=== PATIENT | female | born 1975 | race Caucasian/White ===

== ENCOUNTER 2025-02-13 20:11 | Emergency (ER) | payer OTHER, SELFPAY ==
--- OUTSIDE RECORDS SUMMARY | 2024-10-04 05:33 | XMS_ITS | Continuity of Care Document ---
Author Organization [facility] Address [address] [address] [place] [address] Phone Care Team Providers Care Film Inspector Name Role Phone Azam Gutierres MD Unavailable Unavailabl e Allergies, Adverse Reactions, Alerts Substance Reaction Status Criticality adhesive tape Rash Active No Information latex Angioedema Active No Information acetaminophen ItchingItching Active No Informati on Cephalosporins HivesHives Active No Informatio n doxycycline Nausea/Vomiting Active No Informati on levofloxacin Severe joint pain Active No Informa tion Sulfa (Sulfonamide Antibiotics) Angioedema Active No Information Medications Medication Instructions Dosage Effective Dates (start - stop) Status Comments omeprazole 40 mg capsule,delayed release take 1 capsule by oral route every day before a meal 40 MG - Active Benadryl Allergy 25 mg tablet take 1 tablet by oral route every 4 - 6 hours as needed 25 MG - Active ibuprofen 200 mg tablet take 1 tablet by oral route every 6 hours as needed with food 200 MG - Active metformin 500 mg tablet take 2 tablet by oral route every day - Active Vitamin D2 1,250 mcg (50,000 unit) capsule take 2 tablet by oral route every week 2 tablet - Active Procedures Procedure Date New Level 4 Advance Directives Directive Yes / No Effective Date File Name No Information Encounters Encounter Description Practice Location Reason(s) For Visit Diagnoses Date Provider Providers Copied on Encounter [facility], [address] [address], [place], [place], [id number], [place] tel:[phone] [facility] No Information Chidi Nascimento. [address] [facility] [address], [place], [place], [id number], [place]. tel:[phone] [facility] Level 4 [facility] [address] [address], [place], [place], [id number], [place] tel:[phone] [facility] GI Symptoms or Concerns (chief complaint) Chronic GERDRight upper quadrant painChange in bowel habits Shante Buck. [address], [place], [place], [id number], [place]. tel:[phone] Referring Provider: [place] , [address] [place], [address]. tel:[phone] Family History Family Member Type Diagnosis Age At Onset No Information Payers Payer name Insurance type Covered republican ID Authoriza tirebeka(s) [facility] [id number] Social History Type Description Quantity Date Captured Comments Sex Female Smoking Status No Information Chief Complaint And Reason For Visit No Information Reason For Referral Reason For Referral No Information Plan Of Treatment Date Type Action Status Referral Ordered: CT Abdomen And Pelvis WITH Contrast Appointment date/timeframe: 09/06/2024 ordered Referral Ordered: EGD Appointment date/timeframe: 10/19/2024 ordered Referral Ordered: Colonoscopy Appointment date/timeframe: 10/19/2024 ordered History Of Present Illness Encounter Date Complaint History Of Prese nt Illness GI Symptoms or Concerns This is a very pleasant 49-year-old female who presents as a new patient for evaluation of multiple symptoms. We do not have all records available for us to review. However patient reports having medical issues since 2023. Patient reports starting having abdominal pain with nausea vomiting lasts. Patient was then diagnosed with large ovarian lesion on the left ovary which was wrapping around the small bowel, colon, mesentery. She did have surgery performed to remove the ovarian lesion and states that the lesion was not a malignancy. Patient continued to have abdominal pain and repeat imaging showed ovarian lesion on the right ovary. We do not have any records recent office visits or pathology reports available for us to review at this point. Patient subsequently developed C diff colitis in July 2024. She finished treatment with vancomycin for 2 week course. She has been off vancomycin for approximately 2 weeks and feels much improved. Her diarrhea is much improved as well Functional Status Date Functional Assessmen t No Information Instructions Date Instruction Additional Infor el -increase omeprazole 40 mg once daily-proceed with egd/colonosopy -proceed with CT scan abdomen/pelvis-request lab records done by PCP-f/u in 1-2 months Related to Chronic GERD Assessments Type Assessment Date No Information Patient Care Teams Name Effective Dates (start - stop) Status Members No Information
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
--- OUTSIDE RECORDS SUMMARY | 2025-01-02 09:30 | XMS_ITS | Encounter Summary ---
Author Organization [facility] Address [address] [place] [address] Care Team Providers Care Car Wash Supervisor Name Role Phone Annalee Lerma APRN, CNP Primary Care Provider Reason for Visit * Reason Comments MEDICATION THERAPY MANAGEMENT * Consult/Transfer Care (Routine) - New Request Specialty Diagnoses / Procedures Referred By Chivo welsh Referred To Contact Diagnoses Hidradenitis suppurativa Kiah Denise MD [address] [place] [address] Phone: tel: fax: Referral ID Status Reason Start Date Expiration Date V isits Requested Visits Authorized [id number] New Request 12/18/2024 03/19/2026 1 1 Encounter Details Date Type Department Care Team (Late st Contact Info) Description 01/02/2025 9:30 AM CDT [facility] [address] [phone] Kee Ortega, PharmD [address] [place] [address] Hidradenitis suppurativa (Primary Dx) Social History Tobacco Use Types Packs/Day Years [...] Sex Assigned at Female 06/18/2022 1:13 PM LITIGATION PARALEGAL Legal Sex Female 7:25 AM CDT Gender Identity Not on file Sexual Orientation Not on file 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 Here are the things we discussed: Follow up with [facility] regarding approval or denial of Ilaris I will call you next week to check-in on the status of Ilaris I offer these suggestions to you and your medical providers with the understanding that I may not fully understand your past medical history and the complexity of your health conditions. By helping you be more active in your healthcare and medication management, we hope to improve yourquality of life! Any questions or concerns please call the clinic, or contact me via [employer]. Kee Ortega PharmD Medication Therapy Management Pharmacist - Dermatology [facility] & Naomi Gonzalez documented in this encounter Progress Notes * Kee Ortega PharmD - 01/02/2025 9:30 AM CDT Subjective Susy Soraida De Los Santos is a 49 y.o. female who was referred by Naomi Gonzalez dermatology seen over the phone for medication review/education and medication access. Patient???s main concern today is to initiate biologic therapy. Allergies: Allergies Allergen Reactions Cefdinir Itching, Other, see comments and Gastrointestinal Diaphoresis (sweating) Possibly will react poorly to other beta-lactam antibiotics Methylprednisolone Hives and Other, see comments Consistent pattern of worsened symptoms after completing a course -- similar to a rebound effect Sulfa Antibiotics Hives and Blisters Hydromorphone Other, see comments Intolerance ONLY NEEDS LESS DOSE Clindamycin Gastrointestinal ORAL clindamycin - GI upset TOPICAL clindamycin - hives Doxycycline Gastrointestinal Within 20 minutes, had nonstop vomiting Levofloxacin Edema,generalized and Swelling Prochlorperazine Other, see comments akathesia, wigging out Reglan [Metoclopramide] Other, see comments Akathesia, per patient. Insurance: [employer] Diagnosis: Hidradenitis suppurativa Patient also has history of mast cell activation (significantly triggered in 2019 by pesticide exposure and possibly medication overdosing due to unknown variant liver metabolism, and consequent ongoing chemical intolerance). Per occupational and environmental medicine (Dr. Apple on 11/16/24): We again discussed biologic treatment, which appears to be supported by her [facility] evaluations. We discussed either Xolair (IgE) or Humira (TNF-alpha); the former has had success in [facility] patients, whereas the latter can be used in hidradenitis suppurativa patients, and notably she has had TNF-alpha elevations with labs. - We will reach out to Dr. Chambers of Dermatology regarding biologic medication administration and these medication options. Per rheumatology (Dr. Harper at [facility] on 11/24/24): Her array of symptoms do raise concern tim autoinflammatory syndrome, of which IL-1 blockade could offer some benefit. She is in discussionwith her local phosphoric acid supervisor regarding an agent such as anakinra or canakinumab. As these conversations continue, recommend a trial of Plaquenil 400 mg daily to see if she has improvement in her bone/joint pain. Per dermatology (Dr. Chambers on 12/01/24): If biopsy confirms HS would recommend starting with topical therapy. Would stage her at [facility] stage 1. Could also consider oral agent such as Humira or other biologic but would hold on this pending further work up and treatment of her inflammatory condition. Patient to meet with her phosphoric acid supervisor and corporate risk analyst next week to discuss initiating Plaquenilvs. Anakinra. Will continue to follow and help with management pending biopsy results. Per chart review, unable to view notes from 12/07/24 (Dr. Carrillo with [facility]), but perpatient the anakinra was denied. Canakinumab was also denied, but she's in the process of applying for free drug coverage and has a contact at [employer] ([facility]). Current signs and symptoms: Affected areas include: stomach, feet, mouth, scalp, armpit, groin Per 12/18/[address] Denise: -Patient experiencing extreme pain in the groin and axilla region. It was very painful that last week she went to urgent care and was given antibiotics that were helpful. Overall her quality of life has been significantly impacted by this condition in her axilla and groin. She can no longer sit without pain and can not ride her motorcycle. She feels that she has no quality of life remaining. Last specialist visit and follow up plan: Per 12/18/[address] Denise: - Continue with Hibiclens wash daily with showers - due to the severity, the patient qualifies for systemic treatment - Given she did not tolerate doxycycline in the past and did well with Keflex will renew the medication for a three-month course 500 mg twice daily as below - Given concurrent PCOS we will start spironolactone 100 mg daily. Potassium level recently checkedand within normal limits. Discussed that it is a blood pressure medication and diuretic. Discussed could lead to breast tenderness and spotting - These to above systemic medications she would be a good place to start and we expect her to have substantial improvement. We can think about further escalation to biologic therapy in the future andtherefore we will order biologic screening labs here today. We will also place the referral to [facility] pharmacy to see if they have thoughts on potential biologic therapy especially when considering her mast cell activation syndrome. Does patient have history of: Inflammatory bowel disease no but issues with stomach (no official diagnosis of IBS, but has had severe stomach pain, very loose stools, and also constipation) Cancer no Demyelinating diseases no CHF no Exacerbating factors NSAIDS Beta blockers Corticosteroids Antimalarials Smoking - Social History Tobacco Use Smoking Status Former Current packs/day: 0.00 Types: Cigarettes Quit date: 1985 Years since quittin.5 Smokeless Tobacco Never Obesity - Estimated body mass index is 47.03 kg/m?? as calculated from the following: Height as of 10/02/24: 5' 4 (1.626 m). Weight as of 10/02/24: 274 lb (124.3 kg). Past medication trials: (all of the following were not effective long-term unless specifically stated) Per 12/18/[address] Denise: She had a terrible reaction to topical agents such as clindamycin and benzoyl peroxide. She has also not done well with antibiotics doxycycline. When she took doxycycline last she had to be hospitalized from how much she was throwing up. Spironolactone: tried for a few days, but experienced sweating, swollen ankles, and chills at night Plaquenil: experienced itchiness and tingling. Patient does not want to try methotrexate because she is concerned about methotrexate's side effects, particularly alopecia, and prefers to avoid it unless necessary. Current Medication List: Current Outpatient Medications (Anti-Infective Agents) Medication Sig cephalexin (KEFLEX) 500 MG capsule Take 1 Capsule (500 mg) by mouth two times a day. Current Outpatient Medications (Endocrine & Metabolic Agents) Medication Sig metFORMIN (GLUCOPHAGE) 500 MG tablet Take 1 Tablet (500 mg) by mouth two times a day with meals. Start with 250 mg (1/2 tablet) once daily for 4-7 days, then if tolerated increase to 500 mg (1 tablet) once daily for 4-7 days, then if tolerated increase to 750 mg (1 tablet morning, 1/2 tablet evening), then if tolerated increase to 1000 mg twice daily. Current Outpatient Medications (Cardiovascular Agents) Medication Sig spironolactone (ALDACTONE) 100 MG tablet Take 1 Tablet (100 mg) by mouth daily. Current Outpatient Medications (Antihistamines/Nasal Agents/Cough & Cold/Respiratory/Misc) Medication Sig ALBUTEROL SULFATE HFA IN Inhale 1-2 Puffs as needed. cyproheptadine (PERIACTIN) 4 MG tablet Take 0.5-1 Tablets (2-4 mg) by mouth three times a day as needed. diphenhydrAMINE (BENADRYL) 25 MG tablet Take 1 Tablet (25 mg) by mouth every 6 hours as needed for Itching. Current Outpatient Medications (Gastrointestinal Agents) Medication Sig famotidine (PEPCID) 20 MG tablet Take 1 Tablet by mouth two times a day. omeprazole (PRILOSEC) 20 MG capsule Take 1 Capsule (20 mg) by mouth two times a day. Take 1 hour before a meal. ondansetron (ZOFRAN-ODT) 4 MG disintegrating tablet Take 1 Tablet (4 mg) by mouth every 6 hours as needed for Nausea. Indications: Nausea and Vomiting Current Outpatient Medications (Central Nervous System Agents) Medication Sig LORazepam (ATIVAN) 0.5 MG tablet Take 0.5 Tablets (0.25 mg) by mouth two times daily as needed for Anxiety. Current Outpatient Medications (Neuromuscular Agents) Medication Sig tiZANidine (ZANAFLEX) 2 MG tablet Take 0.5-2 Tablets (1-4 mg) by mouth three times a day as needed. Current Outpatient Medications (Nutritional Products) Medication Sig Vitamin D, Ergocalciferol, 1.25 MG (93146 UT) CAPS Take 1 Capsule (50,000 Units) by mouth two timesa week. Current Outpatient Medications (Dermatological/Anorectal/Mouth-Throat/Dental/Ophthalmic/Otic) Medication Sig diphenhydrAMINE 2 % gel Apply topically three times a day as needed. mupirocin (BACTROBAN) 2 % ointment Apply topically two times a day. With dressing changes Adherence: Med cost concerns: yes, in the process of applying for free drug through [facility] Objective Lab Results Component Value Date/Time WBC 8.8 12/18/2024 03:48 PM HGB 12.8 12/18/2024 03:48 PM MCV 93.1 12/18/2024 03:48 PM PLTS 264 12/18/2024 03:48 PM PMN 5.9 12/18/2024 03:48 PM LYMA 2.2 12/18/2024 03:48 PM MONOA 0.5 12/18/2024 03:48 PM EOSA 0.2 12/18/2024 03:48 PM BASA 0.1 12/18/2024 03:48 PM AST 31 12/18/2024 03:48 PM ALT 26 12/18/2024 03:48 PM ALKPHOS 71 12/18/2024 03:48 PM BILIRUBINTOT 0.3 12/18/2024 03:48 PM ESR 31 (H) 01/13/2021 06:06 PM CRP 2.8 (H) 05/31/2024 08:00 AM Lab Results Component Value Date/Time BUN 13 12/18/2024 03:48 PM SODIUM 140 12/18/2024 03:48 PM K 3.9 12/18/2024 03:48 PM CHLORIDE 106 12/18/2024 03:48 PM BICARB 22 12/18/2024 03:48 PM GLUCOSE 107 (H) 12/18/2024 03:48 PM CREATININE 0.90 12/18/2024 03:48 PM GFR >60 12/18/2024 03:48 PM CA 9.2 12/18/2024 03:48 PM ANIONGAP 12 12/18/2024 03:48 PM HGBA1C 5.1 11/07/2024 06:55 AM Cholesterol Date Value Ref Range Status 02/07/2024 164 0 - 199 mg/dL Final HDL Cholesterol Date Value Ref Range Status 02/07/2024 31 (L) >=40 mg/dL Final LDL, Calculated Date Value Ref Range Status 02/07/2024 96 <130 mg/dL Final Lab Results Component Value Date/Time HBSAG Negative (Non Reactive) 12/18/2024 03:48 PM HBABR <2.0 12/18/2024 03:48 PM HBVCOREAB Negative (Non Reactive) 12/18/2024 03:48 PM ANTIHCV Negative (Non Reactive) 12/18/2024 03:48 PM HIV Negative (Non Reactive) 12/18/2024 03:48 PM TBQF Negative, M. tuberculosis Infection NOT likely 12/18/2024 03:48 PM NIL1 0.032 12/18/2024 03:48 PM BP Readings from Last 3 Encounters: 12/26/24 125/73 10/12/24 134/83 10/02/24 107/81 Pulse Readings from Last 3 Encounters: 10/12/24 84 10/05/24 96 10/02/24 64 Heart Health: As recommended by the [place] [employer], we use information about your health to estimate your risk for a heart attack or stroke. Your risk in the next 10 years is 1.8%. The information we used to estimate your risk is: Your age 49, sex, blood pressure of 107/81 mm Hg, use of blood pressure lowering medication, total cholesterol of 164 mg/dl, HDL (good cholesterol) of 31 mg/dl, no diagnosis of diabetes, no tobacco or nicotine use. You can improve your heart health by doing the following in order of priority: For information on self-directed lifestyle change for weight management, go to www.myhealthwizard.org PriorityWizard 02/21/2024 9:00 AM PHQ-9 PHQ9 Score - Smartform (Adult) 0 Index Date: No date on file. Vaccinations: --Immunization status: not up to date, did not discuss with patient due to time limitations Immunization History Administered Date(s) Administered Td 07/15/1997 Assessment Medications reviewed for adherence, indication, convenience, safety & affordability. BP goal: <130/80. Pt is at goal. LDL goal: no statin indicated. Pt is at goal. HgbA1C goal: <5.7%. Pt is at goal. 1. Hidradenitis suppurativa / autoinflammatory syndrome and biologic therapy DTP: Indication - Needs additional medication therapy - Synergistic therapy DTP Status: Pending Patient is indicated for biologic therapy due to failed trials of first- and second-line therapies for hidradenitis suppurativa. She has multiple conditions closely managed by different specialists and is in the process of obtaining canakinumab (Ilaris) per rheumatology. However, if she is unable to obtain the medication, then she is open to trying Humira. Consider avoiding Cosentyx due to past history of some irritable bowel symptoms. There is currently no evidence that the biologics we discussed today has an increased risk of mast cell activation. However, patient should be especially cautious and closely monitor for any new or worsening symptoms when initiating any new therapies. Plan Await approval or denial for Ilaris Pharmacist will follow-up next week Follow up with your providers as scheduled and recommended. AVS prepared with new medication info Updated [facility] med list and reviewed medications including indications with patient. Kee Ortega PharmD Clinical Pharmacist Medication Therapy Management Program Billing Requirements: Recipient of visit: Patient Medicare CI: no clinician location: home patient location: home Billing based on: Flat Fee Total time spent with patient: 31 - 45 min minutes # of DTPs: 1 # of DTPs resolved: 0 documented in this encounter Plan of Treatment Upcoming Encounters Date Type Department Care Team (Late st Contact Info) Description 02/26/2025 8:00 AM CDT Telemedicine [facility] [address] [place] [address] Nanda Ritter, PhD, LP [address] [place] [address] 03/08/2025 4:00 PM CDT Phone Visit [facility] [address] [place] [address] Bertrand Apple MD [address] [place] [address] 03/19/2025 8:00 AM CDT Telemedicine [facility] [address] [place] [address] Nanda Ritter, PhD, LP [address] [place] [address] 04/02/2025 8:00 AM CDT Telemedicine [facility] [address] [place] [address] Nadna Ritter, PhD, LP [address] [place] [address] 04/16/2025 8:00 AM LITIGATION PARALEGAL Telemedicine [facility] Management [address] [facility] [address] Nanda Ritter, PhD, LP [address] [place] [address] 04/30/2025 8:00 AM LITIGATION PARALEGAL Telemedicine [facility] [address] [facility] [address] Nanda Ritter, PhD, LP [address] [place] [address] 05/14/2025 8:00 AM LITIGATION PARALEGAL [facility] [address] [place] [address] Nanda Ritter, PhD, LP [address] [place] [address] 05/28/2025 8:00 AM LITIGATION PARALEGAL Telemedicine [facility] [address] [place] [address] Nanda Ritter, PhD, LP [address] [place] [address] Scheduled Referrals Name Type Priority Associated Diagnoses Orde r Schedule SPECIALTY PHARMACY-MEDICATION THERAPY MGMT-ADULT/PEDS Referral Routine Hidradenitis suppurativa Ordered: 12/18/2024 documented as of this encounter Visit Diagnoses Diagnosis Hidradenitis suppurativa- Primary Hidradenitis documented in this encounter Additional Health Concerns Infection Onset Date Last Indicated Resolved Time MRSA Comment:10/01/2017 from urgency room in [facility] absess 10/11/2018 10/11/2018 documented as of this encounter Care Teams Car Wash Supervisor Relationship Specialty Start Date End Date Annalee Lerma APRN, WILLIAM [address] [place] [phone] PCP - General Nurse Practitioner 04/12/24 documented as of this encounter
--- OUTSIDE RECORDS SUMMARY | 2025-01-08 07:00 | XMS_ITS | Encounter Summary ---
Author Organization [facility] Address [address] [place] [address] Care Team Providers Care Mixed Animal Veterinarian Name Role Phone DemiAnnalee terry Kaykay MIMS, WILLIAM Primary Care Provider Reason for Visit * Reason Onset Date Comments CHRONIC PAIN 01/07/2025 Encounter Details Date Type Department Care Team (Latest Contact Info) Description 01/08/2025 7:00 AM CDT Telemedicine [facility] Pain Management [address] 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 Patient location: home, Clinician location: home.office. At 8am today, I called Susy from my home office via [employer] and conducted this 53min video session. Susy was alone in her home. Patient presents today for an individual session, to address her chronic physical pain and associated complex health issues. Start time: 7:00am, End time: 7:53am. Total face to face Video time 53 minutes. Extended time ([id number]) was required for today???s session due to the patient having a highly complicated overall health presentation (medical and mental health). Based on today's clinical assessment of the patient, patient appears to have the capacity to participate and benefit from psychotherapeutic intervention. 02/21/2024 9:00 AM Last 3 PHQ-9 Scores PHQ-9 Score - SmartForm (Adult) 0 01/02/2025 9:30 AM LAST GAD7 SCORE DATE USHA-7 TOTAL SCORE 3 Focus of this session: Susy discussed relevant recent events since our last session. She underwent T8 injection by Dr. Mason also on 01/02/2025. She had productive meeting with [facility] last wk as well as [place] pharmacist. Tomorrow will be a very stressful day - will be going to court to give a statement. Her brother's murder is being released. Susy is giving a statement. I offered an additional video session tomorrow at 6pm to debrief. She accepted. Mood on today's call stable yet stressed. Much support and encouragement were offered during [...] be seen in approximately 2 weeks on 01/15/2025. Follow up on continued pacing, self-care. Future f/u 2024 Video sessions with this Psychologist: 01/09 at 6pm 8/4 at 8am 818 at 8am 9/2 [...] Info) Description 02/26/2025 8:00 AM CDT Telemedicine [facility] Pain Management [address] [place] [address] Nanda Ritter, PhD, LP [address] [place] [address] 03/08/2025 4:00 PM CDT Phone Visit [facility] [address] [place] [address] Bertrand Apple MD [address] [place] [address] 03/19/2025 8:00 AM CDT [facility] [address] [facility] [place] [address] Nanda Ritter, PhD, LP [address] [place] [address] 04/02/2025 8:00 AM CDT [facility] [address] [facility] [place] [address] Nanda Ritter, PhD, LP [address] [place] [address] 04/16/2025 8:00 AM HOSE TESTER [facility] Management [address] [place] [address] Nanda Ritter, PhD, LP [address] [place] [address] 04/30/2025 8:00 AM HOSE TESTER [facility] [address] [place] [address] Nanda Ritter, PhD, LP [address] [place] [address] 05/14/2025 8:00 AM HOSE TESTER [facility] [address] [place] [address] Nanda Ritter, PhD, LP [address] [place] [address] 05/28/2025 8:00 AM HOSE TESTER [facility] Management [address] [place] [address] Nanda Ritter, PhD, LP [address] [place] [address] documented as of this encounter Visit Diagnoses Diagnosis Pain disorder associated with psychological factors and medical condition ([facility])- Primary Chronic pain disorder Chronic pain syndrome documented in this encounter Additional Health Concerns Infection Onset Date Last Indicated Resolved Time MRSA Comment:10/01/2017 from urgency room in [facility] absess 10/11/2018 10/11/2018 documented as of this encounter Care Teams Mixed Animal Veterinarian Relationship Specialty Start Date End Date Annalee Lerma, PROCESS CONTROL PROGRAMMER, FLATWARE MAKER [address] [place] [phone] PCP - General Nurse Practitioner 04/12/24 documented as of this encounter
--- OUTSIDE RECORDS SUMMARY | 2025-01-09 17:00 | XMS_ITS | Encounter Summary ---
Author Organization Replaced by [facility] Address [address] [place] [address] Care Team Providers Care Telephone Technician Name Role Phone MargaritoYannick leungmarielena Cintron APRN, WILLIAM Primary Care Provider Encounter Details Date Type Department Care Team (Latest Contact Info) Description 01/09/2025 5:00 PM CDT Telemedicine [facility] Pain Management [address] [facility] 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 Patient location: home, Clinician location: home. Correction: location for this clinician was [facility] clinic office. At 6pm today, I called Susy from my home office via Dubizzle platform and conducted this 53min video session. Susy was alone in her home. Patient presents today for an individual session, to address her chronic physical pain and associated complex health issues. Start time: 5:00pm, End time: 5:53pm. Total face to face Video time 53 minutes. Extended time (31046) was required for today???s session due to [...] relevant recent events since our last session. Today was a very stressful day as she attended the parole hearing for her brother's murderer. Susy provided a victim statement for the parole board. She sounded very positive about this overall experience and admitted that it was a very emotional experience. It had a positive outcome - parole and clemency were denied which she was very grateful for. Mood on today's call relieved. Much support and encouragement were offered during [...] f/u 2024 Video sessions with this Psychologist: 01/15 at 8am 01/29 at 8am 9/2 Tues at 8am 915 Mon at 8am 10/6 Mon at 8am 10/20 Mon at 8am 11/3 Mon at 8am 11/17 Mon at 8am 12/1 Mon at 8am 12/15 Mon at 8am Collaborations: Occupational Medicine: Bertrand Apple MD and Godfrey Alejandra PA-C; [facility] Pain Management Clinic: Davis Mason MD. Ongoing therapy to address symptoms discussed in today's appointment. Nanda Ritter, PhD, ABPP, LP Board Certified in Clinical Psychology documented in this encounter Plan of Treatment Upcoming Encounters Date Type Department Care Team (Late st Contact Info) Description 02/26/2025 8:00 AM CDT Telemedicine [facility] Pain Management [address] [facility] [place] [address] Nanda Ritter, PhD, LP [address] [place] [address] 03/08/2025 4:00 PM CDT Phone Visit [facility] [address] [place] [address] Bertrand Apple MD [address] [place] [address] 03/19/2025 8:00 AM CDT Telemedicine [facility] Pain Management [address] [facility] [place] [address] Nanda Ritter, PhD, LP [address] [place] [address] 04/02/2025 8:00 AM CDT Telemedicine [facility] Pain Management [address] [facility] [place] [address] Nanda Ritter, PhD, LP [address] [place] [address] 04/16/2025 8:00 AM GAS PLUMBER Telemedicine [facility] Pain Management [address] [facility] [place] [address] Nanda Ritter, PhD, LP [address] [place] [address] 04/30/2025 8:00 AM GAS PLUMBER Telemedicine [facility] Pain Management [address] [place] [address] Nanda Ritter, PhD, LP [address] [place] [address] 05/14/2025 8:00 AM GAS PLUMBER Telemedicine [facility] Pain Management [address] [facility] [place] [address] Nanda Ritter, PhD, LP [address] [place] [address] 05/28/2025 8:00 AM GAS PLUMBER Telemedicine [facility] Pain Management [address] [place] [address] Nanda Ritter, PhD, LP [address] [place] [id number] documented as of this encounter Visit Diagnoses Diagnosis Pain disorder associated with psychological factors and medical condition (HRC)- Primary Chronic pain disorder Chronic pain syndrome documented in this encounter Additional Health Concerns Infection Onset Date Last Indicated Resolved Time MRSA Comment:10/01/2017 from urgency room in [facility] absess 10/11/2018 10/11/2018 documented as of this encounter Care Teams Telephone Technician Relationship Specialty Start Date End Date Annalee Lerma APRN, FLEET OPERATIONS MANAGER [address] [place] [phone] PCP - General Nurse Practitioner 04/12/24 documented as of this encounter
--- OUTSIDE RECORDS SUMMARY | 2025-01-15 08:00 | XMS_ITS | Encounter Summary ---
Author Organization [facility] Address [address] [place] [address] Care Team Providers Care Field Traffic Investigator Name Role Phone MargaritoYannick leungmarielena Cintron APRN, WILLIAM Primary Care Provider Encounter Details Date Type Department Care Team (Latest Contact Info) Description 01/15/2025 8:00 AM CDT Telemedicine [facility] Pain Management [address] [facility] 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 Patient location: home, Clinician location: home. At 6pm today, I called Susy from my home office via Addictive platform and conducted this 53min video session. Susy was alone in her home. Patient presents today for an individual session, to address her chronic physical pain and associated complex health issues. Start time: 8:00am, End time: 8:53am. Total face to face Video time 53 minutes. Extended time (37660) was required for today???s session due to [...] relevant recent events since our last session. Processed family updates. No new pain issues noted. Mood on today's call euthymic and stable. Much support and encouragement were offered during [...] f/u 2024 Video sessions with this Psychologist: 01/29 at 8am 9/2 Tues at 8am 9/15 Mon at 8am 10/6 Mon at 8am 10/20 Mon at 8am 11/3 Mon at 8am 11/17 Mon at 8am 12/1 Mon at 8am 12/15 Mon at 8am Collaborations: Occupational Medicine: Bertrand Apple MD and Godfrey Alejandra PA-C; [facility] Pain Management Clinic: Davis Mason MD. Ongoing therapy to address symptoms discussed in today's appointment. Nanda Ritter, PhD, ABPP, LP Board Certified in Clinical Psychology documented in this encounter Plan of Treatment Upcoming Encounters Date Type Department Care Team (Late st Contact Info) Description 02/26/2025 8:00 AM CDT Telemedicine [facility] Pain Management [address] [place] [address] Nanda Ritter, PhD, LP [address] [place] [address] 03/08/2025 4:00 PM CDT Phone Visit [facility] [address] [place] [address] Bertrand Apple MD [address] [place] [address] 03/19/2025 8:00 AM CDT Telemedicine [facility] Pain Management [address] [place] [address] Nanda Ritter, PhD, LP [facility] [place] [address] 04/02/2025 8:00 AM CDT Telemedicine [facility] Pain Management [address] [place] [address] Nanda Ritter, PhD, LP [address] [place] [address] 04/16/2025 8:[address] WORKER Telemedicine [facility] Pain Management [address] [place] [address] Nanda Ritter, PhD, LP [facility] [place] [address] 04/30/2025 8:[address] WORKER Telemedicine [facility] Pain Management [address] [place] [address] Nanda Ritter, PhD, LP [facility] [place] [address] 05/14/2025 8:[address] WORKER Telemedicine [facility] Pain Management [address] [facility] [place] [address] Nanda Ritter, PhD, LP [address] [place] [address] 05/28/2025 8:00 AM [facility] Pain Management [address] 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
--- OUTSIDE RECORDS SUMMARY | 2025-01-29 08:00 | XMS_ITS | Encounter Summary ---
Author Organization [facility] Address [address] [place] [address] Care Team Providers Care Health Science Specialist Name Role Phone MargaritoYannick leungmarielena Cintron APRN, WILLIAM Primary Care Provider Encounter Details Date Type Department Care Team (Latest Contact Info) Description 01/29/2025 8:00 AM CDT Telemedicine [facility] Pain Management [address] [facility] 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 Patient location: home, Clinician location: home. At 8am today, I called Susy from my home office via Noonswoon platform and conducted this 53min video session. Susy was alone in her home. Patient presents today for an individual session, to address her chronic physical pain and associated complex health issues. Start time: 8:00am, End time: 8:53am. Total face to face Video time 53 minutes. Extended time (76120) was required for today???s session due to [...] relevant recent events since our last session. Started on new Rx, Anakinra. Had reactions to the injections (took it for 3 nights) that included breaking out in sores and itching. Finally took last night off. Is considering reducing the dosing to every other or every 3rd night. Processed work and family updates. Concerned that her job might be ending at the end of the yr - layoffs have started. Mood on today's call euthymic and stable. [...] the patient be seen in approximately 2 weeks. Follow up on continued pacing, self-care. Future f/u 2024 Video sessions with this Psychologist: 02/13 at 8am 9/15 Mon at 8am 10/6 Mon at 8am 10/20 Mon at 8am 11/3 Mon at 8am 11/17 Mon at 8am 12/1 Mon at 8am 12/15 Mon at 8am Collaborations: Occupational Medicine: Bertrand Apple MD and Godfrey Alejandra PA-C; [facility] Pain Management Clinic: Davis Mason MD. Ongoing therapy to address symptoms discussed in today's appointment. Nanda Ritter, PhD, ABPP, LP Board Certified in Clinical Psychology documented in this encounter Plan of Treatment Upcoming Encounters Date Type Department Care Team (Late st Contact Info) Description 02/26/2025 8:00 AM CDT Telemedicine [facility] Pain Management [address] [place] [address] Nanda Ritter, PhD, LP [address] [place] [address] 03/08/2025 4:00 PM CDT Phone Visit [facility] [address] [place] [address] Bertrand Apple MD [address] [place] [address] 03/19/2025 8:00 AM CDT Telemedicine [facility] Pain Management [address] [facility] [place] [address] Nanda Ritter, PhD, LP [address] [place] [address] 04/02/2025 8:00 AM CDT Telemedicine [facility] Pain Management [address] [place] [address] Nanda Ritter, PhD, LP [address] [place] [address] 04/16/2025 8:00 AM CABLE TELEVISION PROGRAM DIRECTOR Telemedicine [facility] Pain Management [address] [place] [address] Nanda Ritter, PhD, LP [address] [place] [address] 04/30/2025 8:00 AM CABLE TELEVISION PROGRAM DIRECTOR Telemedicine [facility] Pain Management [address] [place] [address] Nanda Ritter, PhD, LP [address] [place] [address] 05/14/2025 8:00 AM [facility] Pain Management [address] [facility] [place] [address] Nanda Ritter, PhD, LP [address] [place] [address] 05/28/2025 8:00 AM [facility] Pain Management [address] [facility] 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
--- OUTSIDE RECORDS SUMMARY | 2025-01-29 09:00 | XMS_ITS | Encounter Summary ---
Author Organization [facility] Address [address] [place] [address] Care Team Providers Care Pool Servicer Name Role Phone Elsewhere, Pcp Primary Care Provider Unavailabl e Reason for Visit * Outpatient (Routine) - Closed Specialty Diagnoses / Procedures Referred By Chivo welsh Referred To Contact Clinical Genomics Diagnoses Hives Angioedema Acquired Personal History Unspecified Adverse Effect Of Drug Or Medicament Initial Mass Ovary Lump In The Right Breast Unspecified Quadrant Nodule Skin Rash Periodic Fever Syndromes (HCC) Boni Renteria M.D. [address] [place] [phone] Phone: tel: fax: [facility] Referral ID Status Reason Start Date Expiration Date Visits Re quested Visits Authorized [id number] Closed 12/28/2024 06/29/2026 1 1 Encounter Details Date Type Department Care Team (Late st Contact Info) Description 01/29/2025 9:00 AM CDT Clinical Support Department of Medical Genetics in [place], [place] [address] [place] [phone] Boni Renteria M.D. [address] [place] [phone] Poonam Lund, Unlicensiraida [place] Social History Tobacco Use Types Packs/Day Years Used Date Smoking Tobacco: Former Cigarettes 0.3 2 0 06/22/1992 - 06/22/1994 Passive Smoke Exposure: Past Smokeless Tobacco: Never Comments:Former smoker years ago Alcohol Use Standard Drinks/Week Comments Not Currently 0 (1 standard drink = 0.6 oz pure alcohol) Just casual drinks in my 20 s and 30 s . [facility] Utilities Answer Date Recorded In the past 12 months has th e [employer], gas, oil, or water company threatened to shut off services in your home? No 08/31/2024 Hunger Vital Sign Answer Date Recorded Within the past 12 months, y ou worried that your food would run out before you got the money to buy more. Never true 09/01/19 25 Within the past 12 months, t he food you bought just didn't last and you didn't have money to get more. Never true 08/31/2024 PRAPARE - Transportation Answer Date Re corded In the past 12 months, has l ack of transportation kept you from medical appointments or from getting medications? No 08/13 In the past 12 months, has l ack of transportation kept you from meetings, work, or from getting things needed for daily living? No 08/31/2024 Depression Answer Date Recor ded PHQ-9 Total Score (max 27) 5 09/13 Housing Stability Answer Date Recorded What is your living situation today? [facility] 08/31/2024 Comments No Sex and Gender Information Value Date Recorded Sex Assigned at Female 08/31/2024 9:56 PM CDT Legal Sex Female 5:48 AM BRICKMASON CONTRACTOR Gender Identity Female 08/31/2024 9:56 PM CDT Sexual Orientation Straight 08/31/2024 9: 56 PM CDT documented as of this encounter Progress Notes * Poonam Lund, Unlicensed MA - 01/29/2025 9:00 AM CDT Images from the original note were not included. REFERRAL Boni Renteria M.D. CHIEF COMPLAINT/PURPOSE OF VISIT Obtain and construct family history for clinical assessment. HISTORY OF PRESENT ILLNESS Please see Dr. Markos Gracia's Clinical Genomics consultation for further details. FAMILY HISTORY Per the referral of Boni Renteria M.D., the patient's family was contacted to update the family history on file from 11/03/24. The patient reported that there were a few changes to the health of any of the previously reviewed family members. The pedigree is available to review in the Media tab and in [employer]'s pedigree tool. The patient will be seen in Clinical Genomics by Dr. Markos Gracia. Please see the consult note regarding pertinent findings of the family history in relation to the differential diagnosis and clinical assessment. Pedigree Image 01/29 Total time: 30 minutes documented in this encounter Plan of Treatment Not on file documented as of this encounter Visit Diagnoses Not on filedocumented in this encounter Additional Health Concerns Assessment Noted Time PHQ-9 Depression Total Score: 5 09/14/19 25 12:35 PM CDT documented as of this encounter Care Teams Pool Servicer Relationship Specialty Start Date End Date Elsewhere, Pcp PCP - General Internal Medicine 09/15/24 documented as of this encounter
--- OUTSIDE RECORDS SUMMARY | 2025-02-09 08:00 | XMS_ITS | Encounter Summary ---
Author Organization [facility] Address [address] [place] [id number] Care Team Providers Care Nurses' Association Counselor Name Role Phone Elsewhere, Pcp Primary Care [...] Fever Syndromes (HCC) Boni Renteria M.D. [address] [place] [phone] Phone: tel: fax: [facility] Referral ID Status Reason Start Date Expiration Date Visits Re quested Visits Authorized [id number] Closed 12/28/2024 06/29/2026 1 1 Encounter Details Date Type Department Care Team (Latest Contact Info) Description 02/09/2025 8:00 AM CDT Comprehensive Visit Department of Medical Genetics in [place], [place] [address] [place] [phone] Markos Gracia M.D. [address] [place] [phone] Ana Luisa Jarvis M.S., [facility] [address] [place] [phone] Hives (Primary Dx); Liver Disease; Periodic Fever Syndromes (HCC); Lymphadenopathy Social History Tobacco Use Types Packs/Day Years Used Date Smoking Tobacco: Former Cigarettes 0.3 2 0 06/22/1992 - 06/22/1994 Passive Smoke Exposure: Past Smokeless Tobacco: Never Comments:Former smoker years ago Alcohol Use Standard Drinks/Week Comments Not Currently 0 (1 standard drink = 0.6 oz pure alcohol) Just casual drinks in my 20 s and 30 s . [facility] Utilities Answer Date Recorded In the past 12 months has th e [place], gas, oil, or water [employer] threatened to shut off services in your [...] your living situation today? I have a 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[employer] Gender Identity Female 08/31/2024 9:56 PM CDT Sexual Orientation Straight 08/31/2024 9: 56 PM CDT documented as of this encounter Last Filed Vital Signs Vital Sign Reading Time Taken Comments Blood Pressure 139/80 02/09/2025 8:24 AM CDT Pulse 72 02/09/2025 8:24 AM CDT Temperature - - Respiratory Rate - - Oxygen Saturation - - Inhaled Oxygen Concentration - - Weight 125 kg (275 lb 0.4 oz) 02/09/2025 8:24 AM CDT Height 161.7 cm (5' 3.66) 02/09/2025 8:24 AM CD T Body Mass Index 47.71 02/09/2025 8:24 AM CDT documented in this encounter Consult Notes * Ana Luisa Jarvis M.S., [facility] - 02/09/2025 8:00 AM CDT Images from the original note were not included. REFERRING PROVIDER Boni Renteria M.D. 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 female referred by Boni Renteria M.D. due to a lifelong history of episodic symptoms including fevers, hives, flushing, itching, facial swelling, bone pain. Please refer to Dr. Markos Gracia???s consultation for additional details. Susy previously underwent genetic testing for periodic fevers, please see below for additional information. Susy attended today's consultation alone. FAMILY HISTORY A detailed family history was obtained from the patient and a pedigree was constructed. The family history was documented using [employer]'s Pedigree tool and will also be for viewing under the Media tab of [employer]. Our risk assessment is based upon medical and family history information as provided by the patient or family member, and may change in the future should new information be obtained. RELEVANT FAMILY HISTORY: Son (age 28) with history of similar symptoms to Susy. He has foot sores, and frequent rashes including elevated histamines. His history is also significant for autism spectrum disorder and sensory processing disorder. Sister (age 49) with history of skin sores. Brother (age 48) with history of hidradenitis suppurativa, and skin sores. Mother (age 70) with history of chronic hives, hidradenitis suppurativa, and skin sores. She had polio as a child. Maternal aunt (age unknown) with history of severe eczema, and alopecia. Maternal aunt (age unknown) with history of chronic hives and Eran's disease. Maternal female first cousin (age unknown) with history of chronic hives, Eran's disease, eczema. She also has a history of thyroid cancer. Maternal male first cousin (age unknown) with history of Graves' disease. He has a young son (12mo)with skin sores. Maternal grandfather passed at age 76 due to complications from Parkinson's disease. He had a history of eczema, heat induced skin rashes, and multiple strokes. The patient???s maternal ancestry is Korean and Greek; the patient???s paternal ancestry is Greek, Christianity, [place], and [place]. There is no reported consanguinity. IMPRESSION/REPORT/PLAN Please see Dr. Markos Gracia???s clinic note for further details pertaining to the Impression/Report/Plan. PATIENT EDUCATION Background information on genetics and heredity was reviewed. Chromosomes are structures that carryour genetic information. Humans have a total of 46 chromosomes. The chromosomes come in 23 pairs. We inherit one member of each of the 23 pairs of chromosomes from one parent and the other member of each of the 23 pairs of chromosomes from the other parent. The first 22 pairs of chromosomes are thesame in both sexes. The last pair of chromosomes are sex chromosomes. Typical females have two X chromosomes and typical males have an X and a Y chromosome. The terms male/man and female/woman refer to sex assigned at . The genetic information on our chromosomes is organized into genes. Genes give our body information on how to function and are made up of nucleotides (A, T, C, G). In genes, these nucleotides are read in blocks of three. Every human has the same set of genes. Changes to theinstructional code of genes that cause health problems are called pathogenic variants or mutations. Fabricio-Danlos syndromes Fabricio-Danlos syndrome (EDS) is a group of clinically and genetically heterogeneous heritable connective tissue disorders characterized by joint hypermobility, skin hyperextensibility, and tissue fragility. The clinical spectrum includes easy bruising, abnormal wound healing, atrophic scarring, and, in some subtypes, vascular and internal organ fragility. There are currently 13- 14 recognized subtypes, each with distinct clinical and genetic features, but with significant phenotypic overlap among them. The genetic etiology of EDS is diverse. Most subtypes are caused by pathogenic variants in genes encoding fibrillar collagens (types I, III, and V) or enzymes involved in collagen biosynthesis and modification, as well as genes affecting extracellular matrix components and proteoglycan biosynthesis. For example, classical EDS is primarily due to mutations in COL5A1 or COL5A2 (type V collagen), while vascular EDS is caused by variants in COL3A1 (type III collagen). However, the most common subtype, hypermobile EDS (hEDS), remains genetically undefined, and diagnosis is based on clinical criteria alone. Previous Genetic Testing Results Susy underwent the Periodic Fever Panel through [employer] (reported: August 2024, sample: blood). Testing included sequencing and deletion/duplication analysis of ELANE, LPIN2, MEFV, MVK, NLRP12, NLRP3, NOD2, PSTPIP1, TNFAIP3, [id number]. 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 The variant identified in Susy has previously been seen in ClinVar (Variation ID: [id number]). This allele is present in 2.3% of those individuals with [place] ancestry in [employer] including 6 homozygotes. This variant is reported in the medical literature in individuals with familial cold-induced autoinflammatory syndrome (FCAS) and Muckle-Wells syndrome (MWS), both also known as cryopyrin-associated periodic syndromes (CAPS), as well as in patients with other autoinflammatory syndromes, acquired disorders including Schnitzler syndrome, and also in asymptomatic carriers (Darcie 2002, Minoo 2001, Kilinc 2023, Long 2017, Tahir 2013, Spence 2018, Chicas 2022, Mark 2014,Kim 2023). The presence of this variant in population databases, with a high population frequency (including homozygotes) suggests that this variant may be benign. It is possible that this variant may be contributing to inflammatory processes in combination with other factors. Pathogenic variants in NLRP3 are associated with several disorders inherited in an autosomal dominant manner that represent a disease spectrum referred to as cryopyrin-associated periodic syndrome (CAPS): CINCA syndrome, familial cold- induced inflammatory syndrome and Muckle-Wells syndrome. Based on the information we have at this time, the variant in NLRP3 is classified as a variant of uncertain significance. A VUS is a change in the spelling of a gene for which the clinical implications are unknown. A VUS is a common finding on genetic testing. It could be a non-harmful change in the DNA (a benign variant) that has no clinical significance, or it could be a harmful change (a pathogenic mutation). A VUS is not commonly used to make medical decisions or change medical managementbecause its significance is unknown. Pathogenic (disease-causing) variants associated with NLRP3-related conditions can exhibit incomplete/low penetrance and variable expressivity. Incomplete penetrance refers to the phenomenon where not all individuals carrying a pathogenic NLRP3 variant manifest clinical symptoms. Variable expressivity describes the wide range of severity and organ involvement among affected individuals, even within the same family or with the same variant. The genetic causes of autoinflammatory conditions are quite complicated. There are many different pathways involved, and the same gene can sometimes cause a range of symptoms (even within the same family). Some autoinflammatory conditions are polygenic meaning many genetic changes in different genes each have a cumulative effect often triggered by environmental factors. We are leaning more about this everyday, but are no where near a complete understanding. Approximate cost, insurance coverage, and laws governing genetic discrimination were discussed. Risks, benefits, and limitations of genetic testing were discussed. Implications of possible test results, including positive, negative, and variant of uncertain significance, were discussed. Psychosocial support and counseling were provided to the patient. PLAN Susy elected to proceed with the [place] Primary Immunodeficiency - Custom Analysis through [employer] with an insurance benefits investigation. [employer] will reach out to Susy if her [id number] cost for testing exceeds $100. Susy will complete a blood draw today for cryopre servation. Results are expected in 4-6 weeks from when the sample arrives at the laboratory. Recommendations for management will be made at the time of results disclosure. If the results are negative, I will send Susy a portal message. If the results are positive or complex, Susy will be offered a video or in- person return appointment. It was a pleasure to meet Susy. She is welcome to contact us with any questions. PATIENT EDUCATION Patient expressed understanding of this information. The impression and plan were discussed in detail. There were no apparent barriers to learning or understanding. Questions were answered. I remain available to answer any questions in the future. Total time: 30 minutes * Markos Gracia M.D. - 02/09/2025 8:00 AM CDT SUBJECTIVE CHIEF COMPLAINT / REASON FOR CONSULT Susy De Los Santos is a delightful 50 y.o. female who was referred by Boni Renteria M.D. forevaluation of multiple concerns. Genetic counselor present: Ana Luisa Jarvis [facility]. HISTORY OF PRESENT ILLNESS History provided by: patient. This is a now 50-year-old here for her first visit with Medical Genetics at [place]. She has a long and complex history, with symptoms going back to childhood. She reports a lifelong challenge with episodic fevers, pain, rash, and more. Her symptoms have all gotten a lot worse since 2019, and she notes increasing sensitivities to a wide range of environmental exposures. She has had some pharmacogenomic testing which demonstrated poor metabolism for certain pathways. She has extensive laboratory evidence of inflammatory processes. She has been diagnosed with hidradenitis suppurativa. She had genetic testing for a small panel of periodic fevers genes that was unrevealing. 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 This variant is quite common in the general population and has been seen in healthy homozygous individuals. Additional reports reviewed: historical medical records and lab reports The following portions of the patient's history were reviewed and updated as appropriate: allergies, current medications, family history, medical history, social history, surgical history, developmental history, history, and problem list Family history Pedigree reviewed and available on the computerized medical record. She has one son who is 28 and has high functioning autism spectrum disorder, also developed some skin lesions. He has four childrenwho are generally healthy and doing well so far. Her father at age 46 of lung cancer. Mother also has hidradenitis suppurativa. Family History Relation Problem Comments Mother - Aliyah (Alive, age 70 - 71y) Chronic Hives Diabetes (Age: 60) Hidradenitis suppurativa Obesity (Age: 20) Polio (Age: 2) She had polio related surgeries until she was 17 Skin sores all over Stroke (Age: 55) Father - Matt ( at age 46) Lung cancer (Age: 48) from cancer Smoker Throat cancer (Age: 32) Sister (Alive, age 49y) MTHFR double gene Ovarian growth hysterectomy Skin sores chordial nevus Brother (Alive, age 48y) Hidradenitis suppurativa Lead poisoning child mcmahon Skin Sores feet would just rip and bleed and could not walk, groin Stroke Mother's Sister - Eliz (Alive, age 73y) Parkinson disease (Age: 65) Mother's Sister - Lori (Alive, age 72y) Breast cancer (Age: 64) Heart attack (Age: 65) Mother's Sister - Peggy (Alive, age 75y) Diabetes Parkinson disease (Age: 72) Mother's Sister (Alive) Mother's Sister (Alive) Chronic Hives Eran's disease Mother's Sister (Alive) Alopecia Skin scaley, sever eczema Mother's Sister (Alive) Chronic Hives Eczema Mother's Brother - Ziggy ( at age 69) Parkinson disease (Age: 55) from parkinsons Mother's Brother (Alive) Rheumatic fever Mother's Brother (Alive) Heart attack Mother's Brother - Feliberto (Alive, age 55y) Eczema Heart attack Lashell Parkinson White syndrome Father's Sister (Alive) Father's Brother ( at age 55-65) Lung cancer Smoker Father's Brother ( at age 55-65) Lung cancer Father's Brother ( at age 50s) Diabetes Seizures result of stroke Stroke Maternal Grandmother - Linda (Alive, age 90 - 100y) Diabetes (Age: 75) Heart failure Maternal Grandfather - Kiet ( at age 76) Eczema Heart attack Parkinson disease (Age: 65) from parkinsons Rashes / Skin problems heat induced, Stroke (Age: 49) He had several strokes before he got Parkinson???s disease Lashell Parkinson White syndrome Paternal Grandmother - Beatriz ( at age 70s) Diabetes (Age: 40) Stroke (Age: 56) from a stroke Paternal Grandfather - Matt Shah ( at age 91) CA - testicular, malignant (Age: 76) removed Granddaughter (Alive, age 5y) Developmental delay Granddaughter (Alive, age 7y) sensory processing disorder Grandson (Alive, age 6y) Autism spectrum disorder Speech disorder non verbal sensory processing disorder Grandson (Alive, age 4y) Half-Brother ( at age 32) Frequent fevers mostly in childhood Maternal Cousin (Alive) PCOS - Polycystic ovarian syndrome Lashell Parkinson White syndrome Maternal Cousin (Alive) Skin disorder severe eczema, been hospitalized.Sores have burst, Maternal Cousin (Alive) Skin disorder severe eczema, been hospitalized.Sores have burst, Maternal Cousin (Alive) Graves' disease Maternal Cousin (Alive) Autism Maternal Cousin (Alive) POTS Lashell Parkinson White syndrome Maternal Cousin (Alive) Autism spectrum disorder Maternal Cousin (Alive) Alopecia Autism spectrum disorder Maternal Cousin (Alive) Chronic Hives Eczema Eran's disease Thyroid cancer Maternal Cousin (Alive) sensory processing disorders Maternal Cousin (Alive) Stomach cancer (Age: 20 - 29) Maternal Cousin (Alive) Lymphoma Maternal Cousin (Alive) Autism spectrum disorder Maternal Cousin (Fetus - Spontaneous ) Maternal Cousin (Alive, age 12m) Skin sores gets skins sores so bad that they burst,and have to be very careful dressing them Maternal Cousin (Alive) Skin disorder severe eczema, been hospitalized.Sores have burst, Nephew (Alive) ADD Niece (Alive, age 26y) Niece (Alive) Niece/Nephew (Fetus - Spontaneous ) Other (Alive) Chronic Hives Other (Alive) Other (Alive) Other (Alive) ADD / ADHD Asperger's syndrome uncertain Other (Alive, age 6y) Autism spectrum disorder non verbal Other (Fetus - Spontaneous ) Other (Alive) Paternal Cousin ( at age 21) Osteosarcoma (Age: 10 - 19) Paternal Cousin ( at age 8) Lymphoma Son (Alive, age 28y) Autism spectrum disorder high functioning Foot sores seems to be similar to probands Hydrocele Rashes / Skin problems elevated blood histamine, frequent rashes similar to proband Sensory processing disorder REVIEW OF SYSTEMS REVIEW OF SYSTEMS OBJECTIVE PHYSICAL EXAM No unusual syndromic or dysmorphic facial features. ASSESSMENT / PLAN #1 Hives #2 Liver Disease #3 Periodic Fever Syndromes (HCC) #4 Lymphadenopathy We reviewed her phenotype in detail. We explained that genetic causes can be found in some, but notmost patients with immune dysregulation disorders. Her previous panel was unrevealing, but only tested a small fraction of known genes associated with autoinflammatory processes. We recommended expanded testing with a larger panel genes associated with autoinflammatory syndromes. Discussed the possibilities of positive results, negative results, and variations of uncertain significance. We will be in touch with her once results are available documented in this encounter Plan of Treatment Scheduled Orders Name Type Priority Associated Diagnoses Orde r Schedule [id number] Genomic [place] Custom Analysis - Miscellaneous Test Lab Add-On Hives Liver Disease Periodic Fever Syndromes (HCC) Lymphadenopathy Expected: 02/13/2025, Expires: 05/15/2026 documented as of this encounter Results * Cryopreservation for Molecular Genetic Studies (02/09/2025 8:53 AM CDT) Comment A DNA specimen has been stored for future genomic studies. This specimen has been stored at the request of the ordering physician for anticipated future testing. In some instances, a portion of the specimen may remain available (by consent) for use by the individual and/or family. This is not a DNA banking service. If terminal system operator, guaranteed specimen storage is required, DNA banking should be considered. The Genomic Extraction Core extracted DNA. DNA Volume (microliters): 500+ Please review the following table to determine the possible number of tests that can be added for send out testing. DNA (ul) Possible Send Outs (~100 ul) <100 Recommend Redraw 100 1 250 2 500 5 02/09/2025 8:56 PM CDT DTL Specimen WB Whole Blood 02/09/2025 8:56 PM CDT DTL Released By RONDA SHARMA 02/09/2025 8:56 PM CDT DTL Blood (Blood, Venous) 02/09/2025 8:53 AM CDT 02/09/2025 9:24 AM CDT Markos Gracia M.D. LAB GENETIC TESTING Final Result [facility] [address] [place] [address], [facility] DTL [address] [place] [address] documented in this encounter Visit Diagnoses Diagnosis Hives- Primary Liver Disease Periodic Fever Syndromes (HCC) Lymphadenopathy documented in this encounter Additional Health Concerns Assessment Noted Time PHQ-9 Depression Total Score: 5 09/14/19 25 12:35 PM CDT documented as of this encounter Care Teams Nurses' Association Counselor Relationship Specialty Start Date End Date Elsewhere, Pcp PCP - General Internal Medicine 09/15/24 documented as of this encounter
--- OUTSIDE RECORDS SUMMARY | 2025-02-09 08:41 | XMS_ITS | Encounter Summary ---
Author Organization [facility] Address [address] [place] [id number] Care Team Providers Care Moisture Machine Tender Name Role Phone Elsewhere, Pcp Primary Care Provider Unavailabl e Encounter Details Date Type Department Care Team (Latest Contact Info) Description 02/09/2025 8:41 AM CDT - 02/09/2025 11:59 PM CDT Hospital Encounter Department of Laboratory Medicine and Pathology, [facility], in [place], [place] [address] [place] [address] Markos Gracia M.D. [address] [place] [address] Hives; Liver Disease; Periodic Fever Syndromes (HCC); Lymphadenopathy Discharge Disposition: Home or Self Care Social History Tobacco Use Types Packs/Day Years Used Date Smoking Tobacco: Former Cigarettes 0.3 2 0 06/22/1992 - 06/22/1994 Passive Smoke Exposure: Past Smokeless Tobacco: Never Comments:Former smoker years ago Alcohol Use Standard Drinks/Week Comments Not Currently 0 (1 standard drink = 0.6 oz pure alcohol) Just casual drinks in my 20 s and 30 s . [facility] Utilities Answer Date Recorded In the past 12 months has [facility] electric, gas, oil, or water company threatened to [...] your living situation today? I have a [facility] place to live 08/31/2024 Comments No Sex and Gender Information Value Date Recorded Sex Assigned at Female 08/31/2024 9:56 PM CDT Legal Sex Female 5:48 AM [employer] Gender Identity Female 08/31/2024 9:56 PM CDT Sexual Orientation Straight 08/31/2024 9: 56 PM CDT documented as of this encounter Medications at Time of Discharge albuterol 90 mcg/actuation inhaler Inhale 1-2 puffs as needed. cholecalciferol (Vitamin D3) 50 mcg (2,000 Unit) capsule Take 1 capsule by mouth daily. 11/04/2024 diphenhydrAMINE (BenadryL) 12.5 mg/5 mL elixir Take 12.5 mg by mouth 2 (two) times a day. Can take up to 4 times daily if needed ergocalciferol (DrisdoL) 50,000 Unit capsule Take 50,000 Units by mouth 2 (two) times a week. Wednesday and 07/17/2024 hydroxychloroquine (PlaqueniL) 200 mg tabletIndications:Pa in Joint Take 2 tablets (400 mg total) by mouth daily. 60 tablet 5 11/24/2024 ibuprofen 200 mg tablet Take 2 tablets by mouth every 4 (four) hours as needed. LORazepam (Ativan) 1 mg tablet Take 0.5-1 mg by mouth as needed for anxiety. 08/18/2022 metFORMIN (Glucophage) 500 mg tablet Take 500 mg by mouth 2 (two) times a day with meals. 07/03/2024 omeprazole (PriLOSEC) [address] capsule Take 40 mg by mouth 2 (two) times a day before morning and evening meals. 08/21/2024 ondansetron ODT (Zofran-ODT) 4 mg disintegrating tablet Dissolve 4 mg in the mouth every 8 (eight) hours as needed. 07/20/2024 tiZANidine (Zanaflex) 2 mg tablet Take 1-4 mg by mouth 3 (three) times a day as needed. 05/30/2024 documented as of this encounter Plan of Treatment Not on file documented as of this encounter Procedures Procedure Name Priority Date/Time Associated Diagnosis Comments CRYOPRESERVATION FOR MOLEC STUDIES Routine 02/09/2025 8:53 AM CDT Hives Liver Disease Periodic Fever Syndromes (HCC) Lymphadenopathy documented in this encounter Results * Cryopreservation for Molecular [...] is not a DNA banking service. If long-term, guaranteed specimen storage is required, DNA banking [...] 8:53 AM CDT 02/09/2025 9:24 AM CDT us Markos Gracia M.D. LAB GENETIC TESTING Final Result [facility] [address] [place] [address], [facility] [address] [place] [address] documented in this encounter Visit Diagnoses Diagnosis Hives Liver Disease Periodic Fever Syndromes (HCC) Lymphadenopathy documented in this encounter Additional Health Concerns Assessment Noted Time PHQ-9 Depression Total Score: 5 09/14/19 25 12:35 PM CDT documented as of this encounter Care Teams Moisture Machine Tender Relationship Specialty Start Date End Date Elsewhere, Pcp PCP - General Internal Medicine 09/15/24 documented as of this encounter
[2025-02-13] VITALS (9 sets, daily range): BP systolic 150–152; BP diastolic 64–105; PULSE 63–78; RESP 16–18; TEMP 36.7; O2SAT 92–97; BMI 45.4
--- OUTSIDE RECORDS SUMMARY | 2025-02-13 08:00 | XMS_ITS | Encounter Summary ---
Author Organization [facility] Address [address] [place] [address] Care Team Providers Care Rn Camp Name Role Phone Annalee Lerma APRN, WILLIAM Primary Care Provider Reason for Referral * Consult/Transfer Care (Routine) - New Request Specialty Diagnoses / Procedures Referred By Contruben t Referred To Contact Diagnoses Chronic pain disorder Pain disorder associated with psychological factors and medical condition (HRC) Nanda Ritter, PhD, [address] [place] [address] Phone: tel: fax: Referral ID Status Reason Start Date Expiration Date V isits Requested Visits Authorized [id number] New Request 02/13/2025 05/15/2026 1 1 Scheduling Instructions Your clinician has recommended an appointment with [facility]. You can quickly schedule your appointment by signing in to your online account at [email or web address] or through the text message you may have received. You can also make an appointment by calling [phone]. We also suggest you call your health insurance provider about your benefits and coverage for this appointment. Question Answer Appointment Urgency? Within 1 Week (Urgent) Reason for Visit All other derm conditions - Hidradenitis Suppurativa Comments Pt dx'd by Dr. Annetta Chambers (who left ) w/ HS. Started on Akinara by Rheum at [facility], had severe adverse side effects. Seeing MTM MichaelGerardo Shannon. Needs to establish care with new Derm to start Cosentyx. Please call pt to schedule. Pt in significant distress. Has undergone workup at [facility]. Encounter Details Date Type Department Care Team (Latest Contact Info) Description 02/13/2025 8:00 AM CDT Telemedicine [facility] [address] [facility] 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 Susy was alone in her home. Patient presents today for an individual session, to address her chronic physical pain and associated complex health issues. Start time: 8:00am, End time: 8:53am. Total face to face Video time 53 minutes. Extended time (04347) was required for today???s session due to [...] relevant recent events since our last session. Has stopped the Anakinra b/c of the severe outbreak of sores it was causing on her skin along w/ not feeling well (vomiting, coughing, dizziness, lumps on her skin). This Rx was prescribed by her rheum at [facility]. Susy doesn't have a compliance intern at b/c her former derm left/is on leave untilthe end of Feb (Dr. Chambers) and when she returns will be changing clinic location ([employer]). Susy is in significant distress - says she feels like she is going to . I offered to place an urgent order for her to see Derm which she appreciated. Mood on today's call stressed. Much support and encouragement were offered [...] f/u 2024 Video sessions with this Psychologist: 02/26 at 8am 10/6 Mon at 8am 10/20 Mon at 8am 11/3 Mon at 8am 11/17 Mon at 8am 12/1 Mon at 8am 12/15 Mon at 8am Collaborations: Occupational Medicine: Bertrand Apple MD and Godfrey Alejandra PA-C; [facility] Pain Management Clinic: Davis Mason MD. Ongoing therapy to address symptoms discussed in today's appointment. Nanda Ritter, PhD, ABPP, LP Board Certified in Clinical Psychology documented in this encounter Plan of Treatment Upcoming Encounters Date Type Department Care Team (Late st Contact Info) Description 02/26/2025 8:00 AM CDT Telemedicine [facility] [address] [facility] [place] [address] Nanda Ritter, PhD, LP [address] [place] [address] 03/08/2025 4:00 PM CDT Phone Visit [address] [place] [address] Bertrand Apple MD [address] [place] [address] 03/19/2025 8:00 AM CDT Telemedicine [facility] [address] [facility] [place] [address] Nanda Ritter, PhD, LP [address] [place] [address] 04/02/2025 8:00 AM CDT Telemedicine [facility] [address] [facility] 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 [address] Nanda Ritter, PhD, LP [address] [place], [place] [id number] Scheduled Referrals Name Type Priority Associated Diagnoses Orde r Schedule Dermatology Consult-Adult/Peds Referral Routine Chronic pain disorder Pain disorder associated with psychological factors and medical condition (HRC) Ordered: 02/13/2025 documented as of this encounter Visit Diagnoses Diagnosis Pain disorder associated with psychological factors and medical condition (HRC)- Primary Chronic pain disorder Chronic pain syndrome documented in this encounter Additional Health Concerns Infection Onset Date Last Indicated Resolved Time MRSA Comment:10/01/2017 from urgency room in RLQ absess 10/11/2018 10/11/2018 documented as of this encounter Care Teams Rn Camp Relationship Specialty Start Date End Date Annalee Lerma APRN, WILLIAM [address] [place] [id number] PCP - General Nurse Practitioner 04/12/24 documented as of this encounter
--- OUTSIDE RECORDS SUMMARY | 2025-02-13 17:40 | XMS_ITS | Encounter Summary ---
Author Organization [email or web address] Address [address] [place] [address] Care Team Providers Care Vice President Residential [employer] Sales Name Role Phone Annalee Lerma Saida [employer], [employer] Primary Care Provider Reason for Visit * Reason Comments Other Encounter Details Date Type Department Care Team (Late st Contact Info) Description 02/13/2025 5:40 PM CDT Office Visit [facility] [address] [place] [address] Alec Varela MD [address] [place] [address] Acute intractable headache, unspecified headache type; Nausea and vomiting, unspecified vomiting type; Mast cell disorder; Vertigo Social History Tobacco Use Types Packs/Day Years [...] Sex Assigned at Female 06/18/2022 1:13 PM [employer] Legal Sex Female 7:25 AM CDT Gender Identity Not on file Sexual Orientation Not on file 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 year old female presents to the Urgent Care today for evaluation of severe headache pointing to the back of her head on the right side associated with pain going to the right ear armpit and chest wall. Also has been having dizzy spells as though the room spinning, nausea and dry heaving in addition to headache. She claims that she has been diagnosed with a Mast Cell Disorder and recently was placed on new medication for her mass cell disorder and within a day or so she started having above symptoms especially with a having rash and she contact her provider and it was discontinued. Despite discontinuing this new medication, she continues to have above symptoms and therefore she was told to come to the urgent care. She also stated that her provider has a standing order for some labs whenever she comes in therefore requesting them to be done here. Reviewed Nursing Notes: Sandra Del Rosario RN 02/13/25 2233 Signed Susy De Los Santos is a 50 y.o.female presents to the Urgent Care for Other . Patient presents with severe pressure in the back of her head on the R side, also into R ear, armpit and several other places. Hx of mast cell problems and was put on a new medication (akinnira?) in the past week. Sxs have since worsened, and she has spots of breakout all over her body. Was told to be seen in . Also notes dizziness, feeling really terrible, nausea and burning of her skin. REVIEW OF SYSTEMS 10 review of systems were reviewed and normal except what were noted under HPI. PRIOR HISTORY Medications: Medications - Previous to this Encounter[1] Reviewed via Easy [employer] Chart Review/CareEverywhere: Allergies Past Medical HistoryProblem List[2] Past Surgical History Social HistorySocial History[3] PHYSICAL EXAM Vitals Reviewed: BP (!) 167/108 (BP Location: Right Forearm, BP Cuff Size: Regular - Long) Pulse 72 Temp 36.8 ??C (98.2 ??F) (Oral) Resp 20 LMP 12/13/2017 SpO2 97% GENERAL: Healthy-appearing patient. Alert oriented x3. In no acute respiratory distress. In moderate acute distress secondary to the nausea and vomiting as well as headache. HEAD: Normocephalic atraumatic. EYE: Nonicteric sclera. Conjunctiva without injection. ENT: Neck supple. Both ear canals and tympanic membranes appear to be intact and normal. Oropharynxis clear. Nasal mucosa is pink and dry. No sinus tenderness. CV: Regular rate and rhythm without murmur. Distal pulses are equally palpable and appear to be normal. PULM: Normal auscultation of both lungs. No wheezing, crackles and rales appreciated. MSK: Both upper and lower extremities appear to be normal. Does have reproducible tenderness over the base of the right side of the skull but not over the trapezius muscle. There is also tenderness upon palpation of the right parietal bone as well but again there is no areas of ecchymosis, scalp erythema or skin abrasion. NEURO: Alert and oriented x3. Able to communicate in full sentences. LABS - IMAGING - MEDICATIONS LABS/EKG: No results found for any visits on 02/13/25. IMAGING: No results found. INTERVENTIONS: Administrations This Visit diphenhydrAMINE (BENADRYL) injection 50 mg Admin Date 02/13/2025 19:18 Action Given Dose 50 mg Route Intravenous Documented By Sandra Del Rosario RN ketorolac (TORADOL) injection 15 mg Admin Date 02/13/2025 18:53 Action Given Dose 15 mg Route Intravenous Documented By Yanet Garsia RN ondansetron (ZOFRAN-ODT) disintegrating tablet 8 mg Admin Date 02/13/2025 18:07 Action Given Dose 8 mg Route Oral Documented By Liam Gomez sodium chloride 0.9% bolus 1,000 mL Admin Date 02/13/2025 18:45 Action Started Dose 1,000 mL Route Intravenous Documented By Sandra Del Rosario RN MEDICAL DECISION MAKING Patient seen and assessed. Presented to Urgent Care for moderate amount of symptoms as described above. At this point explained to her that the best route for her care is to have her go to the ER forfurther evaluation and treatment however she started crying stating that she does not want to wait for another 3- 4 hours at the ER. She would like to see what can be done he would before she decided to go. Again I explained to her that the best care that she would get we will be at the ER because of the potential prolonged stay that she required but again she would like to have the preliminary care here. Because of the this we will proceed with the Zofran sublingually it 8 mg, ketorolac 15 mg IV and then Benadryl 50 mg IV. Unfortunately we do not have famotidine in the IV form. Despite receiving the IV fluids and all the treatment as stated above, she stated that she felt a bit better but her headache and nausea and vomiting still comes and goes in waves. Because of the this my recommendation is to have her go to the ER for further evaluation and treatment. Moreover we will be closing in 20 minutes therefore another good reason for her to go since she started having above symptoms. The patient voiced understanding. The patient stated that she will be going to [facility] ER for further evaluation. Total time: Over 3 hours and half a which were direct treatment and [id number] visit. ASSESSMENT & PLAN DIAGNOSIS: ICD-10-CM 1. Acute intractable headache, unspecified headache type R51.9 ketorolac (TORADOL) injection 15 mg diphenhydrAMINE (BENADRYL) injection 50 mg DISCONTINUED: ketorolac (TORADOL) injection 15 mg 2. Nausea and vomiting, unspecified vomiting type R11.2 sodium chloride 0.9% bolus 1,000 mL ondansetron (ZOFRAN-ODT) disintegrating tablet 8 mg diphenhydrAMINE (BENADRYL) injection 50 mg 3. Mast cell disorder D47.09 4. Vertigo R42 Orders Placed This Encounter Medications DISCONTD: ketorolac (TORADOL) injection 15 mg sodium chloride 0.9% bolus 1,000 mL ondansetron (ZOFRAN-ODT) disintegrating tablet 8 mg ketorolac (TORADOL) injection 15 mg diphenhydrAMINE (BENADRYL) injection 50 mg DISPOSITION: Discharge Home Alec Varela M.D. [id number] [1] Outpatient Medications Prior to Visit Medication Sig Note Dispense Refill ALBUTEROL SULFATE HFA IN Inhale 1-2 Puffs as needed. cephalexin (KEFLEX) 500 MG capsule Take 1 Capsule (500 mg) by mouth two times a day. 180 Capsule 0 cyproheptadine (PERIACTIN) 4 MG tablet Take 0.5-1 Tablets (2-4 mg) by mouth three times a day as needed. 90 Tablet 0 diphenhydrAMINE (BENADRYL) 25 MG tablet Take 1 Tablet (25 mg) by mouth every 6 hours as needed for Itching. diphenhydrAMINE 2 % gel Apply topically three times a day as needed. 103 mL 1 famotidine (PEPCID) 20 MG tablet Take 1 Tablet by mouth two times a day. 60 Tablet 11 LORazepam (ATIVAN) 0.5 MG tablet Take 0.5 Tablets (0.25 mg) by mouth two times daily as needed for Anxiety. 30 Tablet 0 metFORMIN (GLUCOPHAGE) 500 MG tablet Take 1 [...] tolerated increase to 1000 mg twice daily. 01/02/2025: Only able to tolerate 500 mg per day 180 Tablet 3 mupirocin (BACTROBAN) 2 % ointment Apply topically two times a day. With dressing changes 15 g 0 omeprazole (PRILOSEC) 20 MG capsule Take 1 Capsule (20 mg) by mouth two times a day. Take 1 hour before a meal. 60 Capsule 3 ondansetron (ZOFRAN-ODT) 4 MG disintegrating tablet Take 1 Tablet (4 mg) by mouth every 6 hours as needed for Nausea. Indications: Nausea and Vomiting 60 Tablet 2 tiZANidine (ZANAFLEX) 2 MG tablet Take 0.5-2 Tablets (1-4 mg) by mouth three times a day as needed.60 Tablet 0 Vitamin D, Ergocalciferol, 1.25 MG (76245 UT) CAPS Take 1 Capsule (50,000 Units) by mouth two timesa week. No facility-administered medications prior to visit. [2] Patient Active Problem List Diagnosis Herpes labialis Stress incontinence Extended spectrum beta lactamase (ESBL) resistance Morbid obesity (HRC) Intermittent asthma (HRC) High plasma histamine Mast cell activation syndrome (HRC) PCOS (polycystic ovarian syndrome) (HRC) Gastrojejunal ulcer Gastroesophageal reflux disease Bilateral elbow joint pain Chest pain Urinary urgency Nausea with vomiting, unspecified Itching Liver disorder (HRC) Right ovarian cyst Post-traumatic stress disorder, chronic (HRC) Mass of ovary Costochondritis Intercostal neuralgia [3] Social History Tobacco Use Smoking status: Former Current packs/day: 0.00 Types: Cigarettes Quit date: 1985 Years since quittin.6 Smokeless tobacco: Never Vaping Use Vaping status: Never Used Substance Use Topics Alcohol use: Never Alcohol/week: 0.0 standard drinks of alcohol Drug use: No documented in this encounter Nursing Notes * Sandra Del Rosario RN - 02/13/2025 5:40 PM CDT Susy De Los Santos is a 50 y.o.female presents to the Urgent Care for Other . Patient presents with severe pressure in the back of her head on the R side, also into R ear, armpit and several other places. Hx of mast cell problems and was put on a new medication (akinnira?) in the past week. Sxs have since worsened, and she has spots of breakout all over her body. Was told to be seen in . Also notes dizziness, feeling really terrible, nausea and burning of her skin. documented in this encounter Plan of Treatment Upcoming Encounters Date Type Department Care Team (Late st Contact Info) Description 02/26/2025 8:00 AM CDT Telemedicine [facility] [address] [facility] [place] [address] Nanda Ritter, PhD, LP formerly [facility] [place] [address] 03/08/2025 4:00 PM CDT Phone Visit [facility] [address] [place] [address] Bertrand Apple MD [address] [place] [address] 03/19/2025 8:00 AM CDT Telemedicine [facility] [address] [facility] [address] Nanda Ritter, PhD, LP [address] [place] [address] 04/02/2025 8:00 AM CDT [facility] [address] [facility] [address] Nanda Ritter, PhD, LP [address] [place] [address] 04/16/2025 8:00 AM [employer] Telemedicine [facility] [address] [facility] [place] [address] Nanda Ritter, PhD, LP [address] [place] [address] 04/30/2025 8:00 AM [employer] Telemedicine [facility] [address] [facility] [place] [address] Nanda Ritter, PhD, LP [address] [place] [address] 05/14/2025 8:00 AM [facility] [address] [facility] [place] [address] Nanda Ritter, PhD, LP [address] [place] [address] 05/28/2025 8:00 AM [employer] IN[employer] [facility] [address] [facility] 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 documented in this encounter Administered Medications Inactive Administered Medications - up to 3 most recent administrations Medication Order MAR Action Action Date Dose Rate Site diphenhydrAMINE (BENADRYL) injection 50 mg 50 mg, Intravenous, ONCE, On Wed02/13/25 at 1930, For 1 doseIndications:Acute intractable headache, unspecified headache type,Nausea and vomiting, unspecified vomiting type Given 02/13/2025 7:18 PM CDT 50 mg ketorolac (TORADOL) injection 15 mg 15 mg, Intravenous, ONCE, On Wed02/13/25 at 1915, For 1 doseIndications:Acute intractable headache, unspecified headache type Given 02/13/2025 6:53 PM CDT 15 mg ondansetron (ZOFRAN-ODT) disintegrating tablet 8 mg 8 mg, Oral, ONCE, On Wed02/13/25 at 1830, For 1 dose, Do not swallow tablet whole. Allow to dissolve on the tongue without chewing.Indications:Nausea and vomiting, unspecified vomiting type Given 02/13/2025 6:07 PM CDT 8 mg sodium chloride 0.9% bolus 1,000 mL 1,000 mL, Intravenous, Administer over 1 Hours, ONCE, On Wed02/13/25 at 1830, For 1 doseIndications:Nausea and vomiting, unspecified vomiting type Started 02/13/2025 6:45 PM CDT 1,000 mL documented in this encounter Additional Health Concerns Infection Onset Date Last Indicated Resolved Time MRSA Comment:10/01/2017 from urgency [facility] 10/11/2018 10/11/2018 documented as of this encounter Care Teams Vice President [employer]idential [employer] Relationship Specialty Start Date End Date Annalee Lerma APRN, WILLIAM [address] [place] [address] PCP - General Nurse Practitioner 04/12/24 documented as of this encounter
--- OUTSIDE RECORDS SUMMARY | 2025-02-13 19:00 | XMS_ITS | Encounter Summary ---
Author Organization [facility] Address [address] [place] [address] Care Team Providers Care Machine I Engraver Name Role Phone MargaritomadhuAnnalee APRN, DIRECTOR OF RETAIL Primary Care Provider Encounter Details Date Type Department Care Team (Late st Contact Info) Description 02/13/2025 7:00 PM CDT Lab Visit [facility] [address] [place] [address] Mast cell activation syndrome (HRC); Pesticide poisoning, accidental or unintentional, subsequent encounter; Fatigue due to exposure, subsequent encounter; CY poor metabolizer (HRC); CYP2C9 intermediate metabolizer (HRC); CYP2D6 intermediate metabolizer (HRC); Drug reaction, subsequent encounter; Nausea and vomiting, unspecified vomiting type; Hives; Dysarthria; Exposure to chemical irritant; Irritant dermatitis; Environmental exposure; Hidradenitis suppurativa Social History Tobacco Use Types Packs/Day Years [...] Sex Assigned at Female 06/18/2022 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 Legal Sex Female 7:25 AM CDT Gender Identity Not on file Sexual Orientation Not on file 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 [place] [address] Bertrand Apple MD [address] [place] [address] 03/19/2025 8:00 AM CDT [facility] [address] [place] [address] Nanda Ritter, PhD, LP [address] [place] [address] 04/02/2025 8:00 AM CDT [facility] [address] [place] [address] Nanda Ritter, PhD, LP [address] [place] [address] 04/16/2025 8:00 AM [facility] [address] [facility] [place] [address] Nanda Ritter, PhD, LP [address] [place] [address] 04/30/2025 8:00 AM [facility] [address] [facility] [place] [address] Nanda Ritter, PhD, LP [address] [place] [address] 05/14/2025 8:00 AM [facility] [address] [facility] [place] [address] Nanda Ritter, PhD, LP [address] [place] [address] 05/28/2025 8:00 AM [facility] [address] [facility] [place] [address] Nanda Ritter, PhD, LP [address] [place] [id number] Pending Results Name Type Priority Associated Diagnoses Date /Time Carbon Monoxide,Blood Level Lab Routine Mast cell activation syndrome (HRC) Pesticide poisoning, accidental or unintentional, subsequent encounter Fatigue due to exposure, subsequent encounter CY poor metabolizer (HRC) CYP2C9 intermediate metabolizer (HRC) CYP2D6 intermediate metabolizer (HRC) Drug reaction, subsequent encounter Nausea and vomiting, unspecified vomiting type Hives Dysarthria Exposure to chemical irritant Irritant dermatitis Environmental exposure 02/13/2025 7:20 PM CDT IgE Receptor Antibody Lab Routine Mast cell activation syndrome (HRC) Pesticide poisoning, accidental or unintentional, subsequent encounter Fatigue due to exposure, subsequent encounter CY poor metabolizer (HRC) CYP2C9 intermediate metabolizer (HRC) CYP2D6 intermediate metabolizer (HRC) Drug reaction, subsequent encounter Nausea and vomiting, unspecified vomiting type Hives Dysarthria Exposure to chemical irritant Irritant dermatitis Environmental exposure 02/13/2025 7:20 PM CDT IgE Total Lab Routine Mast cell activation syndrome (HRC) Pesticide poisoning, accidental or unintentional, subsequent encounter Fatigue due to exposure, subsequent encounter CY poor metabolizer (HRC) CYP2C9 intermediate metabolizer (HRC) CYP2D6 intermediate metabolizer (HRC) Drug reaction, subsequent encounter Nausea and vomiting, unspecified vomiting type Hives Dysarthria Exposure to chemical irritant Irritant dermatitis Environmental exposure 02/13/2025 7:20 PM CDT Tryptase Total Lab Routine Mast cell activation syndrome (HRC) Pesticide poisoning, accidental or unintentional, subsequent encounter Fatigue due to exposure, subsequent encounter CY poor metabolizer (HRC) CYP2C9 intermediate metabolizer (HRC) CYP2D6 intermediate metabolizer (HRC) Drug reaction, subsequent encounter Nausea and vomiting, unspecified vomiting type Hives Dysarthria Exposure to chemical irritant Irritant dermatitis Environmental exposure 02/13/2025 7:20 PM CDT Prostaglandin D2 (PG D2), Blood Lab Routine Mast cell activation syndrome (HRC) Pesticide poisoning, accidental or unintentional, subsequent encounter Fatigue due to exposure, subsequent encounter CY poor metabolizer (HRC) CYP2C9 intermediate metabolizer (HRC) CYP2D6 intermediate metabolizer (HRC) Drug reaction, subsequent encounter Nausea and vomiting, unspecified vomiting type Hives Dysarthria Exposure to chemical irritant Irritant dermatitis Environmental exposure 02/13/2025 7:20 PM CDT Complete Blood Count -W/DIFF Lab Routine Mast cell activation syndrome (HRC) Pesticide poisoning, accidental or unintentional, subsequent encounter Fatigue due to exposure, subsequent encounter CY poor metabolizer (HRC) CYP2C9 intermediate metabolizer (HRC) CYP2D6 intermediate metabolizer (HRC) Drug reaction, subsequent encounter Nausea and vomiting, unspecified vomiting type Hives Dysarthria Exposure to chemical irritant Irritant dermatitis Environmental exposure 02/13/2025 7:20 PM CDT Chromogranin A Lab Routine Mast cell activation syndrome (HRC) Pesticide poisoning, accidental or unintentional, subsequent encounter Fatigue due to exposure, subsequent encounter CY poor metabolizer (HRC) CYP2C9 intermediate metabolizer (HRC) CYP2D6 intermediate metabolizer (HRC) Drug reaction, subsequent encounter Nausea and vomiting, unspecified vomiting type Hives Dysarthria Exposure to chemical irritant Irritant dermatitis Environmental exposure 02/13/2025 7:20 PM CDT Comp Metabolic Panel Lab Routine Mast cell activation syndrome (HRC) Pesticide poisoning, accidental or unintentional, subsequent encounter Fatigue due to exposure, subsequent encounter CY poor metabolizer (HRC) CYP2C9 intermediate metabolizer (HRC) CYP2D6 intermediate metabolizer (HRC) Drug reaction, subsequent encounter Nausea and vomiting, unspecified vomiting type Hives Dysarthria Exposure to chemical irritant Irritant dermatitis Environmental exposure 02/13/2025 7:20 PM CDT Cytokine Panel Lab Routine Mast cell activation syndrome (HRC) Pesticide poisoning, accidental or unintentional, subsequent encounter Fatigue due to exposure, subsequent encounter CY poor metabolizer (HRC) CYP2C9 intermediate metabolizer (HRC) CYP2D6 intermediate metabolizer (HRC) Drug reaction, subsequent encounter Nausea and vomiting, unspecified vomiting type Hives Dysarthria Exposure to chemical irritant Irritant dermatitis Environmental exposure 02/13/2025 7:20 PM CDT GT (Gamma GT) Lab Routine Mast cell activation syndrome (HRC) Pesticide poisoning, accidental or unintentional, subsequent encounter Fatigue due to exposure, subsequent encounter CY poor metabolizer (HRC) CYP2C9 intermediate metabolizer (HRC) CYP2D6 intermediate metabolizer (HRC) Drug reaction, subsequent encounter Nausea and vomiting, unspecified vomiting type Hives Dysarthria Exposure to chemical irritant Irritant dermatitis Environmental exposure 02/13/2025 7:20 PM CDT Anti-Xa (heparin or LMWH or fondaparinux assay): Unfractionated Heparin (e.g. heparin infusion) Lab Routine Mast cell activation syndrome (HRC) Pesticide poisoning, accidental or unintentional, subsequent encounter Fatigue due to exposure, subsequent encounter CY poor metabolizer (HRC) CYP2C9 intermediate metabolizer (HRC) CYP2D6 intermediate metabolizer (HRC) Drug reaction, subsequent encounter Nausea and vomiting, unspecified vomiting type Hives Dysarthria Exposure to chemical irritant Irritant dermatitis Environmental exposure 02/13/2025 7:20 PM CDT C-Reactive Protein (Cardiac) Lab Routine Hidradenitis suppurativa Mast cell activation syndrome (HRC) Pesticide poisoning, accidental or unintentional, subsequent encounter Fatigue due to exposure, subsequent encounter CY poor metabolizer (HRC) CYP2C9 intermediate metabolizer (HRC) CYP2D6 intermediate metabolizer (HRC) Drug reaction, subsequent encounter Nausea and vomiting, unspecified vomiting type Hives Dysarthria Exposure to chemical irritant Irritant dermatitis Environmental exposure 02/13/2025 7:20 PM CDT XA Unfractionated Heparin Lab Routine Mast cell activation syndrome (HRC) Pesticide poisoning, accidental or unintentional, subsequent encounter Fatigue due to exposure, subsequent encounter CY poor metabolizer (HRC) CYP2C9 intermediate metabolizer (HRC) CYP2D6 intermediate metabolizer (HRC) Drug reaction, subsequent encounter Nausea and vomiting, unspecified vomiting type Hives Dysarthria Exposure to chemical irritant Irritant dermatitis Environmental exposure 02/13/2025 7:20 PM CDT documented as of this encounter Visit Diagnoses Diagnosis Mast cell activation syndrome (HRC) Pesticide poisoning, accidental or unintentional, subsequent encounter Fatigue due to exposure, subsequent encounter CY poor metabolizer (HRC) CYP2C9 intermediate metabolizer (HRC) CYP2D6 intermediate metabolizer (HRC) Drug reaction, subsequent encounter Nausea and vomiting, unspecified vomiting type Hives Urticaria, unspecified Dysarthria Exposure to chemical irritant Irritant dermatitis Contact dermatitis and other eczema, due to unspecified cause Environmental exposure Hidradenitis suppurativa Hidradenitis documented in this encounter Additional Health Concerns Infection Onset Date Last Indicated Resolved Time MRSA Comment:10/01/2017 from urgency room in RL absess 10/11/2018 10/11/2018 documented as of this encounter Care Teams Machine I Engraver Relationship Specialty Start Date End Date Annalee Lerma APRN, DIRECTOR OF RETAIL [address] [place] [id number] PCP - General Nurse Practitioner 04/12/24 documented as of this encounter
--- NOTE | 2025-02-13 21:53 | ED.GENADULT ---
HPI - General Adult General Date Seen: 02/13/25 Chief complaint: Headache/Migraine Stated complaint: pressure in head Time Seen by Provider: 02/13/25 21:31 History of Present Illness HPI narrative: 50-year-old female presenting to the ER today, accompanied by her , for evaluation of right-sided headache, vertigo, nausea and vomiting. She reports a very complex past medical history. She has apparently been struggling with mast cell activation syndrome with symptoms of intermittent hives for the past several months or couple of years. She has been working with a specialist through [facility], a specialist through [facility], and a specialist at [facility]. She was recently started on a medication that has caused an outbreak of skin sores. She has been giving herself daily injections of that medication for the past 2 weeks. Beginning a couple of days ago on Wednesday when she was riding in the car per she beginning having spinning vertigo and nausea. Along with that she has also developed some bad pain in the right side of her head that sometimes is behind her ear and sometimes on the right frontal area behind her eye. It sounds like she has had headaches off and on over the past several months, apparently related to other chronic medical conditions. However she has not had a headache similar to the 1 she is having this time. This 1 is worse. In addition to headache she has had ongoing trouble with intermittent vertigo and spinning. Sometimes she feels unsteady and was staggering when she is walking. She has blurry vision. She has been nauseous and vomiting (nonbloody). No fever. No fall or head injury. She was seen at an Urgent Care in [place] today and told to come to the ER. Per medical records printed for me by nursing staff she was seen at [facility] today for headache. Blood pressure was 148/110. Pulse 72. Temp 98.2?. Oxygen 98%. Per urgent care notes she had presented for headache going to the back of her head on the right side with pain going to her right ear, armpit, and also her chest wall. Dizzy spells with the room spinning. Nausea and dry heaving. Had been previously diagnosed with mast cell disorder and placed on a new medication (I wonder if this was anakinra? ). She was given Benadryl, Toradol, Zofran. She was instructed to come to the ER. Per medical record she has a past medical history of mast cell activation syndrome, liver disorder with slow metabolizer, right ovarian cyst, PTSD, tobacco use, PCOS, gastrojejunal ulcer, oral herpes, intermittent asthma, elevated BMI, GERD, history of ESBL infections, hidradenitis suppurativa, fatigue, elevated sed rate, impaired fasting glucose. Current med list from printed records includes Anakinra Canakinumab Diclofenac gel Benadryl Vitamin D2 Pepcid Imodium lorazepam 0.25 mg b.i.d. p.r.n. Zofran Tramadol She also mentions that over the past couple of years she has had abdominal surgery for some sort of ovarian mass. She has also developed some sort of a mass in her left axilla that was apparently not malignant. She has also had multiple skin sores and mouth sores. It also sounds like she has had intermittent headaches for the past several months but her current headache is worse. No recent fall or head trauma. No tinnitus. No fever. No focal numbness or weakness in her arms or legs. Related Data Allergies Allergy/AdvReac Type Severity Reaction Status Date / Time clindamycin Allergy vomiting Verified 02/13/25 23:18 doxycycline Allergy Vomiting Verified 02/13/25 23:18 metoclopramide (From Reglan) Allergy achothesia Verified 02/13/25 23:18 prochlorperazine Allergy achothesia Verified 02/13/25 23:18 Sulfa (Sulfonamide Allergy Blister Verified 02/13/25 23:18 Antibiotics) methoprednisone Allergy Uncoded 02/13/25 23:18 Exam Narrative: Exam Narrative: Constitutional: Appears well-developed and well-nourished. Alert. Conversant and polite . Difficult to get a clear history from her. She has so many different symptoms and illnesses. She has been is a lot of time describing her previous surgery for her pelvic mass and her multiple evaluations for previous problems. It is a little bit difficult to get a clear history of what happened with her current illness (specifically the vertigo that started Wednesday and right-sided headache).. HENT: Head: Atraumatic. No depressed skull fracture, Raccoon Eyes, Castro's sign, or hemotympanum. Face normal. TMs normal Nose: Nose normal. Mouth/Throat: Oral mucosa is clear and moist. no trismus. Pharynx normal. Tonsils symmetric. No tonsillar enlargement, erythema, or exudate. Eyes: Conjunctivae normal. EOM normal. Pupils equal, round, and reactive to light. No scleral icterus. Neck: Normal range of motion. Neck supple. No tracheal deviation present. Cardiovascular: Normal rate, regular rhythm. No gallop. No friction rub. No murmur heard. Symmetric radial artery pulses Pulmonary/Chest: Effort normal. No stridor. No respiratory distress. No wheezes. No rales. No rhonchi . No tenderness. Abdominal: Soft. Bowel sounds normal. No distension. No mass. No tenderness. No rebound. No guarding. Musculoskeletal: RUE: Normal range of motion. No tenderness. No deformity LUE: Normal range of motion. No tenderness. No deformity RLE: Normal range of motion. No edema. No tenderness. No deformity LLE: Normal range of motion. No edema. No tenderness. No deformity Lymph: No cervical adenopathy. Neurological: Mental status normal. Attention normal. Alert and oriented x3. GCS 15. Memory normal. Speech fluent. Cognition normal, but she says multiple times that she just can not concentrate because she has a bad headache.. Cranial Nerves intact II-XII except I did not formally test gag or visual acuity. EOMI. Palate elevates symmetrically and tongue protrudes in the midline. Strength: 5/5 trapezius on the right and left 5/5 deltoid on the right and left 5/5 biceps on the right and left 5/5 triceps on the right and left 5/5 clerical secretary on the right and left 5/5 thumb opposition on the right and left 5/5 finger abduction on the right and left 5/5 hip flexors (L3) on the right and left 5/5 quadriceps (L4) on the right and left 5/5 tibialis anterior on the right and left 5/5 EHL (L5) on the right and left 5/5 gastrocnemius (S1) on the right and left 5/5 hamstring on the right and left Sensation intact to light touch in both upper extremities (C4-T1) Sensation intact to light touch in Both lower extremities (L4-S1). Finger to nose and coordination normal. Gait normal. Skin: Skin is warm and dry. No rash noted. No pallor. Normal capillary refill. Psychiatric: Uncomfortable and somewhat anxious affect. Const: Vital Signs, click to edit/add: Vital Signs - 24 hr 02/13/25 20:31 02/13/25 20:48 02/13/25 21:00 Temperature 98.0 F Pulse Rate 71 63 Pulse Rate [Pulse Oximeter] 63 Respiratory Rate 18 Blood Pressure Blood Pressure [Ri ght Upper Arm] 152/105 H Pulse Oximetry 97 95 97 Oxygen Delivery Me thod Room Air 02/13/25 21:15 02/13/25 21:30 02/13/25 23:11 Temperature Pulse Rate 65 66 64 Pulse Rate [Pulse Oximeter] Respiratory Rate Blood Pressure Blood Pressure [Ri ght Upper Arm] Pulse Oximetry 92 92 95 Oxygen Delivery Me thod 02/13/25 23:13 02/13/25 23:15 02/13/25 23:30 Temperature Pulse Rate 77 77 78 Pulse Rate [Pulse Oximeter] Respiratory Rate 16 Blood Pressure 150/64 H Blood Pressure [Ri ght Upper Arm] Pulse Oximetry 93 96 95 Oxygen Delivery Me thod Room Air Course Course ED Course: Patient was triaged and ER room 5. A history and physical exam performed. Patient notes that she has a condition where she has a slow metabolizer from her liver and cannot be given medications which metabolize hepatic She has allergies to Compazine and Reglan. She had already received Toradol, Zofran, Benadryl, at the urgent care and they were not effective in treating her headache or vertigo. Discussed options with the patient's to try to treat her headache. We discussed that we could try Zyprexa or possibly droperidol. Both of these are at least partially undergo hepatic metabolism. She agreed to try the Zyprexa. I ordered a low dose, 5 mg to try to avoid any side effects or illness sedation. Also will obtain CT imaging to ensure there is no acute finding her brain such as acute hemorrhage, cerebral edema. Also will get CTA to look for possible vertebral artery dissection, vertebral insufficiency, aneurysm, or vasculitis as a cause for her headache and neck pain. Reevaluation(s) Reevaluation #1: Recheck- out of bed side. He wanted to remind the nurses that she has a slow liver metabolizer and should not be given meds that undergo hepatic metabolism. Discussed with the patient and that there is some hepatic metabolism for Zyprexa. However almost all of the typical medications we would use treat pain and headache undergo some degree of hepatic metabolism. They agree to try the Zyprexa. Reevaluation #2: Recheck-patient says her headache is still there. We discussed further medications but she is declining. She says she would rather just go home and try to sleep tonight. She is also requesting that we removed the IV from her left hand (that had been started at urgent care). We had to start a 2nd IV in her right AC for her CT scans. Although she had been reporting vertigo at home, nurses note that she is ambulating steadily in the hallway without ataxia or staggering. I discussed with the patient and her . They agree to stay at least is long enough to get her CT imaging results back. Subsequently CT imaging came back normal per radiology. Vital Signs Vital signs: Initial Vital Signs Temperature 98.0 F 02/13/25 20:31 Temperature Source Temporal Artery Scan 02/13/25 20:31 Pulse Rate 63 02/13/25 20:31 Respiratory Rate 18 02/13/25 20:31 Blood Pressure 152/105 H 02/13/25 20:31 Blood Pressure Mean 120 H 02/13/25 20:31 Pulse Oximetry 97 02/13/25 20:31 Oxygen Delivery Method Room Air 02/13/25 20:31 Vital Signs Temperature 98.0 F 02/13/25 20:31 Pulse Rate 63 02/13/25 20:31 Respiratory Rate 18 02/13/25 20:31 Blood Pressure 152/105 H 02/13/25 20:31 Pulse Oximetry 97 02/13/25 20:31 Oxygen Delivery Method Room Air 02/13/25 20:31 Temperature 98.0 F 02/13/25 20:31 Pulse Rate 78 02/13/25 23:30 Respiratory Rate 16 02/13/25 23:13 Blood Pressure 150/64 H 02/13/25 23:13 Pulse Oximetry 95 02/13/25 23:30 Oxygen Delivery Method Room Air 02/13/25 23:13 Medications Administered Medications: Discontinued Medications Generic Name Dose Route Start Last Admin Trade Name Freq PRN Reason Stop Dose Admin Sodium Chloride 1,000 mls @ 1,000 mls/hr 02/13/25 22:30 02/14/25 00:20 0.9 % Sodium Chloride 1000 Ml IV 02/13/25 23:29 Infused .Q1H JANE Infusion Olanzapine 5 mg 02/13/25 22:20 02/13/25 23:11 Olanzapine 5 Mg/Ml Inj IVP 02/13/25 22:21 5 mg ONCE ONE Administration Medical Decision Making MDM Narrative Medical decision making narrative: 50-year-old female with a very complex past medical history including some sort of autoimmune disease or mast cell activation. She presents to the ER today with symptoms of bad right-sided headache associated with vertigo and nausea and vomiting. Concern here is for potential progression of her underlying illness or complication of her recent medication (anakinra). She is not febrile, tachycardic, or hypotensive to suggest infection. She is not really having neck pain and has no neck stiffness to suggest meningitis. Given the patient's vertigo and reported ataxia at home we were concerned about possible vascular abnormalities. CT angiogram was obtained and is normal. Noncontrast head CT is also negative for any sign of intracranial hemorrhage, cerebral edema, hydrocephalus, or obvious mass. Discussed with the patient and her that MR imaging would be more sensitive to look for subtle infarct, demyelination, and other potential causes for her vertigo. Also discussed that MR imaging is not available here in our ER tonight. In terms of treating her headache, we were only marginally successful. She is requesting discharge at this point despite offer of additional medications. Complicating her treatment is that she does have medication allergies and is a slow hepatic metabolizer so would be intolerant of many typical medications that we might use. She did receive a 5 mg dose of Zyprexa and seems to be tolerating it well so far. No signs of allergic reaction or unexpected sedation or side effects. At this point she is requesting discharge. We discussed the differential in question and further workup. Patient and her agree that she would like to go. At this point she is not holdable here in the ER. Would recommend close outpatient follow-up with her primary care provider or her specialist at [facility] tomorrow. Precautions for return to the ER reviewed. Imaging Data CT scan - head: Attestation: I have reviewed the pertinent imaging results. Radiologist's impression: IMPRESSION: No evidence of an acute intracranial abnormality. CTA Head and Neck: Attestation: I have reviewed the pertinent imaging results. Radiologist's impression: Preliminary Report: Preliminary Impression: CTA Neck: No evidence of dissection or significant stenosis. CTA Brain: No large vessel occlusion, flow limiting stenosis, or large aneurysm. Discharge Plan Discharge Clinical Impression: Headache, Vertigo Patient Disposition: Home, Self-Care Condition: Stable Instructions: Vertigo (DC), Acute Headache (DC) Additional Instructions: As we discussed, we are concerned about your headache. Please follow-up with your doctors at [facility] tomorrow for a recheck. Good news, so for the CT scan of your brain is normal and the CT scan of the blood vessels going through your neck and feeding the base of your brain also looked normal. We do not see any sign of blocked blood vessels, torn blood vessels, inflamed blood vessels. No sign of bleeding in your brain. No swelling in your brain. However CT scan cannot show all problems. Please recheck with her doctor tomorrow. You may need a brain MRI for further evaluation. If you get worse or have any other concerns, please return to the ER right away to be rechecked. Follow Up/Referrals: Provider,Not a Local [Primary Care Provider, Family Practice] Stand Alone Forms: [facility] Info Instructions
--- NOTE | 2025-02-13 22:20 | CT_ITS ---
Patient: GRACIELA HANLEY Facility:?[facility] Patient ID:?[id number] Site Patient ID:?[id number]. Site :?[id number] Study:?CT-Head Angio 95CC ISOVUE 370 NONACUTE-02/13/2025 11:17:04 PM Ordering Physician:?Mason Schumacher Final Report: INDICATION: Right-sided headache, vertigo. TECHNIQUE: CTA head using intravenous contrast with bolus tracking, 3D angiographic rendering using maximum intensity projection (MIP) and images permanently archived. CTA neck using intravenous contrast with bolus tracking, 3D angiographic rendering using maximum intensity projection (MIP) and images permanently archived. FINDINGS: CTA head: There is normal opacification of the intracranial vasculature. There is no large vessel occlusion or significant intracranial stenosis. No aneurysm is identified. CTA neck: There is no significant carotid artery stenosis or dissection. There is no significant vertebral artery stenosis or dissection. IMPRESSION: Unremarkable head CTA. Unremarkable neck CTA. Please note that all CT scans at this facility use dose modulation, iterative reconstruction, and/or weight-based dosing when appropriate to reduce radiation dose to as low as reasonably achievable. Dictated by Reynaldo Fontenot MD @ 02/14/2025 8:30:03 AM Signed by:?Reynaldo Fontenot MD @02/14/2025 8:30:03 AM (Electronic Signature)
--- NOTE | 2025-02-13 22:21 | CRLHL7_ITS ---
For Patients: As a result of the Century Cures Act, medical imaging exams and procedure reports are released immediately into your electronic medical record. You may view this report before your referring provider. If you have questions, please contact your health care provider. INDICATION: Headache, right-sided, vertigo. TECHNIQUE: CT head without contrast. COMPARISON: None. FINDINGS: Brain parenchyma, CSF spaces, and extra-axial spaces: The parish-white differentiation is normal. No sign of mass, hemorrhage, or midline shift. No hydrocephalus. No extra-axial fluid collection. Skull base and calvarium: The visualized paranasal sinuses demonstrate no acute or significant findings. The mastoid air cells are clear. The visualized orbits are grossly unremarkable. No skull fracture. IMPRESSION: No evidence of an acute intracranial abnormality. Please note that all CT scans at this facility use dose modulation, iterative reconstruction, and/or weight-based dosing when appropriate to reduce radiation dose to as low as reasonably achievable. Dictated by Endy Burroughs MD @ 02/13/2025 11:53:35 PM (Electronically Signed)
--- OUTSIDE RECORDS SUMMARY | 2025-02-13 22:30 | XMS_ITS | Encounter Summary ---
Author Organization [facility] [employer] Address [address] [place] [address] Care Team Providers Care Taproom Attendant Name Role Phone Annalee Lerma Saida MIMS, PROFESSOR OF FINANCE Primary Care Provider Encounter Details Date Type Department Care Team (Late st Contact Info) Description 03/29/2012 [facility] [address] [place] [id number] Jack Jenkins MD [address] [place] [address] [id number] FMLA Social History Tobacco Use Types Packs/Day Years Used Date Smoking Tobacco: Former Cigarettes 1.5 10 0 06/14/1987 - 06/14/1997 Smokeless Tobacco: Never Alcohol Use Standard Drinks/Week Comments Yes 0 (1 standard drink = 0.6 oz pur e alcohol) twice a year Comments No Sex and Gender Information Value Date Recorded Sex Assigned at Female 06/18/2022 1:13 PM MANAGER CALL Legal Sex Female 7:25 AM CDT Gender Identity Not on file Sexual Orientation Not on file 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 [address] Nanda Ritter, PhD, LP [address] [place] [address] 03/08/2025 4:00 PM CDT Phone Visit [facility] [address] [place] [address] Bertrand Apple MD [address] [place] [address] 03/19/2025 8:00 AM CDT [facility] [address] [facility] [place] [address] Nanda Ritter, PhD, LP [facility] [place] [address] 04/02/2025 8:00 AM CDT Telemedicine [facility] [address] [place] [address] Nanda Ritter, PhD, LP [facility] [place] [address] 04/16/2025 8:00 AM MANAGER CALL Telemedicine [facility] [address] [place] [address] Nanda Ritter, PhD, LP [address] [place] [address] 04/30/2025 8:00 AM MANAGER CALL Telemedicine [facility] [address] [facility] [place] [address] Nanda Ritter, PhD, LP [address] [place] [address] 05/14/2025 8:00 AM MANAGER CALL Telemedicine [facility] [address] [facility] [place] [address] Nanda Ritter, PhD, LP [address] [place] [address] 05/28/2025 8:00 AM MANAGER CALL Telemedicine [facility] [address] [facility] [place] [address] Nanda Ritter, PhD, LP [address] [place] [id number] documented as of this encounter Visit Diagnoses Not on filedocumented in this encounter Additional Health Concerns Infection Onset Date Last Indicated Resolved Time ESBL - Contact (retired) Comment:Urine 02/20/14 03/06/2014 03/06/2014 01/13/2018 3:22 PM CDT MRSA Comment:10/01/2017 from urgency room in [facility] absess 10/11/2018 10/11/2018 C-Diff 08/01/2024 08/01/2024 08/11/2024 3:18 AM MANAGER CALL documented as of this encounter Care Teams Taproom Attendant Relationship Specialty Start Date End Date Annalee Lerma, [employer]OLITAN EDITOR, PROFESSOR OF FINANCE [id number] [place] [facility] [id number] PCP - General Nurse Practitioner 04/12/24 documented as of this encounter
--- OUTSIDE RECORDS SUMMARY | 2025-02-13 22:30 | XMS_ITS | Encounter Summary ---
Author Organization [employer] Address [address] [place] [address] Care Team Providers Care Chlorination Operator Name Role Phone Annalee Lerma Saida MIMS, LINUX SYSTEM ENGINEER Primary Care Provider Encounter Details Date Type Department Care Team (Late st Contact Info) Description 12/28/2012 Emergency Room External to [facility] IN THROAT Social History Tobacco Use Types Packs/Day Years Used Date Smoking Tobacco: Former Cigarettes 1.5 10 0 06/14/1987 - 06/14/1997 Smokeless Tobacco: Never Alcohol Use Standard Drinks/Week Comments Yes 0 (1 standard drink = 0.6 oz pur e alcohol) twice a year Comments No Sex and Gender Information Value Date Recorded Sex Assigned at Female 06/18/2022 1:13 PM FOOD PRODUCTION WORKER Legal Sex Female 7:25 AM CDT Gender Identity Not on file Sexual Orientation Not on file 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 [address] Nanda Ritter, PhD, LP [address] [place] [address] 03/08/2025 4:00 PM CDT Phone Visit [facility] [address] [place] [address] Bertrand Apple MD [address] [place] [address] 03/19/2025 8:00 AM CDT Telemedicine [facility] Pain Management [address] [facility] [place] [address] Nanda Ritter, PhD, LP 295 [place] [address] 04/02/2025 8:00 AM CDT Telemedicine [facility] Pain Management [address] [facility] [place] [address] Nanda Ritter, PhD, LP [address] [place] [address] 04/16/2025 8:00 AM FOOD PRODUCTION WORKER Telemedicine [facility] Pain Management [address] [place] [address] Nanda Ritter, PhD, LP [address] [place] [address] 04/30/2025 8:00 AM FOOD PRODUCTION WORKER Telemedicine [facility] Pain Management [address] [place] [address] Nanda Ritter, PhD, LP [address] [place] [address] 05/14/2025 8:00 AM FOOD PRODUCTION WORKER Telemedicine [facility] Pain Management [address] [facility] [place] [phone] Nanda Ritter, PhD, LP [address] [facility] [place] [address] 05/28/2025 8:00 AM FOOD PRODUCTION WORKER Telemedicine [facility] Pain Management 295 [facility] [place] [phone] Nanda Ritter, PhD, LP [address] [facility] [place], [place] [phone] documented as of this encounter Visit Diagnoses Not on filedocumented in this encounter Additional Health Concerns Infection Onset Date Last Indicated Resolved Time ESBL - Contact (retired) Comment:Urine 02/20/14 03/06/2014 03/06/2014 01/13/2018 3:22 PM CDT MRSA Comment:10/01/2017 from urgency room in RLQ absess 10/11/2018 10/11/2018 C-Diff 08/01/2024 08/01/2024 08/11/2024 3:18 AM FOOD PRODUCTION WORKER documented as of this encounter Care Teams Chlorination Operator Relationship Specialty Start Date End Date Annalee Lerma APRN, LINUX SYSTEM ENGINEER [address] [place] [phone] PCP - General Nurse Practitioner 04/12/24 documented as of this encounter
--- OUTSIDE RECORDS SUMMARY | 2025-02-13 22:30 | XMS_ITS | Encounter Summary ---
Author Organization [facility] Address [address] [place] [address] Care Team Providers Care Golf Club Facer Name Role Phone Annalee Lerma Saida MIMS, SCAFFOLD SETTER Primary Care Provider Encounter Details Date Type Department Care Team (Late st Contact Info) Description 04/20/2012 [facility] [address] [facility] [address] [place] [address] Jack Jenkins MD [address] [place] [id number] RESTRICTIONS FORM Social History Tobacco Use Types Packs/Day Years Used Date Smoking Tobacco: Former Cigarettes 1.5 10 0 06/14/1987 - 06/14/1997 Smokeless Tobacco: Never Alcohol Use Standard Drinks/Week Comments Yes 0 (1 standard drink = 0.6 oz pur e alcohol) twice a year Comments No Sex and Gender Information Value Date Recorded Sex Assigned at Female 06/18/2022 1:13 PM PLATE WORKER HELPER Legal Sex Female 7:25 AM CDT Gender Identity Not on file Sexual Orientation Not on file 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 [address] Nanda Ritter, PhD, LP [facility] [place] [address] 03/08/2025 4:00 PM CDT Phone Visit [facility] [address] [place] [address] Bertrand Apple MD [address] [place] [address] 03/19/2025 8:00 AM CDT Telemedicine [facility] Pain Management [address] [facility] [place] [address] Nanda Ritter, PhD, LP [address] [place] [address] 04/02/2025 8:00 AM CDT Telemedicine [facility] Pain Management [address] [facility] [place] [address] Nanda Ritter, PhD, LP [address] [place] [address] 04/16/2025 8:00 AM PLATE WORKER HELPER Telemedicine [facility] Pain Management [address] [facility] [place] [address] Nanda Ritter, PhD, LP [address] [place] [address] 04/30/2025 8:00 AM PLATE WORKER HELPER Telemedicine [facility] Pain Management [address] [facility] [place] [address] Nanda Ritter, PhD, LP [address] [place] [address] 05/14/2025 8:00 AM PLATE WORKER HELPER Telemedicine [facility] Pain Management [address] [facility] [place] [address] Nanda Ritter, PhD, LP [address] [place] [address] 05/28/2025 8:00 AM PLATE WORKER HELPER Telemedicine [facility] Pain Management 295 [facility] [place] [address] Nanda Ritter, PhD, LP [address] [place] [address] documented as of this encounter Visit Diagnoses Not on filedocumented in this encounter Additional Health Concerns Infection Onset Date Last Indicated Resolved Time ESBL - Contact (retired) Comment:Urine 02/20/14 03/06/2014 03/06/2014 01/13/2018 3:22 PM CDT MRSA Comment:10/01/2017 from urgency room in [facility] absess 10/11/2018 10/11/2018 C-Diff 08/01/2024 08/01/2024 08/11/2024 3:18 AM PLATE WORKER HELPER documented as of this encounter Care Teams Golf Club Facer Relationship Specialty Start Date End Date Annalee Lerma, STOCK BLENDER, SCAFFOLD SETTER [address] [place] [phone] PCP - General Nurse Practitioner 04/12/24 documented as of this encounter
--- OUTSIDE RECORDS SUMMARY | 2025-02-13 22:30 | XMS_ITS | Encounter Summary ---
Author Organization [employer] Address [address] [place] [address] Care Team Providers Care Supervisor Coffee Name Role Phone DemiYannick terrymarielena Cintron APRN, WILLIAM Primary Care Provider Encounter Details Date Type Department Care Team (Late st Contact Info) Description 10/12/2018 Consent for Procedure/Treatme [facility] [address] [place], [place] [id number] Provider, Not On File [address] [place] [address] CONSENT FOR SURGERY/INVASIVE PROCEDURE Social History Tobacco Use Types Packs/Day Years Used Date Smoking Tobacco: Former Cigarettes Q uit: 1986 Smokeless Tobacco: Never Alcohol Use Standard Drinks/Week Comments Never 0 (1 standard drink = 0.6 oz pur e alcohol) AUDIT-C Answer Date Recorded Frequency of Alcohol Consumption Never 10/10/2018 Average Number of Drinks Not on file 019 Frequency of Binge Drinking Not on file 09/13 Comments No Sex and Gender Information Value Date Recorded Sex Assigned at Female 06/18/2022 1:13 PM AIRWAYS CONTROL SPECIALIST Legal Sex Female 7:25 AM CDT Gender Identity Not on file Sexual Orientation Not on file 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 [address] Nanda Ritter, PhD, LP 295 [place] [address] 03/08/2025 4:00 PM CDT Phone Visit [facility] [address] [place] [address] Bertrand Apple MD [address] [place] [address] 03/19/2025 8:00 AM CDT [facility] Pain Management [address] [place] [address] Nanda Ritter, PhD, LP 295 [place] [address] 04/02/2025 8:00 AM CDT [facility] Pain Management [address] [facility] [place] [address] Nanda Ritter, PhD, LP [address] [place] [address] 04/16/2025 8:00 AM AIRWAYS CONTROL SPECIALIST Telemedicine [facility] Pain Management [address] [place] [address] Nanda Ritter, PhD, LP [address] [place] [address] 04/30/2025 8:00 AM AIRWAYS CONTROL SPECIALIST [facility] Pain Management [address] [facility] [place] [address] Nanda Ritter, PhD, LP [address] [facility] [place] [address] 05/14/2025 8:00 AM AIRWAYS CONTROL SPECIALIST Telemedicine [facility] Pain Management [address] [facility] [place] [address] Nanda Ritter, PhD, LP [address] [facility] [place] [address] 05/28/2025 8:00 AM AIRWAYS CONTROL SPECIALIST Telemedicine [facility] Pain Management 295 [facility]. [place] [address] Nanda Ritter, PhD, LP 295 [facility] [place] [address] documented as of this encounter Visit Diagnoses Not on filedocumented in this encounter Additional Health Concerns Infection Onset Date Last Indicated Resolved Time MRSA Comment:10/01/2017 from urgency room in RL absess 10/11/2018 10/11/2018 C-Diff 08/01/2024 08/01/2024 08/11/2024 3:18 AM AIRWAYS CONTROL SPECIALIST documented as of this encounter Care Teams Supervisor Coffee Relationship Specialty Start Date End Date Annalee Lerma APRN, OPERATIONS ENGINEER [address] [place] [place] [phone] PCP - General Nurse Practitioner 04/12/24 documented as of this encounter
--- OUTSIDE RECORDS SUMMARY | 2025-02-13 22:30 | XMS_ITS | Encounter Summary ---
Author Organization [employer] Address [address] [place] [address] Care Team Providers Care Wool Grader Name Role Phone DemiYannick terrymarielena Cintron APRN, SIZE TESTER Primary Care Provider Encounter Details Date Type Department Care Team (Late st Contact Info) Description 10/12/2018 Consent for Procedure/Treatme [facility] Day [facility] [address] [place] [address] Provider, Not On File [address] [place] [address] CONSENT FOR ANESTHESIA Social History Tobacco Use Types Packs/Day Years [...] Sex Assigned at Female 06/18/2022 1:13 PM SPEEDER WORKER Legal Sex Female 7:25 AM CDT Gender Identity Not on file Sexual Orientation Not on file 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 [address] Nanda Ritter, PhD, LP 295 [place] [address] 03/08/2025 4:00 PM CDT Phone Visit [facility] [address] [place] [address] Bertrand Apple MD [address] [place] [address] 03/19/2025 8:00 AM CDT Telemedicine [facility] Pain Management [address] [facility] [place] [address] Nanda Ritter, PhD, LP [address] [place] [address] 04/02/2025 8:00 AM CDT [facility] [address] [facility] [place] [address] Nanda Ritter, PhD, LP [address] [place] [address] 04/16/2025 8:00 AM SPEEDER WORKER Telemedicine [facility] Pain Management [address] [facility] [place] [address] Nanda Ritter, PhD, LP [address] [place] [address] 04/30/2025 8:00 AM SPEEDER WORKER Telemedicine [facility] Pain Management [address] [facility] [place] [address] Nanda Ritter, PhD, LP [address] [facility] [place] [address] 05/14/2025 8:00 AM SPEEDER WORKER Telemedicine [facility] Pain Management [address] [facility] [place] [address] Nanda Ritter, PhD, LP [address] [facility] [place] [address] 05/28/2025 8:00 AM SPEEDER WORKER Telemedicine [facility] Pain Management [address] [facility] [place] [address] Nanda Ritter, PhD, LP [address] [facility] [place] [address] documented as of this encounter Visit Diagnoses Not on filedocumented in this encounter Additional Health Concerns Infection Onset Date Last Indicated Resolved Time MRSA Comment:10/01/2017 from urgency room in RLQ absess 10/11/2018 10/11/2018 C-Diff 08/01/2024 08/01/2024 08/11/2024 3:18 AM SPEEDER WORKER documented as of this encounter Care Teams Wool Grader Relationship Specialty Start Date End Date Annalee Lerma APRN, SIZE TESTER [address] [place] [phone] PCP - General Nurse Practitioner 04/12/24 documented as of this encounter
--- OUTSIDE RECORDS SUMMARY | 2025-02-13 22:30 | XMS_ITS | Encounter Summary ---
Author Organization [employer] Address [address] [place] [address] Care Team Providers Care Cardiopulmonary Physical Therapist Name Role Phone System, Provider Not In Primary Care Provider Un available Dione Leyva MD Unavailable [phone] Encounter Details Date Type Department Care Team (Late st Contact Info) Description 03/06/2020 Telephone [facility] [address] [place] [address] Isaura Ge, RN Social History Tobacco Use Types Packs/Day Years Used Date Smoking Tobacco: Former Cigarettes Q uit: 07/20/1996 Alcohol Use Standard Drinks/Week Comments No 0 (1 standard drink = 0.6 oz pur e alcohol) Comments No Sex and Gender Information Value Date Recorded Sex Assigned at Not on file Legal Sex Female 2:20 PM CDT Gender Identity Not on file Sexual Orientation Not on file documented as of this encounter Plan of Treatment Not on file documented as of this encounter Visit Diagnoses Not on filedocumented in this encounter Care Teams Cardiopulmonary Physical Therapist Relationship Specialty Start Date End Date System, Provider Not In PCP - General Clinic 08/12/22 Dione Leyva MD [facility] [address] [place] [address] drop hammer setter up 08/13/23 documented as of this encounter
--- OUTSIDE RECORDS SUMMARY | 2025-02-13 22:30 | XMS_ITS | Encounter Summary ---
Author Organization [employer] Address [address] [place] [address] Care Team Providers Care Fur Liner Name Role Phone Annalee Lerma Saida MIMS, CHIP FRIER Primary Care Provider Encounter Details Date Type Department Care Team (Late st Contact Info) Description 06/01/2012 Consent for Procedure/Treatme nt [facility] Department INFORMED CONSENT RECORD Social History Tobacco Use Types Packs/Day Years Used Date Smoking Tobacco: Former Cigarettes 1.5 10 0 06/14/1987 - 06/14/1997 Smokeless Tobacco: Never Alcohol Use Standard Drinks/Week Comments Yes 0 (1 standard drink = 0.6 oz pur e alcohol) twice a year Comments No Sex and Gender Information Value Date Recorded Sex Assigned at Female 06/18/2022 1:13 PM INTERNET MERCHANT Legal Sex Female 7:25 AM CDT Gender Identity Not on file Sexual Orientation Not on file 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 [address] Nanda Ritter, PhD, LP 295 [place] [address] 03/08/2025 4:00 PM CDT Phone Visit [facility] [address] [place] [address] Bertrand Apple MD [address] [place] [address] 03/19/2025 8:00 AM CDT Telemedicine [facility] Pain Management [address] [facility] [place] [address] Nanda Ritter, PhD, LP 295 [place] [address] 04/02/2025 8:00 AM CDT Telemedicine [facility] Pain Management [address] [facility] [place] [address] Nanda Ritter, PhD, LP [address] [place] [address] 04/16/2025 8:00 AM INTERNET MERCHANT Telemedicine [facility] Pain Management [address] [facility] [place] [address] Nanda Ritter, PhD, LP [address] [place] [address] 04/30/2025 8:00 AM INTERNET MERCHANT Telemedicine [facility] Pain Management [address] [facility] [place] [address] Nanda Ritter, PhD, LP [address] [place] [address] 05/14/2025 8:00 AM INTERNET MERCHANT Telemedicine [facility] Pain Management [address] [facility] [place] [phone] Nanda Ritter, PhD, LP [address] [facility] [place] [address] 05/28/2025 8:00 AM INTERNET MERCHANT Telemedicine [facility] Pain Management [address] [facility] [place] [phone] Nadna Ritter, PhD, LP [address] [place], [place] [phone] documented as of this encounter Visit Diagnoses Not on filedocumented in this encounter Additional Health Concerns Infection Onset Date Last Indicated Resolved Time ESBL - Contact (retired) Comment:Urine 02/20/14 03/06/2014 03/06/2014 01/13/2018 3:22 PM CDT MRSA Comment:10/01/2017 from urgency room in RLQ absess 10/11/2018 10/11/2018 C-Diff 08/01/2024 08/01/2024 08/11/2024 3:18 AM INTERNET MERCHANT documented as of this encounter Care Teams Fur Liner Relationship Specialty Start Date End Date Annalee Lerma APRN, CHIP FRIER [address] [place] [phone] PCP - General Nurse Practitioner 04/12/24 documented as of this encounter
--- OUTSIDE RECORDS SUMMARY | 2025-02-13 22:31 | XMS_ITS | Encounter Summary ---
Author Organization [facility] Address [address] [place] [address] Care Team Providers Care Armed Security Officer Name Role Phone Annalee Lerma Saida MIMS, SEISMIC PLOTTER Primary Care Provider Encounter Details Date Type Department Care Team (Late st Contact Info) Description 09/19/2014 Consent for Procedure/Treatme nt [facility] Department INFORMED CONSENT RECORD Social History Tobacco Use Types Packs/Day Years Used Date Smoking Tobacco: Former Cigarettes Q uit: 06/14/1987 Smokeless Tobacco: Never Alcohol Use Standard Drinks/Week Comments No 0 (1 standard drink = 0.6 oz pur e alcohol) Comments No Sex and Gender Information Value Date Recorded Sex Assigned at Female 06/18/2022 1:13 PM LEGAL CASHIER Legal Sex Female 7:25 AM CDT Gender Identity Not on file Sexual Orientation Not on file 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 [place], [place] [phone] Nanda Ritter, PhD, LP 295 [place] [address] 03/08/2025 4:00 PM CDT Phone Visit [facility] [address] [place] [address] Bertrand Apple MD [address] [place] [address] 03/19/2025 8:00 AM CDT Telemedicine [facility] Pain Management [address] [facility] [place] [address] Nanda Ritter, PhD, LP 295 [place] [address] 04/02/2025 8:00 AM CDT Telemedicine [facility] Pain Management [address] [facility] [place] [address] Nanda Ritter, PhD, LP [address] [place] [address] 04/16/2025 8:00 AM LEGAL CASHIER Telemedicine [facility] Pain Management [address] [facility] [place] [address] Nanda Ritter, PhD, LP [address] [place] [address] 04/30/2025 8:00 AM LEGAL CASHIER Telemedicine [facility] Pain Management [address] [facility] [place] [address] Nanda Ritter, PhD, LP [address] [place] [address] 05/14/2025 8:00 AM LEGAL CASHIER Telemedicine [facility] Pain Management [address] [facility] [place] [address] Nanda Ritter, PhD, LP [address] [facility] [place] [address] 05/28/2025 8:00 AM LEGAL CASHIER Telemedicine [facility] Pain Management [address] [facility]. [place] [address] Nanda Ritter, PhD, LP [address] [place], [place] [phone] documented as of this encounter Visit Diagnoses Not on filedocumented in this encounter Additional Health Concerns Infection Onset Date Last Indicated Resolved Time ESBL - Contact (retired) Comment:Urine 02/20/14 03/06/2014 03/06/2014 01/13/2018 3:22 PM CDT MRSA Comment:10/01/2017 from urgency room in [facility] absess 10/11/2018 10/11/2018 C-Diff 08/01/2024 08/01/2024 08/11/2024 3:18 AM LEGAL CASHIER documented as of this encounter Care Teams Armed Security Officer Relationship Specialty Start Date End Date Annalee Lerma, LIBRARIAN, SEISMIC PLOTTER [address] [place] [phone] PCP - General Nurse Practitioner 04/12/24 documented as of this encounter
--- OUTSIDE RECORDS SUMMARY | 2025-02-13 22:31 | XMS_ITS | Encounter Summary ---
Author Organization [facility] [employer] Address [address] [place] [address] Care Team Providers Care Varnish Inspector Name Role Phone Annalee Lerma Saida MIMS, SUPERVISOR CUTTING DEPARTMENT Primary Care Provider Encounter Details Date Type Department Care Team ([facility] Contact Info) Description 01/12/2018 Scanned History [facility] [address] [place] [address] Provider, Not On File [address] [place] [address] HH CONTRAST INJECTION ASSESSMENT Social History Tobacco Use Types Packs/Day Years Used Date Smoking Tobacco: Former Cigarettes Q uit: 06/14/1987 Smokeless Tobacco: Never Comments:Smoke every blue mo on Alcohol Use Standard Drinks/Week Comments Yes 0 (1 standard drink = 0.6 oz pur e alcohol) socially Comments No Sex and Gender Information Value Date Recorded Sex Assigned at Female 06/18/2022 1:13 PM CONSTRUCTION PROJECT COORDINATOR Legal Sex Female 7:25 AM CDT Gender Identity Not on file Sexual Orientation Not on file 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 [address] Nanda Ritter, PhD, LP [address] [place] [address] 03/08/2025 4:00 PM CDT Phone Visit [facility] [address] [place] [address] Bertrand Apple MD [address] [place] [address] 03/19/2025 8:00 AM CDT Telemedicine [facility] [address] [facility] [place] [address] Nanda Ritter, PhD, LP [address] [place] [address] 04/02/2025 8:00 AM CDT Telemedicine [facility] [address] [facility] [place] [address] Nanda Ritter, PhD, LP [address] [place] [address] 04/16/2025 8:00 AM CONSTRUCTION PROJECT COORDINATOR Telemedicine [facility] [address] [facility] [place] [address] Nanda Ritter, PhD, LP [address] [place] [address] 04/30/2025 8:00 AM CONSTRUCTION PROJECT COORDINATOR Telemedicine [facility] [address] [facility] [place] [address] Nanda Ritter, PhD, LP [address] [place] [address] 05/14/2025 8:00 AM CONSTRUCTION PROJECT COORDINATOR Telemedicine [facility] [address] [place] [address] Nanda Ritter, PhD, LP [address] [facility] [place] [address] 05/28/2025 8:00 AM CONSTRUCTION PROJECT COORDINATOR Telemedicine [facility] [address] [facility] [place] [address] Nanda Ritter, PhD, LP [address] [place] [address] documented as of this encounter Visit Diagnoses Not on filedocumented in this encounter Additional Health Concerns Infection Onset Date Last Indicated Resolved Time ESBL - Contact (retired) Comment:Urine 02/20/14 03/06/2014 03/06/2014 01/13/2018 3:22 PM CDT MRSA Comment:10/01/2017 from urgency room in RLQ absess 10/11/2018 10/11/2018 C-Diff 08/01/2024 08/01/2024 08/11/2024 3:18 AM CONSTRUCTION PROJECT COORDINATOR documented as of this encounter Care Teams Varnish Inspector Relationship Specialty Start Date End Date Annalee Lerma APRN, SUPERVISOR CUTTING DEPARTMENT [address] [place] [phone] PCP - General Nurse Practitioner 04/12/24 documented as of this encounter
--- OUTSIDE RECORDS SUMMARY | 2025-02-13 22:31 | XMS_ITS | Encounter Summary ---
Author Organization [facility] Address [address] [place] [address] Care Team Providers Care Journeyman Electrician Name Role Phone Annalee Lerma Kaykay MIMS, CONTROL TOWER RADIO OPERATOR Primary Care Provider Encounter Details Date Type Department Care Team (Latest Contact Info) Description [facility] [place] [address] [place] [address] Social History Tobacco Use Types Packs/Day Years Used Date Smoking Tobacco: Former Cigarettes Q uit: 1985 Smokeless Tobacco: Never Alcohol Use Standard Drinks/Week Comments Never 0 (1 standard drink = 0.6 oz pur e alcohol) Comments No Sex and Gender Information Value Date Recorded Sex Assigned at Female 06/18/2022 1:13 PM TAPE FASTENER MACHINE OPERATOR Legal Sex Female 7:25 AM CDT Gender Identity Not on file Sexual Orientation Not on file 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 Intrauterine at 18 weeks by dilatation and evacuation ultrasound. 2. Right lower quadrant pain. 3. Possible chorioamnionitis. DISCHARGE DIAGNOSES 1. Intrauterine at approximately 19 weeks' gestational age. 2. Depression, not otherwise specified. 3. CluCluster B psychiatric traits. PROCEDURES 1. Intravenous fluid hydration. 2. Intravenous antibiotic treatment with ampicillin and gentamicin. 3. Amniocentesis for cytogenetics and rule out chorioamnionitis. 4. Psychiatric consult to assess depression and history of suicidal ideation. 5. Social work consult secondary to patient's questions concerning paternity. COMPLICATIONS: None. HISTORY AND PHYSICAL: The patient is a 29-year-old, G2, para 1-0-0-1, who reportedly is 18 weeks' , admitted for evaluation and treatment of abdominal pain during . Patient initiated procedure for elective termination of her last week, signed all appropriate papers and, on 03/26/2004, had laminaria inserted into her cervix. She states that she is understood how the procedure was to be done. She then did internet research on where she saw pictures of fetuses that made her sick to her stomach and she couldn't proceed. Her MD sent her to the clinic where the laminaria were removed on 03/27/2004. She had onset of cramping and bleeding since removal of the laminaria. These symptoms became worse on the evening of 03/29/2004 and, by the a.m. of 03/30/2004, she had severe right lower quadrant pain, chills and nausea, and went to the ER at [facility] where she evaluated. She has also had watery discharge since 03/27/2004. Exam in the ER did not demonstrate rupture of membranes. Ultrasound showed normal fluid, and she had a low-grade temp and borderline white blood cell count. She was told she probably had an infection and should have the termination, but she refused. She was given Rocephin and a prescription for Zithromax which she has not yet filled. She continues with the right lower quadrant pain, chills, nausea and brown watery discharge and states that she wants an , but wants the baby delivered intact. PAST MEDICAL HISTORY: None. SURGICAL HISTORY: Breast reduction in 1997. PAST OB HISTORY: [id number] son delivered by . MEDICATIONS: None. ALLERGIES: SULFA GIVE HER BLISTERS IN HER MOUTH. ALSO, COMPAZINE. SOCIAL HISTORY: The patient lives with her 8-year-old son. Is from her for several years. PHYSICAL EXAM: Vital signs: Temp 99.4, pulse 107 and blood pressure of 1088/51. Abdomen: Is soft, nondistended. The upper abdomen is nontender to palpation. Gravid uterus at the umbilicus, -1. Uterus is moderately tender, right greater than left. LABS: Labs were pending at the time of this H&P. ASSESSMENT: A 29 year old who signed papers for elective termination of at 18 weeks by D&E, then after reviewing graphic pictures and having laminaria inserted decided not to proceed, now with evidence of chorioamnionitis. PLAN: Discussed with patient that staff would like to get laboratory evidence to confirm suspicion of chorioamnionitis; however, given the pain and low-grade temperature, the softest option for the patient may be emptying the uterus. However, the most efficient method for accomplishing this would be via dilation and evacuation. The patient refuses this procedure. Will reassess the patient's understanding of this procedure to determine the most reasonable approach. Also, in the interim, will start IV fluid hydration and IV ampicillin and gentamicin. HOSPITAL COURSE: The patient remained afebrile and her white blood cell count went from 9.2 to 6.6 during his hospitalization. She remained afebrile and her abdominal pain lessened. Ultrasound on 04/01/2004 showed heart tones of 145, anterior placenta and breech presentation with an ALBERTO of 13 cm. A psych consult was requested to assist the patient for depression and her history of suicidal ideation. The patient stated that she would consider suicide if she did not have her 8-year-old son. The patient was seen by the psychiatry service who diagnosed her with depression, NOS, and cluster B symptoms. Also, social work was consulted regarding questionable paternity of this fetus. Her pain was adequately controlled with Percocet. On hospital day #3, a maternal- medicine consult was conducted in the maternal- medicine clinic with Dr. Granda who performed an ultrasound and amniocentesis. This fluid was sent for cytogenetics and for testing to rule out chorioamnionitis. The quantitative glucose came back at 31, and there were no other signs of chorioamnionitis. The patient had remained afebrile, and her pain was adequately controlled with p.o. pain medications. Therefore, on hospital day #4, she was discharged to home in stable condition. She is asked to follow up at the [facility] in 1 week to institute care. She is discharged on a regular diet with activity as tolerated. She is asked to call for a temp greater than 101, vaginal bleeding greater than 1 pad per hour, severe abdominal pain or intractable nausea and vomiting. She is discharged on the following medications: Colace 100 mg p.o. b.i.d., vitamins 1 tab p.o. daily and Percocet 1 to 2 tabs p.o. q.4-6h. p.r.n. She was also given Phenergan to take 12.5 mg p.o. q.6h. p.r.n. nausea. tdm Dictated: 04/03/2004 15:37:59 Amaya Centeno MD Transcribed: 04/04/2004 09:54:18 Ruma Benoit MD Doc #: [id number] cc: Endy Jaramillo MD, Primary Ruma Benoit MD, Attending 1 Page 2 Patient Name: SUSY DE LOS SANTOS DISCHARGE SUMMARY CONFIDENTIAL MEDICAL RECORD [address] [id number] Page 1 Patient: SUSY DE LOS SANTOS Location: [facility]-DIS HPN: [id number] Admit Date: 03/31/2004 Date of : 1975 Discharge Date: 04/03/2004 DISCHARGE SUMMARY documented in this encounter Plan of Treatment Upcoming Encounters Date Type Department Care Team (Late st Contact Info) Description 02/26/2025 8:00 AM CDT Telemedicine [facility] [address] [facility] [place] [address] Nanda Ritter, PhD, LP [address] [place] [address] 03/08/2025 4:00 PM CDT Phone Visit [facility] [address] [place] [address] Bertrand Apple MD [address] [place] [address] 03/19/2025 8:00 AM CDT Telemedicine [facility] [address] [place] [address] Nanda Ritter, PhD, LP [address] [place] [address] 04/02/2025 8:00 AM CDT Telemedicine [facility] [address] [place] [address] Nanda Ritter, PhD, LP [address] [place] [address] 04/16/2025 8:00 AM TAPE FASTENER MACHINE OPERATOR Telemedicine [facility] [address] [place] [address] Nanda Ritter, PhD, LP [place] [address] 04/30/2025 8:00 AM TAPE FASTENER MACHINE OPERATOR Telemedicine [facility] [address] [place] [address] Nanda Ritter, PhD, LP [place] [address] 05/14/2025 8:00 AM TAPE FASTENER MACHINE OPERATOR Telemedicine [facility] [address] [place] [address] Nanda Ritter, PhD, LP [address] [place] [address] 05/28/2025 8:00 AM TAPE FASTENER MACHINE OPERATOR Telemedicine [facility] [address] [facility] [place] [address] Nanda Ritter, PhD, LP [address] [place] [address] documented as of this encounter Visit Diagnoses Not on filedocumented in this encounter Additional Health Concerns Infection Onset Date Last Indicated Resolved Time ESBL - Contact (retired) Comment:Urine 02/20/14 03/06/2014 03/06/2014 01/13/2018 3:22 PM CDT MRSA Comment:10/01/2017 from urgency room in RLQ absess 10/11/2018 10/11/2018 C-Diff 08/01/2024 08/01/2024 08/11/2024 3:18 AM TAPE FASTENER MACHINE OPERATOR documented as of this encounter Care Teams Journeyman Electrician Relationship Specialty Start Date End Date Annalee Lerma, COMPOUNDER HELPER, CONTROL TOWER RADIO OPERATOR [address] [place] [facility] [phone] PCP - General Nurse Practitioner 04/12/24 documented as of this encounter
--- OUTSIDE RECORDS SUMMARY | 2025-02-13 22:31 | XMS_ITS | Encounter Summary ---
Author Organization [facility] Address [address] [place] [address] Care Team Providers Care Binder Cutter Name Role Phone Annalee Lerma Saida MIMS, ROTARY ENGRAVER Primary Care Provider Encounter Details Date Type Department Care Team (Late Contact Info) Description 02/27/2014 Consent for Procedure/Treatme nt 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 [address] [place] [address] Nanda Ritter, PhD, LP [address] [place] [address] 03/08/2025 4:00 PM CDT Phone Visit [facility] [address] [place] [address] Bertrand Apple MD [address] [place] [address] 03/19/2025 8:00 AM CDT Telemedicine [facility] [address] [place] [address] Nanda Ritter, PhD, LP [address] [place] [address] 04/02/2025 8:00 AM CDT Telemedicine [facility] [address] [place] [place] [address] Nanda Ritter, PhD, LP [address] [place] [address] 04/16/2025 8:00 AM FIBERGLASSER Telemedicine [facility] [address] [place] [place] [address] Nanda Ritter, PhD, LP [address] [place] [address] 04/30/2025 8:00 AM FIBERGLASSER Telemedicine [facility] [address] [place] [place] [address] Nanda Ritter, PhD, LP [address] [place] [address] 05/14/2025 8:00 AM FIBERGLASSER Telemedicine [facility] [address] [place] [place] [address] Nanda Ritter, PhD, LP [address] [facility] [place] [address] 05/28/2025 8:00 AM FIBERGLASSER Telemedicine [facility] [address] [place] [address] Nanda Ritter, PhD, LP [address] [facility] [place] [address] documented as of this encounter Visit Diagnoses Not on filedocumented in this encounter Additional Health Concerns Infection Onset Date Last Indicated Resolved Time ESBL - Contact (retired) Comment:Urine 02/20/14 03/06/2014 03/06/2014 01/13/2018 3:22 PM CDT MRSA Comment:10/01/2017 from urgency room in [facility] absess 10/11/2018 10/11/2018 C-Diff 08/01/2024 08/01/2024 08/11/2024 3:18 AM FIBERGLASSER documented as of this encounter Care Teams Binder Cutter Relationship Specialty Start Date End Date Annalee Lerma, KNITTING MACHINE FIXER, ROTARY ENGRAVER [address] [place] [phone] PCP - General Nurse Practitioner 04/12/24 documented as of this encounter
--- OUTSIDE RECORDS SUMMARY | 2025-02-13 22:31 | XMS_ITS | Clinical Summary ---
Author Organization [facility] Address [address] [place] [id number] Care Team Providers Care Lieutenant General Name Role Phone Elsewhere, Pcp Primary Care Provider Unavailabl e Source Comments Patient records contain information from all sites at [facility]. For routine questions regarding patient records, call [phone] during business hours, M-F 8:00 AM - 5:00 PM Central Time. Record requests for emergency care only can be directed to [phone] at any time.[facility] Allergies Active Allergy Reactions Criticality Noted Date Comments Acetaminophen Itching 08/21/2024 Cefdinir GI intolerance,Itchin g,Other (see comments) High 06/17/2023 Diaphoresis (sweating) Possibly will react poorly to other beta-lactam antibiotics Clindamycin GI intolerance 05/27/2018 ORAL clindamycin - GI upset TOPICAL clindamycin - hives GI upset Doxycycline GI intolerance 05/10/2023 Within 20 minutes, had nonstop vomiting Hydromorphone Other (see comments) High 01/02/2020 Patient does not metabolize well. Intolerance Latex Rash 08/23/2024 Added based on information entered during case entry, please review and add reactions, type, and severity as needed Levofloxacin Edema (Reselect Reaction),Swelling 05/08/2020 Methylprednisolone Other (see comments) 10/14/2021 Consistent pattern of worsened symptoms after completing a course -- similar to a rebound effect Metoclopramide Other (see comments) 05/24/2017 Akathesia, per patient. Prochlorperazine Other (see comments) 05/12/2001 PROCHLORPERAZINE akathesia, wigging out Sulfa (Sulfonamide Antibiotics) Rash,Hives (Reselect Reaction) High 12/28/2012 SULFA DRUGS Medications * This document contains information received from the source organization and may not represent a complete record from that organization. diphenhydrAMINE (BenadryL) 12.5 mg/5 mL elixir Take 12.5 mg by mouth 2 (two) times a day. Can take up to 4 times daily if needed Active ergocalciferol (DrisdoL) 50,000 Unit capsule Take 50,000 Units by mouth 2 (two) times a week. Wednesday and 5 Active omeprazole (PriLOSEC) [address] capsule Take 40 mg by mouth 2 (two) times a day before morning and evening meals. 5 Active LORazepam (Ativan) 1 mg tablet Take 0.5-1 mg by mouth as needed for anxiety. 3 Active metFORMIN (Glucophage) 500 mg tablet Take 500 mg by mouth 2 (two) times a day with meals. 5 07/03/19 26 Active ondansetron ODT (Zofran-ODT) 4 mg disintegrating tablet Dissolve 4 mg in the mouth every 8 (eight) hours as needed. 5 Active tiZANidine (Zanaflex) 2 mg tablet Take 1-4 mg by mouth 3 (three) times a day as needed. 4 Active albuterol 90 mcg/actuation inhaler Inhale 1-2 puffs as needed. Active ibuprofen 200 mg tablet Take 2 tablets by mouth every 4 (four) hours as needed. Active cholecalciferol (Vitamin D3) 50 mcg (2,000 Unit) capsule Take 1 capsule by mouth daily. 5 Active hydroxychloroquine (PlaqueniL) 200 mg tabletIndications:P ain Joint Take 2 tablets (400 mg total) by mouth daily. 60 tablet 5 5 Active Active Problems Problem Noted Date Diagnosed Date Hypertension Essential Primary 11/07/2024 Costochondritis 10/02/2024 Swelling Tongue 09/05/2024 Anxiety 09/05/2024 Lump In The Right Breast Unspecified Quadrant Urinary Tract Infection Site Not Specified 09/05 Hematuria 09/05/2024 Nausea And Vomiting 09/05/2024 Lymphadenopathy 09/05/2024 Swelling Elbow Left 09/05/2024 Hives 09/05/2024 Dysphagia 09/05/2024 Angioedema Acquired Personal History 09/05/2024 Diarrhea 09/05/2024 Pain Right Upper Quadrant 09/05/2024 Pain Flank 09/05/2024 Pain Joint 09/05/2024 Lymphadenopathy Axillary 09/05/2024 Hysterectomy Abdominal Status Post 09/05/2024 Hidradenitis Suppurativa 08/03/2024 Deficiency Vitamin D 08/03/2024 Elevated Sedimentation Rate 08/03/2024 Fatigue 08/03/2024 Impaired Fasting Glucose 08/03/2024 Obesity, Class 3 08/03/2024 Menorrhagia 03/25/2024 Post Traumatic Stress Disorder Chronic Tobacco Use 03/25/2024 Mass Ovary 09/20/2023 Unspecified Ovarian Cyst Right Side 08/26/2023 Gastroesophageal Reflux Disease 07/21/2023 Asthma Mild Intermittent 07/21/2023 Gastrojejunal Ulcer Unspecif ied As Acute Or Chronic Without Hemorrhage Or Perforation 07/21/2023 Liver Disease 01/21/2022 Overview (09/05/2024): Very slow metabolizer of any hepatic cleared medications. 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 If admitted with flare, IV benadryl, IV zofran and IV famotidine works best to stabilize mast cells and improve sxs. 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 Hives; Liver Disease; Periodic Fever Syndromes (HCC); Lymphadenopathy Discharge Disposition: Home or Self Care 02/09/2025 8:00 AM CDT Comprehensive Visit Department of Medical Genetics in [place], [place] [address] [place] [phone] Markos Gracia M.D. Ana Luisa Jarvis, M.S., [facility] Hives (Primary Dx); Liver Disease; Periodic Fever Syndromes (HCC); Lymphadenopathy 01/29/2025 9:00 AM CDT Clinical Support Department of Medical Genetics in [place], [place] [address] [place] [phone] Boni Renteria M.D. [facility] Lund, [facility] 12/28/2024 1:00 PM CDT Virtual Visit Department of Pharmacy in [place], [place] [address] [place] [phone] Boni Renteria M.D. Gin Peña, Pharm.D., R.Ph., [facility] Hives; Angioedema Acquired Personal History; Unspecified Adverse Effect Of Drug Or Medicament Initial 12/28/2024 Clinical Communication Division of General Internal Medicine in [place], [place] [address] [place] [address] Boni Renteria M.D. 12/07/2024 9:00 AM CDT Telemedicine Section of Executive Medicine in [address] [phone] Boni Renteria M.D. Unspecified Adverse Effect Of Drug Or Medicament Initial (Primary Dx); Liver Disease; Gastroesophageal Reflux Disease; Swelling Tongue; Dysphagia; Diarrhea; Lymphadenopathy; Lymphadenopathy Axillary; Pain Right Upper Quadrant; Asthma Mild Intermittent (HCC); Mass Ovary; Hives; Anxiety; Lump In The Right Breast Unspecified Quadrant; Angioedema Acquired Personal History 11/24/2024 1:30 PM CDT Comprehensive Visit Division of Rheumatology in [address] [phone] Ronda Faulkner M.D. Periodic Fever Syndromes (HCC) (Primary Dx); Abnormal Positron Emission Tomography Scan; Hives; Swelling Elbow Left; Pain Joint 11/21/2024 2:45 PM CDT Clinical Communication Virtual Review in [address] [phone] Pre-visit Intake from Last 3 Months Immunizations Immunization Administration Dates Next Due Td (Adult), adsorbed 07/15/1997 Family History Medical History Relation Name Comments Hidradenitis suppurativa Brother Lead poisoning Brother child mcmahon Skin Sores Brother feet would just rip and bleed and could not walk, groin Stroke Brother Lung cancer Father Matt from cance r Smoker Father Matt Throat cancer Father Matt Lung cancer Father's Brother 1 Smoker Father's Brother 1 Lung cancer Father's Brother 2 Diabetes Father's Brother 3 Seizures Father's Brother 3 result of stroke Stroke Father's Brother 3 Developmental delay Granddaughter 1 sensory processing disorder Granddaughter 2 Autism spectrum disorder Grandson 1 Speech disorder Grandson 1 non verbal sensory processing disorder Grandson 1 Frequent fevers Half-Brother mostly in ch ildhood PCOS - Polycystic ovarian syndrome Maternal Cousin 1 Lashell Parkinson White syndrome Maternal Cousin 1 Skin disorder Maternal Cousin 2 severe ec zema, been hospitalized.Sores have burst, Skin disorder Maternal Cousin 3 severe ec zema, been hospitalized.Sores have burst, Graves' disease Maternal Cousin 4 Autism Maternal Cousin 5 POTS Maternal Cousin 6 Lashell Parkinson White syndrome Maternal Cousin 6 Autism spectrum disorder Maternal Cousin 7 Alopecia Maternal Cousin 8 Autism spectrum disorder Maternal Cousin 8 Chronic Hives Maternal Cousin 9 Eczema Maternal Cousin 9 Eran's disease Maternal Cousin 9 Thyroid cancer Maternal Cousin 9 sensory processing disorders Maternal Cousin 10 Stomach cancer Maternal Cousin 11 Lymphoma Maternal Cousin 12 Autism spectrum disorder Maternal Cousin 13 Skin sores Maternal Cousin 15 gets skin s sores so bad that they burst,and have to be very careful dressing them Skin disorder Maternal Cousin 16 severe e czema, been hospitalized.Sores have burst, Eczema Maternal Grandfather Kiet Heart attack Maternal Grandfather Kiet Parkinson disease Maternal Grandfather Kiet Di ed from parkinsons Rashes / Skin problems Maternal Grandfather Kiet heat induced, Stroke Maternal Grandfather Kiet He had several strokes before he got Parkinson s disease Lashell Parkinson White syndrome Maternal Grandfather Kiet Diabetes Maternal Grandmother Linda Heart failure Maternal Grandmother Linda Chronic Hives Mother Aliyah Diabetes Mother Aliyah Hidradenitis suppurativa Mother Aliyah Obesity Mother Aliyah Polio Mother Aliyah She had polio r elated surgeries until she was 18 Skin sores Mother Aliyah all over Stroke Mother Aliyah Parkinson disease Mother's Brother 1 Ziggy from parkinsons Rheumatic fever Mother's Brother 2 Heart attack Mother's Brother 3 Eczema Mother's Brother 4 Feliberto Heart attack Mother's Brother 4 Feliberto Lashell Parkinson White syndrome Mother's Brother 4 Feliberto Parkinson disease Mother's Sister 1 Eliz Breast cancer Mother's Sister 2 Lori Heart attack Mother's Sister 2 Lori Diabetes Mother's Sister 3 Peggy Parkinson disease Mother's Sister 3 Peggy Chronic Hives Mother's Sister 5 Eran's disease Mother's Sister 5 Alopecia Mother's Sister 6 Skin Mother's Sister 6 scaley, se ac eczema Chronic Hives Mother's Sister 7 Eczema Mother's Sister 7 ADD Nephew Chronic Hives Other 1 ADD / ADHD Other 4 Asperger's syndrome Other 4 uncertai n Autism spectrum disorder Other 5 non verbal Osteosarcoma Paternal Cousin 1 Lymphoma Paternal Cousin 2 CA - testicular, malignant Paternal Grandfather Matt Sr removed Diabetes Paternal Grandmother Beatriz Stroke Paternal Grandmother Beatriz fr om a stroke MTHFR Sister double gene Ovarian growth Sister hysterectomy Skin sores Sister chordial nevus Sister Autism spectrum disorder Son hig h functioning Foot sores Son seems to be sim ilar to probands Hydrocele Son Rashes / Skin problems Son eleva sahara blood histamine, frequent rashes similar to proband Sensory processing disorder Son Relation Name Status Comments Brother Alive Father Matt (Age 46) d. lung ca ncer Father's Brother 1 (Age 55-65) d . lung cancer Father's Brother 2 (Age 55-65) d . lung cancer Father's Brother 3 (Age 50s) d. seizure Father's Sister Alive less info Granddaughter 1 Alive Granddaughter 2 Alive Grandson 1 Alive Grandson 2 Alive a/w Half-Brother (Age 32) d. killed during Maternal Cousin 1 Alive Maternal Cousin 2 Alive Maternal Cousin 3 Alive Maternal Cousin 4 Alive Maternal Cousin 5 Alive Maternal Cousin 6 Alive Maternal Cousin 7 Alive multiple c hildren, all with autism Maternal Cousin 8 Alive Maternal Cousin 9 Alive Maternal Cousin 10 Alive Maternal Cousin 11 Alive Maternal Cousin 12 Alive Maternal Cousin 13 Alive Maternal Cousin 14 Fetus - Spont aneous Multiple SAB Maternal Cousin 15 Alive Maternal Cousin 16 Alive Maternal Grandfather Kiet (Age 76) d. colleen Maternal Grandmother Linda Alive Mother Aliyah Alive Mother's Brother 1 Ziggy (Age 69) d. chidi lai Mother's Brother 2 Alive Mother's Brother 3 Alive Mother's Brother 4 Feliberto Alive Mother's Sister 1 Eliz Alive Mother's Sister 2 Lori Alive Mother's Sister 3 Peggy Alive Mother's Sister 4 Alive Mother's Sister 5 Alive Mother's Sister 6 Alive Mother's Sister 7 Alive Nephew Alive a/w, some rhyth дмитрий head hitting as child Niece 1 Alive a/w Niece 2 Alive a/w, some rhyth дмитрий head hitting as child Niece/Nephew Fetus - Spontane ous Multiple SAB Other 1 Alive Other 2 Alive a/w Other 3 Alive a/w Other 4 Alive Other 5 Alive Other 6 Fetus - Spontane ous multiple SAB Other 7 Alive Paternal Cousin 1 (Age 21) Paternal Cousin 2 (Age 8) d. lym phoma Paternal Grandfather Matt Sr (Age 91) d. old age Paternal Grandmother Beatriz (Age 70s) d . stroke Sister Alive Son Alive Social History Tobacco Use Types Packs/Day Years Used Date Smoking Tobacco: Former Cigarettes 0.3 2 0 06/22/1992 - 06/22/1994 Passive Smoke Exposure: Past Smokeless Tobacco: Never Tobacco Cessation:Counseling Given: Not Answered Comments:Former smoker years ago Alcohol Use Standard Drinks/Week Comments Not Currently 0 (1 standard drink = 0.6 oz pure alcohol) Just casual drinks in my 20 s and 30 s . [facility] Utilities Answer Date Recorded In the past 12 months has e electric, gas, oil, or water [employer] threatened to shut off services in your [...] your living situation today? I have a [facility] place to live 08/31/2024 Comments No Sex and Gender Information Value Date Recorded Sex Assigned at Female 08/31/2024 9:56 PM CDT Legal Sex Female 5:48 AM MEDICAL DETAILIST Gender Identity Female 08/31/2024 9:56 PM CDT Sexual Orientation Straight 08/31/2024 9: 56 PM CDT Last Filed Vital Signs Vital Sign Reading Time Taken Comments Blood Pressure 139/80 02/09/2025 8:24 AM CDT Pulse 72 02/09/2025 8:24 AM CDT Temperature 36.9 C (98.4 F) 11/24/2024 1:14 PM CDT Respiratory Rate 18 09/11/2024 2:30 PM CDT Oxygen Saturation 93% 11/07/2024 8:44 AM CDT Inhaled Oxygen Concentration - - Weight 125 kg (275 lb 0.4 oz) 02/09/2025 8:24 AM CDT Height 161.7 cm (5' 3.66) 02/09/2025 8:24 AM CD T Body Mass Index 47.71 02/09/2025 8:24 AM CDT Plan of Treatment Health Maintenance Due Date Last Done Comments CT Colonography 1975 Cologuard 1975 FIT 1975 Hepatitis C Screening 1975 DTaP,Tdap,and Td Vaccines (1 - Tdap) 07/16/1997 07/15/1997 Hydroxychloroquine (PLAQUENI L) Baseline Exam 11/24/2024 Influenza Vaccine (#1) 2025 Abdominal Ultrasound 03/04/2025 09/01/2024, 09/01/2024, 10/13/2023, Additional history exists Mammogram 06/12/2025 06/12/2024, 06/12/2024, 04/12/2024, Additional history exists COVID-19 Vaccine (#1) 09/05/2025 Postpo rain from 1979 (Patient Refused) Hepatitis B Vaccines (1 of 3 - 19+ 3-dose series) 09/05/2025 Postponed from 1993 (Patient Refused) Pneumococcal vaccine (50+ years) (1 of 2 - PCV) 09/05/2025 Postponed from 1993 (Patient Refused) Zoster Vaccines (1 of 2) 09/05/2025 Pos tponed from 1993 (Patient Refused) Fasting Glucose for Diabetes Screening 11/07/2025 11/07/2024, 11/07/2024, 07/20/2024, Additional history exists Office Visit for Blood Pressure Check / Re-check 02/09/2026 02/09/2025 Lipid (Cholesterol) Screening 11/07/2029 11/07/2024 Colonoscopy 09/11/2034 09/11/2024, 11/12 (Performed elsewhere) Colorectal Cancer Screening 09/11/2034 Cervical/Vaginal Cancer Screening Discontinued 12/23/2015 Depression Screening (Annual PHQ-2) Completed 09/13/2024, 09/13/2024 HPV Vaccines Aged Out No longer eligi ble based on patient's age to complete this topic IPV Vaccines Aged Out No longer eligi ble based on patient's age to complete this topic Medical Devices Implanted Type Area Process Machine Operator Device Identifier Shelf Expiration Date Model / Serial / Lot Right Breast Clip Breast Other Right: Breast Procedures Procedure Name Priority Date/Time Associated Diagnosis Comments CRYOPRESERVATION FOR MOLEC STUDIES Routine 02/09/2025 8:53 AM CDT Hives Liver Disease Periodic Fever Syndromes (HCC) Lymphadenopathy HEMOGLOBIN A1C, B Routine 11/07/2024 6:5 5 AM CDT Impaired Fasting Glucose LIPID PANEL, S Routine 11/07/2024 6:55 AM CDT Pain Chest COLONOSCOPY Routine 09/11/2024 12:59 PM CDT Diarrhea OUTSIDE MG MAMMOGRAM Routine 06/12/2024 1:15 PM MEDICAL DETAILIST from Last 3 Months or Most Recently Relevant to Health Maintenance Results * Cryopreservation for Molecular Genetic Studies [...] is not a DNA banking service. If termite helper, guaranteed specimen storage is required, DNA banking [...] Gracia M.D. LAB GENETIC TESTING Final Result [facility] [address] [place] [address], [facility] [email or web address]] DTL [address] [facility] [address] [place] [address] * (ABNORMAL) Lipid Panel (11/07/2024 6:55 AM CDT) Triglycerides 119 mg/dL 11/07/2024 8:42 AM CDT DTL Comment: ----REFERENCE VALUE---- Normal: <150 mg/dL Borderline High: 150-199 mg/dL High: 200-499 mg/dL Very High: > or =500 mg/dL Cholesterol, Total 173 mg/dL 2024 8:42 AM CDT DTL Comment: ----REFERENCE VALUE---- Desirable: < 200 mg/dL Borderline High: 200 - 239 mg/dL High: > or = 240 mg/dL Cholesterol, LDL, Calculated 108 mg/dL 11/07/2024 8:42 AM CDT DTL Comment: ----REFERENCE VALUE---- Desirable: <100 mg/dL Above Desirable: 100-129 mg/dL Borderline High: 130-159 mg/dL High: 160-189 mg/dL Very High: >=190 mg/dL ----ADDITIONAL INFORMATION---- LDL cholesterol calculated using the Hardy/NIH equation. Cholesterol, HDL, S 44(L) >=50 mg/dL 11/07/2024 8:42 AM CDT DTL Cholesterol, Non-HDL, Calculated 129 mg/dL 11/07/2024 8:42 AM CDT DTL Comment: ----REFERENCE VALUE---- Desirable: <130 mg/dL Above Desirable: 130-159 mg/dL Borderline High: 160-189 mg/dL High: 190-219 mg/dL Very High: > or =220 mg/dL Fasting (8 HR or more) Unknown 11/07/2024 6:56 AM CDT DTL Blood (Blood, Venous) 11/07/2024 6:55 AM CDT 11/07/2024 7:54 AM CDT Kit Park M.D. LAB BLOOD ADD-ON Final R esult Performing Organization Address [facility] Co de Phone Number [facility] [address] [place] [address], [facility] [address] [place] [address] * Hemoglobin A1c (11/07/2024 6:55 AM CDT) Hemoglobin A1c, B 5.1 4.0 - 5.6 % 11/07/2024 7:45 AM CDT DT Blood (Blood, Venous) 11/07/2024 6:55 AM CDT 11/07/2024 7:16 AM CDT Kit Park M.D. LAB BLOOD ADD-ON Final [facility] Performing Organization Address City/[facility] Co de Phone Number [facility] [address] [place] [address], [place] [address] * Colonoscopy (09/11/2024 12:59 PM CDT) 09/11/2024 12:5 9 PM CDT Impressions [facility] - 09/11/2024 2:17 PM CDT Post-op Diagnoses: - The examined portion of the ileum was normal. - The entire examined colon is normal. Biopsied. - The distal rectum and anal verge are normal on retroflexion view. Narrative [facility] - 09/11/2024 2:17 PM CDT Gonda 9 GI GI Patient Name: Susy Wilson Date of : 1975 Age: 49 Procedure Date: 09/11/2024 Procedure: Colonoscopy Providers: Willie Chaudhry MD Referring Provider: Boni Renteria Pre-op Diagnoses: High risk colon cancer surveillance: Inflammatory bowel disease (unclassified) of 8 (or more) years duration with one-third (or more) of the colon involved Recommendation: - PATHOLOGY/MICROBIOLOGY FOLLOW-UP: The ordering provider is responsible for reviewing results from specimens obtained during this endoscopic procedure and communicating the findings to the patient. If guidance is needed for interpreting endoscopic findings or pathology results, please consider a gastroenterology e-consult. - Advance diet as tolerated today. - Return to referring physician. Findings: The digital rectal exam was normal. The terminal ileum appeared normal. The colon (entire examined portion) appeared normal. Four biopsies were taken every 10 cm with a cold forceps from the cecum, ascending colon, transverse colon, descending colon, sigmoid colon and rectum for dysplasia surveillance. These biopsy specimens from the cecum, ascending colon (Bottle A), transverse colon (Bottle B), descending colon (Bottle C), sigmoid colon and rectum (Bottle D), were sent to Pathology. The retroflexed view of the distal rectum and anal verge was normal and showed no anal or rectal abnormalities. Procedural Details: The patient was seen, evaluated, history reviewed, airway and heart-lung exams were performed by licensed provider and were satisfactory for planned level of sedation care. The risks, benefits and alternatives for the procedure and sedation were discussed and informed consent was obtained. A procedural pause was conducted in the presence of assisting personnel to verify the correct patient identity and procedure to be performed. Throughout the procedure, the patient's blood pressure, pulse, and oxygen saturations were monitored continuously. The Colonoscope was introduced under direct vision through the anus and advanced to the terminal ileum, with identification of the appendiceal orifice and IC valve. The colonoscopy was performed with ease. The patient tolerated the procedure well. The quality of the bowel preparation was evaluated using the BBPS ([facility] Bowel Preparation Scale) with scores of: Right Colon = 3, Transverse Colon = 3 and Left Colon = 3 (entire mucosa seen well with no residual staining, small fragments of stool or opaque liquid). The total BBPS score equals 9. Estimated Blood Loss: Estimated blood loss: none. Complications: No immediate complications. Sedation: Moderate (conscious) sedation was administered by the nurse and supervised by the endoscopist. The patient's oxygen saturation, heart rate, blood pressure and response to care were monitored. Total physician intraservice time was 51 minutes. Attending Participation: I personally performed the entire procedure. Willie Chaudhry MD 09/11/2024 2:17:41 PM Number of Addenda: 0 us Boni Renteria M.D. GI PROCEDURE ORDERABLES Rebecca carina Result [facility] NA * MM MAMMOGRAM DIAG RT W 3D LUCIE-Outside Mammogram (06/12/2024 1:15 PM MEDICAL DETAILIST) Narrative [facility] - 08/28/2024 11:49 AM CDT This order has been created and auto-finalized to support the import of outside images. If available, original interpretation can be found on the Media Tab in Chart Review, in Document Viewer, as an image in InfinityView or as an Addendum. If a re-interpretation or overread is required please follow defined workflow. us Provider Not In System IMG BI PROCEDURES Final R esult Performing Organization Address City/[facility]/ZIP Co de Phone Number [facility] NA from Last 3 Months or Most Recently Relevant to Health Maintenance Insurance [place] [address] Care Teams Lieutenant General Relationship Specialty Start Date End Date Elsewhere, Pcp PCP - General Internal Medicine 09/15/24
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
--- OUTSIDE RECORDS SUMMARY | 2025-02-13 22:31 | XMS_ITS | Clinical Summary ---
Author Organization [place] Address [address] [place] [address] Care Team Providers Care Narrow Fabric Loom Fixer Name Role Phone System, Provider Not In Primary Care Provider Un available Dione Leyva MD Unavailable [phone] Allergies Active Allergy Reactions Criticality Noted Date Comments Latex 08/23/2024 Added based on information entered during case entry, please review and add reactions, type, and severity as needed Prochlorperazine 05/12/2001 Sulfa Antibiotics 05/12/2001 Medications PENICILLIN VK TABS 500 MG OR 1 tab BID 56 0 07/20/2001 Active LORazepam (ATIVAN) 1 MG tablet Take 0.5-1 tablets (0.5-1 mg) by mouth every 6 hours as needed for muscle spasms 15 tablet 08/18/2022 Active gabapentin (NEURONTIN) 300 MG capsule Take 1 capsule (300 mg) by mouth 3 times daily 30 capsule 08/18/2022 Active ketorolac (TORADOL) 10 MG tablet Take 1 tablet (10 mg) by mouth every 6 hours as needed for moderate pain (4-6) 20 tablet 08/18/2022 Active Active Problems No known active problems Social History Tobacco Use Types Packs/Day Years Used Date Smoking Tobacco: Former Cigarettes 0 06/14/1985 - 06/14/1995 Smokeless Tobacco: Never Alcohol Use Standard Drinks/Week Comments Never 0 (1 standard drink = 0.6 oz pur e alcohol) Adolescent Education Answer Date Record ed Getting School Help Needed Not on file 03/06 Comments No Sex and Gender Information Value Date Recorded Sex Assigned at Not on file Legal Sex Female 2:20 PM CDT Gender Identity Not on file Sexual Orientation Not on file Last Filed Vital Signs Vital Sign Reading Time Taken Comments Blood Pressure 128/68 08/19/2022 12:21 AM EMBEDDED HARDWARE ENGINEER Pulse 78 08/19/2022 12:21 AM EMBEDDED HARDWARE ENGINEER Temperature 37.2 C (98.9 F) 08/18/2022 6:36 PM EMBEDDED HARDWARE ENGINEER Respiratory Rate 22 08/19/2022 12:21 AM EMBEDDED HARDWARE ENGINEER Oxygen Saturation 96% 08/19/2022 12:21 AM EMBEDDED HARDWARE ENGINEER Inhaled Oxygen Concentration - - Weight 121.6 kg (268 lb) 08/18/2022 6:36 PM EMBEDDED HARDWARE ENGINEER Height 165.1 cm (5' 5) 08/18/2022 6:36 PM EMBEDDED HARDWARE ENGINEER Body Mass Index 44.6 08/18/2022 6:36 PM EMBEDDED HARDWARE ENGINEER Plan of Treatment Health Maintenance Due Date Last Done Comments ADVANCE CARE PLANNING 1975 ANNUAL REVIEW OF HM ORDERS 1975 CT COLONOGRAPHY 1975 FIT 1975 FLEX SIG 1975 sDNA (Cologuard) 1975 COLONOSCOPY 02/02/1984 COLORECTAL CANCER SCREENING 02/02/1984 HEPATITIS B VACCINE (1 of 3 - 19+ 3-dose series) 1993 DTAP/TDAP/TD VACCINE (2 - Tdap) 07/16/1997 07/15/1997 YEARLY PREVENTIVE VISIT 05/11/2013 05/11/20 12, 09/21/2008, 06/12/2005, Additional history exists LIPID 2014 PAP 12/22/2018 12/23/2015 MAMMO SCREENING 06/05/2022 06/05/2020 PNEUMOCOCCAL VACCINE 50+ YEARS (1 of 1 - PCV) 02/02/2024 ZOSTER VACCINE (1 of 2) 02/02/2024 LUNG CANCER SCREENING 05/17/2024 05/17/2023 , 08/12/2022, 01/12/2018 PHQ-2 (once per calendar year) 2024 COVID-19 VACCINE ( - 2023- season) 2025 INFLUENZA VACCINE (#1) 2025 DIABETES SCREENING 08/18/2025 08/18/2022, 0 08/12/2022, 06/04/2020, Additional history exists HEPATITIS C SCREENING Completed 12/09/2015 HIV SCREENING Completed 02/26/2020 HPV VACCINE (No Doses Required) Completed MENINGITIS VACCINE Aged Out No longer eligible based on patient's age to complete this topic Procedures Procedure Name Priority Date/Time Associated Diagnosis Comments BASIC METABOLIC PANEL STAT 08/18/2022 7:27 [address] EMBEDDED HARDWARE ENGINEER CT CHEST PULMONARY EMBOLISM W CONTRAST STAT 08/12/2022 3:36 PM EMBEDDED HARDWARE ENGINEER from Last 3 Months or Most Recently Relevant to Health Maintenance Results * (ABNORMAL) Basic metabolic panel (08/18/2022 7:27 PM EMBEDDED HARDWARE ENGINEER) Sodium 135(L) 136 - 145 mmol/L 08/18/2022 7:53 PM EMBEDDED HARDWARE ENGINEER [facility] Potassium 4.5 3.4 - 5.3 mmol/L 08/18/2022 7:53 PM EMBEDDED HARDWARE ENGINEER [facility] Comment:Specimen slightly he molyzed, potassium may be falsely elevated. Chloride 102 98 - 107 mmol/L 08/18/2022 7:53 PM EMBEDDED HARDWARE ENGINEER [facility] Carbon Dioxide (CO2) 24 22 - 29 mmol/L 08/18/2022 7:53 PM EMBEDDED HARDWARE ENGINEER [facility] Anion Gap 9 7 - 15 mmol/L 08/18/2022 7:53 PM EMBEDDED HARDWARE ENGINEER [facility] Urea Nitrogen 10.7 6.0 - 20.0 mg/dL 08/18/2022 7:53 PM EMBEDDED HARDWARE ENGINEER [facility] Creatinine 0.76 0.51 - 0.95 mg/dL 08/18/2022 7:53 PM EMBEDDED HARDWARE ENGINEER [facility] Calcium 8.7 8.6 - 10.0 mg/dL 08/18/2022 7:53 PM EMBEDDED HARDWARE ENGINEER [facility] Glucose 89 70 - 99 mg/dL 08/18/2022 7:53 PM EMBEDDED HARDWARE ENGINEER [facility] GFR Estimate >90 >60 mL/min/1.7 3m2 08/18/2022 7:53 PM EMBEDDED HARDWARE ENGINEER [facility] Comment:eGFR calculated usin 2020 CKD-EPI equation. Blood VENOUS LINE / Unknown Venipuncture / Unknown 08/18/2022 7:27 PM EMBEDDED HARDWARE ENGINEER 08/18/2022 7:31 PM EMBEDDED HARDWARE ENGINEER us Vega Haywood MD LAB - BLOOD ORDERABLES Rebecca lim Result [facility] [address] [place] [address], [facility] [phone] * CT Chest Pulmonary Embolism w Contrast (08/12/2022 3:36 PM EMBEDDED HARDWARE ENGINEER) Anatomical Region Laterality Modality Chest, SUBRAD CT BODY, UMP CT CHEST Computed Tomography 08/12/2022 3:36 PM EMBEDDED HARDWARE ENGINEER Impressions 08/12/2022 3:44 PM EMBEDDED HARDWARE ENGINEER IMPRESSION: 1. No pulmonary embolism or other acute finding in the chest. 2. Hepatic steatosis. Narrative 08/12/2022 3:44 PM EMBEDDED HARDWARE ENGINEER EXAM: CT CHEST PULMONARY EMBOLISM W CONTRAST LOCATION: [facility] DATE/TIME: 08/12/2022 3:36 PM INDICATION: Right sided respirophasic chest pain COMPARISON: None. TECHNIQUE: CT chest pulmonary angiogram during arterial phase injection of IV contrast. Multiplanar reformats and MIP reconstructions were performed. Dose reduction techniques were used. CONTRAST: isovue 370 100ml FINDINGS: ANGIOGRAM CHEST: Pulmonary arteries are normal caliber and negative for pulmonary emboli. Thoracic aorta is negative for dissection. No CT evidence of right heart strain. LUNGS AND PLEURA: Normal. MEDIASTINUM/AXILLAE: Normal. CORONARY ARTERY CALCIFICATION: None. UPPER ABDOMEN: Hepatic steatosis. MUSCULOSKELETAL: Mild degenerative changes in the spine. Procedure Note Jack Winkler MD - 08/12/2022 EXAM: CT CHEST PULMONARY EMBOLISM W CONTRAST LOCATION: [facility] DATE/TIME: 08/12/2022 3:36 PM INDICATION: Right sided respirophasic chest pain COMPARISON: None. TECHNIQUE: CT chest pulmonary angiogram during arterial phase injection ofIV contrast. Multiplanar reformats and MIP reconstructions were performed.Dose reduction techniques were used. CONTRAST: isovue 370 100ml FINDINGS: ANGIOGRAM CHEST: Pulmonary arteries are normal caliber and negative forpulmonary emboli. Thoracic aorta is negative for dissection. No CTevidence of right heart strain. LUNGS AND PLEURA: Normal. MEDIASTINUM/AXILLAE: Normal. CORONARY ARTERY CALCIFICATION: None. UPPER ABDOMEN: Hepatic steatosis. MUSCULOSKELETAL: Mild degenerative changes in the spine. IMPRESSION: 1. No pulmonary embolism or other acute finding in the chest. 2. Hepatic steatosis. us Barrera Garsia DO IMG CT ORDERABLES Final Re sult from Last 3 Months or Most Recently Relevant to Health Maintenance Insurance * Guarantor: GRACIELA HANLEY Account Type Relation to Patient Date of Phone Billing Address Personal/Family Self [address] [address] [facility] Care Teams Narrow Fabric Loom Fixer Relationship Specialty Start Date End Date System, Provider Not In PCP - General Clinic 08/12/22 Dione Leyva MD [facility] [address] [place] [address] emt paramedic 08/13/23
--- OUTSIDE RECORDS SUMMARY | 2025-02-13 22:32 | XMS_ITS | Encounter Summary ---
Author Organization [facility] Address [address] [place] [address] Care Team Providers Care Expanding Machine Operator Name Role Phone DemiYannick terrymarielena Mccracken APRN, WILLIAM Primary Care Provider Encounter Details Date Type Department Care Team (Late st Contact Info) Description 12/18/2024 Results Follow-Up [facility] [address] [facility] 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 No acute concerns and will discuss at follow-up. Bertrand Apple MD, MHI, MPH, [facility] Occupational and Environmental Medicine Physician documented in this encounter Plan of Treatment Upcoming Encounters Date Type Department Care Team (Late st Contact Info) Description 02/26/2025 8:00 AM CDT Telemedicine [facility] [address] [place] [address] Nanda Ritter, PhD, LP [address] [place] [address] 03/08/2025 4:00 PM CDT Phone Visit [facility] [address] [place] [address] Bertrand Apple MD [address] [place] [address] 03/19/2025 8:00 AM CDT Telemedicine [facility] [address] [place] [address] Nanda Ritter, PhD, LP [address] [place] [address] 04/02/2025 8:00 AM CDT [facility] [address] [place] [address] Nanda Ritter, PhD, LP [address] [place] [address] [place] [address] 04/16/2025 8:00 AM [facility] [address] [place] [address] Nanda Ritter, PhD, LP [address] [place] [address] 04/30/2025 8:00 AM DAMAGE INSIDE ADJUSTER [facility] [address] [facility] [facility] [place] [address] Nanda Ritter, PhD, LP [address] [place] [address] 05/14/2025 8:00 AM [facility] Pain Management [address] [place] [address] Nanda Ritter, PhD, LP [address] [place] [address] 05/28/2025 8:00 AM [facility] Management [address] [place] [address] Nanda Ritter, PhD, LP [address] [place] [id number] documented as of this encounter Visit Diagnoses Not on filedocumented in this encounter Additional Health Concerns Infection Onset Date Last Indicated Resolved Time MRSA Comment:10/01/2017 from urgency room in RLQ absess 10/11/2018 10/11/2018 documented as of this encounter Care Teams Expanding Machine Operator Relationship Specialty Start Date End Date Annalee Lerma APRN, CIG[employer] P[employer]ER AND GRADER [address] [place] [id number] PCP - General Nurse Practitioner 04/12/24 documented as of this encounter
--- OUTSIDE RECORDS SUMMARY | 2025-02-13 22:32 | XMS_ITS | Encounter Summary ---
[facility] Organization [facility] Address [address] [place] [address] Care Team Providers Care Manager Pet Name Role Phone Annalee Lerma Saida MIMS, DROP CREW LABORER Primary Care Provider Encounter Details Date Type Department Care Team (Late Contact Info) Description 01/28/2017 Consent for Procedure/Treatme nt [facility] Department INFORMED CONSENT RECORD Social History Tobacco Use Types Packs/Day Years Used Date Smoking Tobacco: Former Cigarettes Q uit: 06/14/1987 Smokeless Tobacco: Never Comments:Smoke every blue mo on Alcohol Use Standard Drinks/Week Comments Yes 0 (1 standard drink = 0.6 oz pur e alcohol) socially Comments No Sex and Gender Information Value Date Recorded Sex Assigned at Female 06/18/2022 1:13 PM AGENCY SERVICE REPRESENTATIVE Legal Sex Female 7:25 AM CDT Gender Identity Not on file Sexual Orientation Not on file 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 [address] Nanda Ritter, PhD, LP 295 [place] [address] 03/08/2025 4:00 PM CDT Phone Visit [facility] [address] [place] [address] Bertrand Apple MD [address] [place] [address] 03/19/2025 8:00 AM CDT Telemedicine [facility] Pain [facility] [address] [facility] [place] [address] Nanda Ritter, PhD, LP 295 [place] [address] 04/02/2025 8:00 AM CDT Telemedicine [facility] Pain Management [address] [place] [address] Nanda Ritter, PhD, LP [address] [place] [address] 04/16/2025 8:00 AM AGENCY SERVICE REPRESENTATIVE Telemedicine [facility] Pain Management [address] [place] [address] Nanda Ritter, PhD, LP 295 [place] [address] 04/30/2025 8:00 AM AGENCY SERVICE REPRESENTATIVE Telemedicine [facility] Pain Management [address] [place] [address] Nanda Ritter, PhD, LP [address] [place] [address] 05/14/2025 8:00 AM AGENCY SERVICE REPRESENTATIVE Telemedicine [facility] Pain Management [address] [facility] [place] [address] Nanda Ritter, PhD, LP 295 [facility] [place] [address] 05/28/2025 8:00 AM AGENCY SERVICE REPRESENTATIVE Telemedicine [facility] [address] [facility]. [place] [phone] Nanda Ritter, PhD, LP 295 [place] [address] documented as of this encounter Visit Diagnoses Not on filedocumented in this encounter Additional Health Concerns Infection Onset Date Last Indicated Resolved Time ESBL - Contact (retired) Comment:Urine 02/20/14 03/06/2014 03/06/2014 01/13/2018 3:22 PM CDT MRSA Comment:10/01/2017 from urgency room in [facility] absess 10/11/2018 10/11/2018 C-Diff 08/01/2024 08/01/2024 08/11/2024 3:18 AM AGENCY SERVICE REPRESENTATIVE documented as of this encounter Care Teams Manager Pet Relationship Specialty Start Date End Date Annalee Lerma, ASSOCIATE ATTORNEY, DROP CREW LABORER [address] [place] [phone] PCP - General Nurse Practitioner 04/12/24 documented as of this encounter
--- OUTSIDE RECORDS SUMMARY | 2025-02-13 22:32 | XMS_ITS | Encounter Summary ---
Author Organization [facility] Address [address] [place] [address] Care Team Providers Care Top Hat Body Maker Name Role Phone Annalee Lerma Saida MIMS, MOTORCYCLE DELIVERY DRIVER Primary Care Provider Encounter Details Date Type Department Care Team (Late st Contact Info) Description 11/23/2016 Consent for Procedure/Treatment [facility] Department Social History Tobacco Use Types Packs/Day Years Used Date Smoking Tobacco: Former Cigarettes Q uit: 06/14/1987 Smokeless Tobacco: Never Comments:Smoke every blue mo on Alcohol Use Standard Drinks/Week Comments Yes 0 (1 standard drink = 0.6 oz pur e alcohol) socially Comments No Sex and Gender Information Value Date Recorded Sex Assigned at Female 06/18/2022 1:13 PM MARINE WATER TENDER Legal Sex Female 7:25 AM CDT Gender Identity Not on file Sexual Orientation Not on file 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 [address] Nanda Ritter, PhD, LP 295 [place] [address] 03/08/2025 4:00 PM CDT Phone Visit [facility] [address] [place] [address] Bertrand Apple MD [address] [place] [address] 03/19/2025 8:00 AM CDT Telemedicine [facility] [address] [facility] [place] [address] Nanda Ritter, PhD, LP 295 [place] [address] 04/02/2025 8:00 AM CDT Telemedicine [facility] [address] [facility] [place] [address] Nanda Ritter, PhD, LP 295 [place] [address] 04/16/2025 8:00 AM MARINE WATER TENDER Telemedicine [facility] [address] [facility] [place] [address] Nanda Ritter, PhD, LP 295 [place] [address] 04/30/2025 8:00 AM MARINE WATER TENDER Telemedicine [facility] [address] [facility] [place] [address] Nanda Ritter, PhD, LP [address] [place] [address] 05/14/2025 8:00 AM MARINE WATER TENDER Telemedicine [facility] [address] [facility] [place] [address] Nanda Ritter, PhD, LP 295 [facility] [place] [address] 05/28/2025 8:00 AM MARINE WATER TENDER Telemedicine [facility] 295 [facility]. [place] [address] Nanda Ritter, PhD, LP 295 [place] [address] documented as of this encounter Visit Diagnoses Not on filedocumented in this encounter Additional Health Concerns Infection Onset Date Last Indicated Resolved Time ESBL - Contact (retired) Comment:Urine 02/20/14 03/06/2014 03/06/2014 01/13/2018 3:22 PM CDT MRSA Comment:10/01/2017 from urgency room in [facility] absess 10/11/2018 10/11/2018 C-Diff 08/01/2024 08/01/2024 08/11/2024 3:18 AM MARINE WATER TENDER documented as of this encounter Care Teams Top Hat Body Maker Relationship Specialty Start Date End Date Annalee Lerma, TRAINING GENERALIST, MOTORCYCLE DELIVERY DRIVER [address] [place] [phone] PCP - General Nurse Practitioner 04/12/24 documented as of this encounter
--- OUTSIDE RECORDS SUMMARY | 2025-02-13 22:32 | XMS_ITS | Encounter Summary ---
Author Organization [facility] Address [address] [place] [address] Care Team Providers Care Medical Record Librarians Teacher Name Role Phone MargaritoYannick leungmarielena Cintron APRN, WILLIAM Primary Care Provider Reason for Visit * Reason Comments Medication Problems Encounter Details Date Type Department Care Team (Late st Contact Info) Description 01/09/2025 Telephone [facility] [address] [place] [address] Kiah Denise MD [facility] [place] [address] Medication Problems Social History Tobacco Use Types Packs/Day Years [...] Sex Assigned at Female 06/18/2022 1:13 PM CREW BOSS Legal Sex Female 7:25 AM CDT Gender Identity Not on file Sexual Orientation Not on file 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 * Kiah Denise MD - 01/09/2025 9:30 AM CDT Reviewed chart- no documentation or e-visit to dermatology about symptoms. Care team, please reach out and let the patient know that I received a message from the [facility] specialty pharmacist and will send a total of two Diflucan pills to her pharmacy. (she can initially take one in if symptoms mike, no need for repeat dose, but repeat dose would be available at 72 hours if needed.) Thanks * Kiah Denise MD - 01/09/2025 9:30 AM CDT ----- Message from Kee Ortega sent at 01/09/2025 8:48 AM CDT ----- Regarding: FW: yeast infection from recent antibx Hello Dr. Denise and Dr. Coffmanf, I'm not sure if this message has reached you yet, but I spoke with patient today and she is still experiencing symptoms of a yeast infection. Patient also stated this occurs every time she takes antibiotics. Please advise if treatment is appropriate. Thank you! Hivince [facility] pharmacist ----- Message ----- From: Nanda Ritter, PhD, LP Sent: 01/01/2025 9:09 AM CDT To: Kee Ortega, PharmD Subject: yeast infection from recent antibx Hello Kee, I am Susy's pain psychologist and I noticed that you will be meeting with her tomorrow 01/02. I just had a video session with Susy and she mentioned that she was recently prescribed a 90 day supply of an antibiotic by her house registry rn but has developed a yeast infection. She's been trying to reach her house registry rn about this but nobody has called her back. Would you be able to discuss this with her during your call tomorrow? I know she would really appreciate it. Thanks very much. Nanda Ritter, PhD documented in this encounter Plan of Treatment Upcoming Encounters Date Type Department Care Team (Late st Contact Info) Description 02/26/2025 8:00 AM CDT Telemedicine [facility] Pain Management [address] [place] [address]. [place] [address] Nanda Ritter, PhD, LP [address] [place] [address] 03/08/2025 4:00 PM CDT Phone Visit [facility] [address] [place] [address] Bertrand Apple MD [address] [place] [address] 03/19/2025 8:00 AM CDT [facility] Pain Management [address] [place] [address]. [place] [address] Nanda Ritter, PhD, LP [address] [place] [address] 04/02/2025 8:00 AM CDT [facility] Pain Management [address] [facility] [place] [address] Nanda Ritter, PhD, LP [address] [place] [address] 04/16/2025 8:00 AM CREW BOSS [facility] Pain Management [address] [facility] [address] Nanda Ritter, PhD, LP 295 [place] [address] 04/30/2025 8:00 AM CREW BOSS [facility] Pain Management [address] [facility] [facility] [address] Nanda Ritter, PhD, LP [address] [place] [address] 05/14/2025 8:00 AM CREW BOSS [facility] Pain Management [address] [facility] [address] Nanda Ritter, PhD, LP [address] [place] [address] 05/28/2025 8:00 AM [facility] Management [address] [facility] [place] [address] Nanda Ritter, PhD, LP [address] [place] [address] documented as of this encounter Visit Diagnoses Diagnosis Vulvovaginitis due to yeast- Primary documented in this encounter Additional Health Concerns Infection Onset Date Last Indicated Resolved Time MRSA Comment:10/01/2017 from urgency room in [facility] absess 10/11/2018 10/11/2018 documented as of this encounter Care Teams Medical Record Librarians Teacher Relationship Specialty Start Date End Date Annalee Lerma, SCAFFOLD BUILDER, LETTERER [address] [place] [phone] PCP - General Nurse Practitioner 04/12/24 documented as of this encounter
--- OUTSIDE RECORDS SUMMARY | 2025-02-13 22:32 | XMS_ITS | Encounter Summary ---
Author Organization [facility] Address [address] [place] [address] Care Team Providers Care Clinical Support Specialist Name Role Phone Annalee Lerma Saida MIMS, CONTROL ROOM SUPERVISOR Primary Care Provider Encounter Details Date Type Department Care Team (Late Contact Info) Description 12/29/2013 Consent for Procedure/Treatme nt [facility] Department INFORMED CONSENT Social History Tobacco Use Types Packs/Day Years Used Date Smoking Tobacco: Former Cigarettes 1.5 10 0 06/14/1987 - 06/14/1997 Smokeless Tobacco: Never Alcohol Use Standard Drinks/Week Comments Yes 0 (1 standard drink = 0.6 oz pur e alcohol) twice a year Comments No Sex and Gender Information Value Date Recorded Sex Assigned at Female 06/18/2022 1:13 PM PROPOSAL DEVELOPMENT MANAGER Legal Sex Female 7:25 AM CDT Gender Identity Not on file Sexual Orientation Not on file 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 [address] Nanda Ritter, PhD, LP 295 [place] [address] 03/08/2025 4:00 PM CDT Phone Visit [facility] [address] [place] [address] Bertrand Apple MD [address] [place] [address] 03/19/2025 8:00 AM CDT Telemedicine [facility] [address] [facility] [place] [address] Nanda Ritter, PhD, LP [address] [place] [address] 04/02/2025 8:00 AM CDT Telemedicine [facility] [address] [facility] [place] [address] Nanda Ritter, PhD, LP [address] [place] [address] 04/16/2025 8:00 AM PROPOSAL DEVELOPMENT MANAGER Telemedicine [facility] Pain Management [address] [facility] [place] [address] Nanda Ritter, PhD, LP 295 [place] [address] 04/30/2025 8:00 AM PROPOSAL DEVELOPMENT MANAGER Telemedicine [facility] Pain Management [address] [facility] [place] [address] Nanda Ritter, PhD, LP [address] [place] [address] 05/14/2025 8:00 AM PROPOSAL DEVELOPMENT MANAGER Telemedicine [facility] Management [address] [facility] [place] [address] Nanda Ritter, PhD, LP 295 [facility] [place] [address] 05/28/2025 8:00 AM PROPOSAL DEVELOPMENT MANAGER Telemedicine [facility] Management [address] [facility] [place] [address] Nanda Ritter, PhD, LP [address] [facility] [place] [address] documented as of this encounter Visit Diagnoses Not on filedocumented in this encounter Additional Health Concerns Infection Onset Date Last Indicated Resolved Time ESBL - Contact (retired) Comment:Urine 02/20/14 03/06/2014 03/06/2014 01/13/2018 3:22 PM CDT MRSA Comment:10/01/2017 from urgency room in [facility] absess 10/11/2018 10/11/2018 C-Diff 08/01/2024 08/01/2024 08/11/2024 3:18 AM PROPOSAL DEVELOPMENT MANAGER documented as of this encounter Care Teams Clinical Support Specialist Relationship Specialty Start Date End Date Annalee Lerma, DUPLICATING MACHINE MECHANIC, CONTROL ROOM SUPERVISOR [address] [place] [phone] PCP - General Nurse Practitioner 04/12/24 documented as of this encounter
--- OUTSIDE RECORDS SUMMARY | 2025-02-13 22:32 | XMS_ITS | Encounter Summary ---
Author Organization [employer] Address [address] [place] [address] Care Team Providers Care Lathe Setup Operator Name Role Phone DemiYannick terrymarielena Mccracken APRN, WILLIAM Primary Care Provider Reason for Visit * Reason Comments APPOINTMENT REQUEST Encounter Details Date Type Department Care Team (Late st Contact Info) Description 02/13/2025 Telephone [facility] 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 An appt was set up 03/08/25 because that's the soonest available but patient is hoping for something sooner to be seen. documented in this encounter Plan of Treatment Upcoming Encounters Date Type Department Care Team (Late st Contact Info) Description 02/26/2025 8:00 AM CDT [facility] Management [address] [place] [address] Nanda Ritter, PhD, LP [address] [place] [address] 03/08/2025 4:00 PM CDT Phone Visit [facility] [address] [place] [address] Bertrand Apple MD [address] [place] [address] 03/19/2025 8:00 AM CDT [facility] [address] [place] [address] Nanda Ritter, PhD, LP [address] [place] [address] 04/02/2025 8:00 AM CDT Telemedicine [facility] Management [address] [facility] [place] [address] Nanda Ritter, PhD, LP 295 [place] [address] 04/16/2025 8:00 AM PREMIX CONCRETE BATCHER Telemedicine [facility] Management [address] [facility] [address] Nanda Ritter, PhD, LP 295 [place] [address] 04/30/2025 8:00 AM PREMIX CONCRETE BATCHER Telemedicine [facility] Pain Management [address] [facility] [address] Nanda Ritter, PhD, LP [address] [place] [address] 05/14/2025 8:00 AM PREMIX CONCRETE BATCHER Telemedicine [facility] Pain Management [address] [facility] [place] [address] Nanda Ritter, PhD, LP [address] [place] [address] 05/28/2025 8:00 AM PREMIX CONCRETE BATCHER Telemedicine [facility] Management [address] [facility] [place] [address] Nanda Ritter, PhD, LP [address] [place] [address] documented as of this encounter Visit Diagnoses Not on filedocumented in this encounter Additional Health Concerns Infection Onset Date Last Indicated Resolved Time MRSA Comment:10/01/2017 from urgency room in [facility] absess 10/11/2018 10/11/2018 documented as of this encounter Care Teams Lathe Setup Operator Relationship Specialty Start Date End Date Annalee Lerma APRN, NUT SHELLER MACHINE OPERATOR [address] [place] [phone] PCP - General Nurse Practitioner 04/12/24 documented as of this encounter
--- OUTSIDE RECORDS SUMMARY | 2025-02-13 22:32 | XMS_ITS | Encounter Summary ---
Author Organization [employer] Address [address] [place] [address] Care Team Providers Care Ratoprinter Name Role Phone DemiYannick terrymarielena Mccracken APRN, MOBILE APPLICATION ARCHITECT Primary Care Provider Encounter Details Date Type Department Care Team (Late st Contact Info) Description 12/12/2024 Results Follow-Up [facility] [address] [place], [place] [phone] Kristi Marsh MD [address] [place], [place] [phone] Social History Tobacco Use Types Packs/Day Years [...] Sex Assigned at Female 06/18/2022 1:13 PM TRIMMER HELPER Legal Sex Female 7:25 AM CDT Gender Identity Not on file Sexual Orientation Not on file 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 Relayed message from provider. States she has been playing phone tag with theclinic and would like to be seen as soon as possible. She is very uncomfortable and has a large, blistered lesion in her groin. Discussed with Jenifer, who is working with Dr Marsh today. Scheduled patient on res 3 schedule in [place] today at 2:30 PM today in [place]. FYI to care team. documented in this encounter Plan of Treatment Upcoming Encounters Date Type Department Care Team (Late st Contact Info) Description 02/26/2025 8:00 AM CDT Telemedicine [facility] [address] [place] [address] Nanda Ritter, PhD, LP [address] [place] [address] 03/08/2025 4:00 PM CDT Phone Visit [facility] [address] [place] [address] Bertrand Apple MD [address] [place] [address] 03/19/2025 8:00 AM CDT Telemedicine [facility] [address] [place] [address] Nanda Ritter, PhD, LP [address] [place] [address] 04/02/2025 8:00 AM CDT Telemedicine [facility] [address] [place] [address] Nanda Ritter, PhD, LP 295 [place] [address] 04/16/2025 8:00 AM TRIMMER HELPER Telemedicine [facility] [address] [place] [address] Nanda Ritter, PhD, LP [address] [place] [address] 04/30/2025 8:00 AM TRIMMER HELPER Telemedicine [facility] [address] [place] [address] Nanda Ritter, PhD, LP [address] [place] [address] 05/14/2025 8:00 AM TRIMMER HELPER Telemedicine [facility] [address] [facility] [place] [address] Nanda Ritter, PhD, LP [address] [place] [address] 05/28/2025 8:00 AM TRIMMER HELPER [facility] Management [address] [facility] [place] [address] Nanda Ritter, PhD, LP [address] [place] [address] documented as of this encounter Visit Diagnoses Not on filedocumented in this encounter Additional Health Concerns Infection Onset Date Last Indicated Resolved Time MRSA Comment:10/01/2017 from urgency room in [facility] absess 10/11/2018 10/11/2018 documented as of this encounter Care Teams Ratoprinter Relationship Specialty Start Date End Date Annalee Lerma, TRANSMITTER SUPERVISOR, MOBILE APPLICATION ARCHITECT [address] [place] [phone] PCP - General Nurse Practitioner 04/12/24 documented as of this encounter
--- OUTSIDE RECORDS SUMMARY | 2025-02-13 22:32 | XMS_ITS | Clinical Summary ---
Author Organization [facility] Address [address] [place] [address] Care Team Providers Care Mosquito Sprayer Name Role Phone MargaritomadhuAnnalee APRN, HEALTH ANALYST Primary Care Provider Source Comments You are receiving this document as you are listed as the primary care provider,follow-up provider, or the patient has been referred to you for consultation.This is in compliance with the Medicare andMedicaid EHR Incentive Program,which states Providers who transition their patient to another setting of careor provider of care or refers their patient to another provider of care shouldprovide summary care record for each transition of care or referral. [facility] Allergies Active Allergy Reactions Criticality Noted Date Comments Cefdinir Itching,Other, see comments,Gastrointestina l High 06/17/2023 Diaphoresis (sweating) Possibly will react poorly to other beta-lactam antibiotics Clindamycin Gastrointestinal 05/27/2018 ORAL clindamycin - GI upset TOPICAL clindamycin - hives Doxycycline Gastrointestinal 05/10/2023 Within 20 minutes, had nonstop vomiting Hydromorphone Other, see comments Medium 01/02/2020 Intolerance ONLY NEEDS LESS DOSE Levofloxacin Edema,generalized,Sw cherelle ng 05/08/2020 Methylprednisolone Hives,Other, see comments High 10/14/2021 Consistent pattern of worsened symptoms after completing a course -- similar to a rebound effect Prochlorperazine Other, see comments 10/15/2003 akathesia, wigging out Metoclopramide Other, see comments 05/24/2017 Akathesia, per patient. Sulfa Antibiotics Hives,Blisters High Medications famotidine (PEPCID) 20 MG tablet Take 1 Tablet by mouth two times a day. 60 Tablet 11 1 Active diphenhydrAMINE (BENADRYL) 25 MG tablet Take 1 Tablet (25 mg) by mouth every 6 hours as needed for Itching. Active ALBUTEROL SULFATE HFA IN Inhale 1-2 Puffs as needed. Active tiZANidine (ZANAFLEX) 2 MG tablet Take 0.5-2 Tablets (1-4 mg) by mouth three times a day as needed. 60 Tablet 4 Active cyproheptadine (PERIACTIN) 4 MG tablet Take 0.5-1 Tablets (2-4 mg) by mouth three times a day as needed. 90 Tablet 5 Active ondansetron (ZOFRAN-ODT) 4 MG disintegrating tabletIndications: Nausea and Vomiting Take 1 Tablet (4 mg) by mouth every 6 hours as needed for Nausea. Indications: Nausea and Vomiting 60 Tablet 2 5 Active metFORMIN (GLUCOPHAGE) 500 MG tablet Take 1 [...] tolerated increase to 1000 mg twice daily. 180 Tablet 3 5 07/03/19 26 Active LORazepam (ATIVAN) 0.5 MG tablet Take 0.5 Tablets (0.25 mg) by mouth two times daily as needed for Anxiety. 30 Tablet 5 Active diphenhydrAMINE 2 % gel Apply topically three times a day as needed. 103 mL 1 5 Active Vitamin D, Ergocalciferol, 1.25 MG (98160 UT) CAPS Take 1 Capsule (50,000 Units) by mouth two times a week. 5 Active omeprazole (PRILOSEC) 20 MG capsule Take 1 Capsule (20 mg) by mouth two times a day. Take 1 hour before a meal. 60 Capsule 3 5 07/31/19 26 Active mupirocin (BACTROBAN) 2 % ointment Apply topically two times a day. With dressing changes 15 g 5 Active cephalexin (KEFLEX) 500 MG capsuleIndications :Hidradenitis suppurativa Take 1 Capsule (500 mg) by mouth two times a day. 180 Capsule 5 Active Hospital, Clinic, or Other Facility Administered Medication Ordered Dose Route Frequency Start Date End Date Status ketorolac (TORADOL) injection 15 mgIndications:Acute intractable headache, unspecified headache type 15 mg IM ONCE 02/13/2025 02/13/2025 Discontinued sodium chloride 0.9% bolus 1,000 mLIndications:Nausea and vomiting, unspecified vomiting type 1000 mL IV ONCE 02/13/2025 02/13/2025 Ended ondansetron (ZOFRAN-ODT) disintegrating tablet 8 mgIndications:Nausea and vomiting, unspecified vomiting type 8 mg OR ONCE 02/13/2025 02/13/2025 Ended ketorolac (TORADOL) injection 15 mgIndications:Acute intractable headache, unspecified headache type 15 mg IV ONCE 02/13/2025 02/13/2025 Ended diphenhydrAMINE (BENADRYL) injection 50 mgIndications:Acute intractable headache, unspecified headache type,Nausea and vomiting, unspecified vomiting type 50 mg IV ONCE 02/13/2025 02/13/2025 Ended Active Problems Patient Care Coordination No te Formatting of this note migh t be different from the original. Summary: Patient is status post acute pesticide (pyrethroid) exposure reaction, 02/25/2020, with persistent symptoms of concern. Abnormal liver metabolism: CY (slow), CYP2C9 (intermediate), and CYP2D6 (subnormal). Evidence of broad irritant chemical sensitivity and likely mold sensitivity. She was admitted 02/25/2020 - 02/29/2020 with pyrethroid toxicity, and was transferred to a Psych admission because of an unclear understanding of her symptomatology, with now documentation of pseudoseizures on her chart. This has induced significant anxiety for the patient and is increasingly a barrier for her engagement and trust of our care system. She does not have a significant psychiatric/psychologic history and her symptoms are not psychosomatic. 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 If admitted with flare, IV benadryl, IV zofran and IV famotidine works best to stabilize mast cells and improve sxs. High plasma histamine 02/19/2021 Urinary urgency 11/21/2018 Chest pain 01/12/2018 Morbid obesity 01/12/2016 Extended spectrum beta lactamase (ESBL) resistan ce 03/06/2014 Overview (01/14/2018): Pt meets criteria for discontinuation of isolation 8/3/18 Urine 02/20/14 Stress incontinence 02/23/2014 Overview (02/03/2017): Stress incontinence, s/p midurethral sling procedure 02/2014 Herpes labialis 05/11/2012 Post-traumatic stress disorder, chronic Resolved Problems Problem Noted Date Diagnosed Date Resolved Date Tobacco user 07/21/2023 09/20/2023 Delusional ideas 02/29/2020 05/28/2020 Encounter for surgical after care following surgery of genitourinary system 11/23/2018 09/20/19 24 Preop examination 10/10/2018 09/20/2023 Diabetes mellitus screening 10/10/2018 09/20/2023 Tearfulness 10/08/2017 05/28/2020 Yeast vaginitis 11/06/2015 05/06/2016 Bacterial vaginosis 11/06/2015 01/19/20 24 Groin mass in female 04/22/2012 012 Encounters Date Type Department Care Team Description 02/13/2025 7:00 PM CDT Lab Visit [facility] [address] [place] [phone] Mast cell activation syndrome (HRC); Pesticide poisoning, accidental or unintentional, subsequent encounter; Fatigue due to exposure, subsequent encounter; CY poor metabolizer (HRC); CYP2C9 intermediate metabolizer (HRC); CYP2D6 intermediate metabolizer (HRC); Drug reaction, subsequent encounter; Nausea and vomiting, unspecified vomiting type; Hives; Dysarthria; Exposure to chemical irritant; Irritant dermatitis; Environmental exposure; Hidradenitis suppurativa 02/13/2025 5:40 PM CDT Office Visit [facility] [facility] [address] [place] [phone] Alec Varela MD Acute intractable headache, unspecified headache type; Nausea and vomiting, unspecified vomiting type; Mast cell disorder; Vertigo 02/13/2025 8:00 AM CDT Telemedicine [facility] [address] [place] [address] Nanda Ritter, PhD, LP Pain disorder associated with psychological factors and medical condition (HRC) (Primary Dx); Chronic pain disorder 02/13/2025 Telephone [facility] [address] [place] [address] Bertrand Apple MD APPOINTMENT REQUEST 01/29/2025 8:00 AM CDT Telemedicine [facility] [address] [place] [address] Nanda Ritter, PhD, LP Pain disorder associated with psychological factors and medical condition (HRC) (Primary Dx); Chronic pain disorder 01/26/2025 Telephone [facility] [address] [place] [phone] Kee Ortega, PharmFranklyn 01/15/2025 8:00 AM CDT [facility] [address] [place] [address] Nanda Ritter, PhD, LP Pain disorder associated with psychological factors and medical condition (HRC) (Primary Dx); Chronic pain disorder 01/09/2025 5:00 PM CDT [facility] [address] [place] [address] Nanda Ritter, PhD, LP Pain disorder associated with psychological factors and medical condition (HRC) (Primary Dx); Chronic pain disorder 01/09/[address] [facility] [address] [place] [address] Kiah Denise MD Medication Problems 01/08/2025 7:00 AM CDT [facility] [address] [place] [address] Nanda Ritter, PhD, LP Pain disorder associated with psychological factors and medical condition (HRC) (Primary Dx); Chronic pain disorder 01/02/2025 9:30 AM CDT Phone Visit [facility] [address] [place] [address] Kee Ortega, PharmD Hidradenitis suppurativa (Primary Dx) 01/01/2025 8:00 AM CDT Telemedicine [facility] [address] [place] [address] Nanda Ritter, PhD, LP Pain disorder associated with psychological factors and medical condition (HRC) (Primary Dx); Chronic pain disorder 12/26/2024 8:40 AM CDT - 12/26/2024 9:00 AM CDT Surgery [facility] [address] [place] [address] Davis Mason MD right T8 Intercostal Nerve Block and costosternal injection 12/26/2024 8:07 AM CDT - 12/26/2024 9:15 AM CDT Hospital Encounter [facility] [address] [place] [address] Davis Mason MD Costochondritis; Intercostal neuralgia Discharge Disposition: Home 12/26/2024 7:25 AM CDT Ancillary Procedure [facility] [address] [place] [address] Davis Mason MD Costochondritis; Intercostal neuralgia 12/18/2024 3:40 PM CDT Lab Visit [facility] [address] [place] [address] Mast cell activation syndrome (HRC); Pesticide poisoning, accidental or unintentional, subsequent encounter; Fatigue due to exposure, subsequent encounter; CY poor metabolizer (HRC); CYP2C9 intermediate metabolizer (HRC); CYP2D6 intermediate metabolizer (HRC); Drug reaction, subsequent encounter; Nausea and vomiting, unspecified vomiting type; Hives; Dysarthria; Exposure to chemical irritant; Irritant dermatitis; Environmental exposure; Hidradenitis suppurativa 12/18/2024 2:30 PM CDT Office Visit [facility] [address] [place] [address] Hidradenitis suppurativa (Primary Dx) 12/18/2024 8:00 AM CDT Telemedicine [facility] [address] [place] [address] Nanda Ritter, PhD, LP Pain disorder associated with psychological factors and medical condition (HRC) (Primary Dx); Chronic pain disorder 12/18/2024 Results Follow-Up [facility] [address] [place] [address] Nanda Ritter, PhD, LP 12/18/2024 Telephone [facility] [address] [place] [address] Bertrand Apple MD Lab Orders Needed 12/12/2024 Results Follow-Up [facility] [address] [place] [address] Kristi Marsh MD 12/07/2024 1:45 PM CDT E-Visit [facility] [address] [place] [address] Annetta Chambers MD Chief Comp: Follow-up, NOS 12/04/2024 8:00 AM CDT Telemedicine [facility] [address] [place] [address] Nanda Ritter, PhD, LP Pain disorder associated with psychological factors and medical condition (HRC) (Primary Dx); Chronic pain disorder 12/01/2024 2:30 PM CDT Office Visit [facility] [address] [place] [address] Annetta Chambers MD Neoplasm of skin (HRC) (Primary Dx) 11/21/2024 8:00 AM CDT Telemedicine [facility] [address] [place] [address] Nanda Ritter, PhD, LP Pain disorder associated with psychological factors and medical condition (HRC) (Primary Dx); Chronic pain disorder 11/17/2024 Prep for Surgery [facility] [address] [place] [address] Davis Mason MD Costochondritis (Primary Dx); Intercostal neuralgia 11/16/2024 11:00 AM CDT Phone Visit [facility] [address] [place] [address] Bertrand Apple MD Mast cell activation syndrome (HRC) (Primary Dx); Hidradenitis suppurativa; Pesticide poisoning, accidental or unintentional, subsequent encounter; Fatigue due to exposure, subsequent encounter; CY poor metabolizer (HRC); CYP2C9 intermediate metabolizer (HRC); CYP2D6 intermediate metabolizer (HRC); Drug reaction, subsequent encounter; Nausea and vomiting, unspecified vomiting type; Hives; Dysarthria; Exposure to chemical irritant; Irritant dermatitis; Environmental exposure 11/16/2024 Telephone [facility] [address] [place] [address] Davis Mason MD from Last 3 Months Immunizations Immunization Administration Dates Next Due Td 07/15/1997 Family History Medical History Relation Name Comments Cancer, Lung Father Cancer, Other Father throat, smoker Emphysema Father Thyroid Disorder Father Cancer, Other Mother cervix Cerebrovascular Disease Mother Coronary Artery Disease Mother bypa ss age 35 Depression Mother Diabetes, Type II Mother Hypertension Mother Obesity Mother Stroke Mother Cancer, Breast Maternal Aunt 50s Alzheimer's Maternal Grandfather Osteoporosis Maternal Grandfather Diabetes Maternal Grandmother Cancer, Colon Paternal Grandfather Cancer, Other Paternal Grandfather testic ular Cancer Paternal Grandmother Diabetes Paternal Grandmother Cancer, Ovary Negative Family History Relation Name Status Comments Father throat cancer Mother Maternal Aunt Maternal Grandfather Maternal Grandmother Paternal Aunt Paternal Grandfather colon c ancer, testical cancer Paternal Grandmother Sister Social History Tobacco Use Types Packs/Day Years Used Date Smoking Tobacco: Former Cigarettes Q uit: 1985 Smokeless Tobacco: Never Tobacco Cessation:Counseling Given: Not Answered Alcohol Use Standard Drinks/Week Comments Never 0 [...] Sex Assigned at Female 06/18/2022 1:13 PM 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 Legal Sex Female 7:25 AM CDT Gender Identity Not on file Sexual Orientation Not on file 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 Not on file Not on file Not on pati e Last Filed Vital Signs Vital Sign Reading Time Taken Comments Blood Pressure 148/110 02/13/2025 7:41 PM CDT Pulse 72 02/13/2025 7:41 PM CDT Temperature 36.8 C (98.2 F) 02/13/2025 5:28 PM CDT Respiratory Rate 20 02/13/2025 5:28 PM CDT Oxygen Saturation 98% 02/13/2025 7:41 PM CDT Inhaled Oxygen Concentration - - Weight 124.3 kg (274 lb) 10/02/2024 8:02 AM CDT Height 162.6 cm (5' 4) 10/02/2024 8:02 AM CDT Body Mass Index 47.03 10/02/2024 8:02 AM CDT Plan of Treatment Upcoming Encounters Date Type Department Care Team (Late st Contact Info) Description 02/26/2025 8:00 AM CDT Telemedicine [facility] [address] [place] [address] Nanda Ritter, PhD, LP [address] [place] [phone] 03/08/2025 4:00 PM CDT Phone Visit [facility] [address] [place] [address] Bertrand Apple MD [address] [place] [address] 03/19/2025 8:00 AM CDT Telemedicine [facility] [address] [place] [address] Nanda Ritter, PhD, LP [address] [place] [address] 04/02/2025 8:00 AM CDT Telemedicine [facility] [address] [place] [address] Nanda Ritter, PhD, LP [address] [facility] [place] [address] 04/16/2025 8:00 AM 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 Telemedicine [facility] [address] [facility] [place] [address] Nanda Ritter, PhD, LP [address] [place] [address] 04/30/2025 8:00 AM 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 Telemedicine [facility] [address] [facility] [place] [address] Nanda Ritter, PhD, LP [address] [place] [address] 05/14/2025 8:00 AM 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 Telemedicine [facility] [address] [facility] [place] [address] Nanda Ritter, PhD, LP [address] [place] [address] 05/28/2025 8:00 AM 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 Telemedicine [facility] [address] [facility] [place] [address] Nanda Ritter, PhD, LP [address] [place] [address] Health Maintenance Due Date Last Done Comments Pneumococcal Vaccine 50+ Yrs (1 of 2 - PCV) 1993 DTaP/Tdap/Td Vaccine (1 - Tdap) 07/16/1997 07/15/1997 Colon Cancer Screening Plan Due 11/24/2016 11/23/2016, 02/04/2012, 02/04/2012 Adult Preventive Visit 12/22/2016 6, 05/11/2012, 09/21/2008, Additional history exists Cervical Cancer Screening 12/22/20202015, 05/11/2012, 05/11/2012, Additional history exists Zoster/Shingles Vaccine (1 of 2) 02/02/2024 COVID-19 Vaccine ( season) 2025 Mammogram 03/06/2025 03/06/2024, 05/15, 06/05/1998 Influenza Vaccine (#1) 2025 Diabetes Screening- (based on age and BMI) 11/08/2027 11/07/2024, 09/02/2024, 07/04/2024, Additional history exists Cholesterol 02/06/2029 02/07/2024, 08/12, 01/13/2018, Additional history exists HIV Screening (Preventive Services) Completed 12/18/2024, 02/26/2020, 12/09/2015, Additional history exists Hep C Screening (Preventive Services) Completed 12/18/2024, 04/24/2024, 12/09/2015, Additional history exists HepA Vaccine Aged Out No longer eligi ble based on patient's age to complete this topic Hib Vaccine Aged Out No longer eligi ble based on patient's age to complete this topic IPV (Polio) Vaccine Aged Out No longe r eligible based on patient's age to complete this topic MCV4 Vaccine Aged Out No longer eligi ble based on patient's age to complete this topic Meningococcal B Vaccine Aged Out No l onger eligible based on patient's age to complete this topic Medical Devices Implanted Type Area Blow Torch Burner Device Identifier Shelf Expiration Date Model / Serial / Lot Sling Sys Set Sparc - [id number] Implanted:Qty: 1 on 02/16/2014 by Alfred Hernadez MD at [facility] DEVICE [employer] 05/18/2016 [id number] / / [id number] Sling Advantage Mid-Urethral - [id number] Implanted:Qty: 1 on 03/11/2016 by Smooth Quezada MD at [facility] DEVICE N/A: BLADDER [employer] 11/26/2018 [id number] / / [id number] Procedures Procedure Name Priority Date/Time Associated Diagnosis Comments INTERVENTIONAL PAIN PROCEDURE Routine 12/26/2024 9:01 AM CDT Costochondritis Intercostal neuralgia INJECTION JOINT PAIN 12/26/2024 8:46 AM CDT Costochondritis Intercostal neuralgia Case Notes right T8 Intercostal Nerve Block and costosternal injection HIV 1/2 AG/AB 4TH GEN Routine 12/18/2024 3:48 PM CDT Hidradenitis suppurativa HEPATITIS C ANTIBODY, WITH REFLEX (ANTI-HCV) Routine 12/18/2024 3:48 PM CDT Hidradenitis suppurativa HEPATITIS B SURFACE ANTIBODY Routine 12/18/2024 3:48 PM CDT Hidradenitis suppurativa HEPATITIS B CORE ANTIBODY (ANTI-HBC) Routine 12/18/2024 3:48 PM CDT Hidradenitis suppurativa HEPATITIS B SURFACE ANTIGEN (HBSAG) Routine 12/18/2024 3:48 PM CDT Hidradenitis suppurativa COMPLETE BLOOD COUNT-W/DIFF Routine 12/18/2024 3:48 PM CDT Mast cell activation syndrome (HRC) CBC AND DIFFERENTIAL PANEL Routine 12/18/2024 3:48 PM CDT Mast cell activation syndrome (HRC) TB QUANTIFERON GOLD PLUS MITOGEN Routine 12/18/2024 3:48 PM CDT Hidradenitis suppurativa TB QUANTIFERON GOLD PLUS TB2 Routine 12/18/2024 3:48 PM CDT Hidradenitis suppurativa TB QUANTIFERON GOLD PLUS TB1 Routine 12/18/2024 3:48 PM CDT Hidradenitis suppurativa TB QUANTIFERON GOLD PLUS NIL Routine 12/18/2024 3:48 PM CDT Hidradenitis suppurativa TB QUANTIFERON GOLD PLUS Routine 12/18/2024 3:48 PM CDT Hidradenitis suppurativa C-REATIVE PROTEIN (CARDIAC) Routine 12/18/2024 3:48 PM CDT Hidradenitis suppurativa Mast cell activation syndrome (HRC) Pesticide poisoning, accidental or unintentional, subsequent encounter Fatigue due to exposure, subsequent encounter CY poor metabolizer (HRC) CYP2C9 intermediate metabolizer (HRC) CYP2D6 intermediate metabolizer (HRC) Drug reaction, subsequent encounter Nausea and vomiting, unspecified vomiting type Hives Dysarthria Exposure to chemical irritant Irritant dermatitis Environmental exposure GT (GAMMA GT) Routine 12/18/2024 3:48 PM CDT Mast cell activation syndrome (HRC) Pesticide poisoning, accidental or unintentional, subsequent encounter Fatigue due to exposure, subsequent encounter CY poor metabolizer (HRC) CYP2C9 intermediate metabolizer (HRC) CYP2D6 intermediate metabolizer (HRC) Drug reaction, subsequent encounter Nausea and vomiting, unspecified vomiting type Hives Dysarthria Exposure to chemical irritant Irritant dermatitis Environmental exposure CYTOKINE PANEL Routine 12/18/2024 3:48 PM CDT Mast cell activation syndrome (HRC) Pesticide poisoning, accidental or unintentional, subsequent encounter Fatigue due to exposure, subsequent encounter CY poor metabolizer (HRC) CYP2C9 intermediate metabolizer (HRC) CYP2D6 intermediate metabolizer (HRC) Drug reaction, subsequent encounter Nausea and vomiting, unspecified vomiting type Hives Dysarthria Exposure to chemical irritant Irritant dermatitis Environmental exposure COMPREHENSIVE METABOLIC PANEL Routine 12/18/2024 3:48 PM CDT Mast cell activation syndrome (HRC) Pesticide poisoning, accidental or unintentional, subsequent encounter Fatigue due to exposure, subsequent encounter CY poor metabolizer (HRC) CYP2C9 intermediate metabolizer (HRC) CYP2D6 intermediate metabolizer (HRC) Drug reaction, subsequent encounter Nausea and vomiting, unspecified vomiting type Hives Dysarthria Exposure to chemical irritant Irritant dermatitis Environmental exposure CHROMOGRANIN A Routine 12/18/2024 3:48 PM CDT Mast cell activation syndrome (HRC) Pesticide poisoning, accidental or unintentional, subsequent encounter Fatigue due to exposure, subsequent encounter CY poor metabolizer (HRC) CYP2C9 intermediate metabolizer (HRC) CYP2D6 intermediate metabolizer (HRC) Drug reaction, subsequent encounter Nausea and vomiting, unspecified vomiting type Hives Dysarthria Exposure to chemical irritant Irritant dermatitis Environmental exposure PROSTAGLANDIN D2 (PG D2) Routine 12/18/2024 3:48 PM CDT Mast cell activation syndrome (HRC) Pesticide poisoning, accidental or unintentional, subsequent encounter Fatigue due to exposure, subsequent encounter CY poor metabolizer (HRC) CYP2C9 intermediate metabolizer (HRC) CYP2D6 intermediate metabolizer (HRC) Drug reaction, subsequent encounter Nausea and vomiting, unspecified vomiting type Hives Dysarthria Exposure to chemical irritant Irritant dermatitis Environmental exposure TRYPTASE TOTAL Routine 12/18/2024 3:48 PM CDT Mast cell activation syndrome (HRC) Pesticide poisoning, accidental or unintentional, subsequent encounter Fatigue due to exposure, subsequent encounter CY poor metabolizer (HRC) CYP2C9 intermediate metabolizer (HRC) CYP2D6 intermediate metabolizer (HRC) Drug reaction, subsequent encounter Nausea and vomiting, unspecified vomiting type Hives Dysarthria Exposure to chemical irritant Irritant dermatitis Environmental exposure IGE TOTAL Routine 12/18/2024 3:48 PM CDT Mast cell activation syndrome (HRC) Pesticide poisoning, accidental or unintentional, subsequent encounter Fatigue due to exposure, subsequent encounter CY poor metabolizer (HRC) CYP2C9 intermediate metabolizer (HRC) CYP2D6 intermediate metabolizer (HRC) Drug reaction, subsequent encounter Nausea and vomiting, unspecified vomiting type Hives Dysarthria Exposure to chemical irritant Irritant dermatitis Environmental exposure ANTI IGE RECEPTOR ANTIBODY Routine 12/18/2024 3:48 PM CDT Mast cell activation syndrome (HRC) Pesticide poisoning, accidental or unintentional, subsequent encounter Fatigue due to exposure, subsequent encounter CY poor metabolizer (HRC) CYP2C9 intermediate metabolizer (HRC) CYP2D6 intermediate metabolizer (HRC) Drug reaction, subsequent encounter Nausea and vomiting, unspecified vomiting type Hives Dysarthria Exposure to chemical irritant Irritant dermatitis Environmental exposure CARBOXYHEMOGLOBIN Routine 12/18/2024 3:48 PM CDT Mast cell activation syndrome (HRC) Pesticide poisoning, accidental or unintentional, subsequent encounter Fatigue due to exposure, subsequent encounter CY poor metabolizer (HRC) CYP2C9 intermediate metabolizer (HRC) CYP2D6 intermediate metabolizer (HRC) Drug reaction, subsequent encounter Nausea and vomiting, unspecified vomiting type Hives Dysarthria Exposure to chemical irritant Irritant dermatitis Environmental exposure SKIN BIOPSY Routine 12/01/2024 3:09 PM CDT Neoplasm of skin (HRC) SURGICAL PATHOLOGY, DERMATOLOGY Routine 12/01/2024 3:09 PM CDT Neoplasm of skin (HRC) HGB A1C Routine 07/04/2024 3:32 PM 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 Hidradenitis suppurativa Mast cell activation syndrome (HRC) Pesticide poisoning, accidental or unintentional, subsequent encounter Fatigue due to exposure, subsequent encounter CY poor metabolizer (HRC) CYP2C9 intermediate metabolizer (HRC) CYP2D6 intermediate metabolizer (HRC) Drug reaction, subsequent encounter Nausea and vomiting, unspecified vomiting type Hives Dysarthria Exposure to chemical irritant Irritant dermatitis Environmental exposure MM MAMMOGRAM DIAG BILAT W 3D GARTH Routine 03/06/2024 2:55 PM CDT Encounter for screening mammogram for malignant neoplasm of breast LIPID PANEL & DIRECT LDL (IF NEEDED) Routine 02/07/2024 12:08 PM CDT Class 3 severe obesity with body mass index (BMI) of 45.0 to 49.9 in adult, unspecified obesity type, unspecified whether serious comorbidity present (HRC) COLONOSCOPY Routine 11/23/2016 9:29 AM CDT Screen for colon cancer PAP TEST, ROUTINE Routine 12/23/2015 1:28 PM CDT Screening for malignant neoplasm of cervix from Last 3 Months or Most Recently Relevant to Health Maintenance Results * Interventional Pain Procedure (12/26/2024 9:01 AM CDT) Anatomical Region Laterality Modality X-Ray Angiograph y Narrative 12/26/2024 9:07 AM CDT This is an imaging order that has been read externally. Davis Mason MD RAD GD Final Result * (ABNORMAL) Prostaglandin D2 (PG D2), Blood (12/18/2024 3:48 PM CDT) Prostaglandin D2 24(L) 35 - 115 pg/mL 12/25/2024 3:31 PM CDT [employer] [employer] Comment: This test has not been cleared or approved by the US Food and Drug Administration. This test was developed and its performance characteristics determined by [employer]. Values obtained with different methods, laboratories, or kits cannot be used interchangeably with the results on this report. The results cannot be interpreted as absolute evidence of the presence or absence of malignant disease. Performed by: [facility] [address] [place] [address] Barrera Ding MD,PHD, Blood Venipuncture / Unknown 12/18/2024 3:48 PM CDT 12/18/2024 3:48 PM CDT Bertrand Apple MD LAB_1 Final Result Performing Organization Address [facility]/State/[facility] Co de Phone Number [facility] [address] [place], [place] [id number] [place] [address] * Tryptase Total (12/18/2024 3:48 PM CDT) Tryptase Level 8.1 <=10.9 ug/L 12/21/2024 5:07 AM CDT [employer] Comment: Performed By: [facility] [address] [place] [address] Territory Sales Professional: Marcus Dudley MD, PhD CLIA Number: [id number] Blood Venipuncture / Unknown 12/18/2024 3:48 PM CDT 12/18/2024 3:48 PM CDT Bertrand Apple MD LAB_1 Final Result Performing Organization Address [facility]/ZIP Co de Phone Number [facility] [address] [place], [place] [address] [place] [address] * (ABNORMAL) Chromogranin A (12/18/2024 3:48 PM CDT) Chromogranin A 200(H) 0 - 187 ng/mL 12/20/2024 3:25 PM CDT [employer] Comment: INTERPRETIVE INFORMATION: Chromogranin A, Serum This test is performed using the [employer] CGA II Kryptor kit. Results obtained with different methods or kits cannot be used interchangeably. Results cannot be interpreted as absolute evidence of the presence or absence of malignant disease and should be evaluated in combination with clinical symptoms, diagnostic evidence, and/or other laboratory parameters. The change of CgA concentration over time provides diagnostic information whether a tumor progression has occurred. An increase of CgA serum concentrations of more than 50% to a value of greater than 100 ng/ml between consecutive monitoring visits defines a positive test result, representing a higher probability that a tumor progression has occurred. A change of CgA serum concentrations of equal or less than 50% increase between monitoring visits or to a value of 100 ng/ml or less defines a negative test result, representing a lower probability that a tumor progression has occurred. Nontumor related elevations of Chromogranin A can be observed in gastrointestinal, cardiovascular, and renal disorders, cancers other than neuroendocrine tumors, as well as with proton pump inhibitor (PPI) therapy. It is recommended to stop PPI treatment for at least 14 days prior to testing. Performed By: [facility] [address] [place] [address] Territory Sales Professional: Marcus Dudley MD, PhD CLIA Number: [id number] Blood VENOUS BLOOD SPECIMEN / Unknown Venipuncture / Unknown 12/18/2024 3:48 PM CDT 12/18/2024 3:48 PM CDT us Bertrand Apple MD LAB_1 Final Result Performing Organization Address City/[facility]/ZIP Co de Phone Number [employer] [address] [place], [place] [address] [place] [address] * TB QuantiFERON Gold Plus Mitogen (12/18/2024 3:48 PM CDT) Pathologist [facility] MITOGEN >10.000 IU/mL 12/20/2024 11:09 AM CDT [facility] Blood Venipuncture / Unknown 12/18/2024 3:48 PM CDT 12/18/2024 3:48 PM CDT Kiah Denise MD LAB_1 Final Result Performing Organization Address [facility] Phone Number [facility] [address] [place] [address] * TB QuantiFERON Gold Plus TB2 (12/18/2024 3:48 PM CDT) [facility] TB2 0.053 IU/mL 12/20/2024 11:09 AM CDT [facility] Blood Venipuncture / Unknown 12/18/2024 3:48 PM CDT 12/18/2024 3:48 PM CDT Kiah Denise MD LAB_1 Final Result Performing Organization Address [facility] Phone Number [facility] [address] [place] [address] * TB QuantiFERON Gold Plus TB1 (12/18/2024 3:48 PM CDT) [facility] TB1 0.057 IU/mL 12/20/2024 11:10 AM CDT [facility] Blood Venipuncture / Unknown 12/18/2024 3:48 PM CDT 12/18/2024 3:48 PM CDT Kiah Denise MD LAB_1 Final Result Performing Organization Address [facility] Phone Number [facility] [address] [place] [address] * TB QuantiFERON Gold Plus NIL (12/18/2024 3:48 PM CDT) [facility] TB QuantiFERON Gold Plus Negative, M. tuberculosis Infection NOT likely Negative, M. tuberculosis Infection NOT likely 12/20/2024 11:10 AM CDT [facility] NIL 0.032 IU/mL 12/20/2024 11:10 AM CDT [facility] TB1-NIL 0.03 IU/mL 12/20/2024 11:10 AM CDT [facility] TB2-NIL 0.02 IU/mL 12/20/2024 11:10 AM CDT [facility] Mitogen-NIL 9.97 IU/mL 12/20/2024 11:10 AM CDT [facility] Blood Venipuncture / Unknown 12/18/2024 3:48 PM CDT 12/18/2024 3:48 PM CDT Narrative [facility] - 12/20/2024 11:10 AM CDT The results of the QuantiFERON TB Gold Plus should be correlated clinically. A single positive test in populations with a low prevalence of latent tuberculosis infection (low pretest probability), should not be taken as definitive evidence of infection. Decisions regarding retesting should be made on a case by case basis. When TB1-NIL or TB2-NIL is low (<1 IU/mL), repeat testing may alternate between positive and negative due to measurement imprecision and not necessarily a change in immune response. For more information refer to: https://www.cdc.gov/mmwr/preview/mmwrhtml/kd5089x8.htm. us Kiah Denise MD LAB_1 Final Result [facility] [address] * Cytokine Panel (12/18/2024 3:48 PM CDT) Pathologist [facility] Interleukin 2 <2.1 <=2.1 pg/mL 12/20/2024 2:46 PM CDT [facility] Interleukin 2 Receptor (CD25), Soluble 257.6 175.3 - 858.2 pg/mL 12/20/2024 2:46 PM CDT [facility] Interleukin 12 <1.9 <=1.9 pg/mL 12/20/2024 2:46 PM CDT [facility] Interferon Gamma <4.2 <=4.2 pg/mL 12/20/2024 2:46 PM CDT [facility] Interleukin 4 <2.2 <=2.2 pg/mL 12/20/2024 2:46 PM CDT [facility] Interleukin 10 2.8 <=2.8 pg/mL 12/20/2024 2:46 PM CDT [facility] Interleukin 13 <1.7 <=2.3 pg/mL 12/20/2024 2:46 PM CDT [facility] Interleukin 17 <1.4 <=1.4 pg/mL 12/20/2024 2:46 PM CDT [facility] Interleukin 1 Beta <6.5 <=6.7 pg/mL 12/20/2024 2:46 PM CDT [facility] Interleukin 8 <3.0 <=3.0 pg/mL 12/20/2024 2:46 PM CDT [facility] Tumor Necrosis Factor - Alpha 4.3 <=7.2 pg/mL 12/20/2024 2:46 PM CDT [facility] Comment: INTERPRETIVE INFORMATION: Cytokines Results are used to understand the pathophysiology of immune, infectious, or inflammatory disorders, or may be used for research purposes. This test was developed and its performance characteristics determined by [facility] [email or web address]. It has not been cleared or approved by the US Food and Drug Administration. This test was performed in a CLIA certified laboratory and is intended for clinical purposes. Performed By: [facility] [email or web address] [address] [place], [place] [id number] Territory Sales Professional: Marcus Dudley MD, PhD CLIA Number: [id number] Interleukin 5 <2.1 <=2.1 pg/mL 12/20/2024 2:46 PM CDT [facility] Interleukin 6 <2.0 <=2.0 pg/mL 12/20/2024 2:46 PM CDT [facility] Blood Venipuncture / Unknown 12/18/2024 3:48 PM CDT 12/18/2024 3:48 PM CDT us Bertrand Apple MD LAB_1 Final Result [address] [address] [place] [address] * Hepatitis B Surface Antibody (12/18/2024 3:48 PM CDT) Hep B Surf Antibody Result <2.0 mIU/mL 12/18/2024 9:24 PM CDT [facility] Hep B Surf Antibody Interpretation Negative (Non Reactive) Positive (Reactive) 12/18/2024 9:24 PM CDT [facility] Comment:Individual is consid ered not immune to HBV infection. Blood Venipuncture / Unknown 12/18/2024 3:48 PM CDT 12/18/2024 3:48 PM CDT us Kiah Denise MD LAB_1 Final Result [facility] [address] [employer] [address] * IgE Receptor Antibody (12/18/2024 3:48 PM CDT) BASOPHILS (%), [id number] 3.7 0 - 12 % 12/28/2024 2:[address] [facility] Comment: Chronic autoimmune urticaria (CIU) may be associated with autoantibodies to the high affinity IgE receptor (Fc-epsilon R1) or to IgE. In the presence of these autoantibodies, cross-linking of the Ml-lsyjemf-S8 receptor occurs, leading to basophil activation. The laboratory tests for the activation of donor basophils by CIU serum by analyzing the expression of the basophil specific ectoenzyme, ZS302m. PK728h is upregulated on the surface of basophils following activation. A positive result is indicative of the presence of autoantibodies associated with CIU, but may also be due to other basophil-activating serum factors. Results must be correlated with clinical findings. The reference range was developed by the [facility] by analyzing 80 healthy control serum samples. REFERENCES: Chronic urticaria sera increase basophil UY515f expression. Sujatha FORRESTER1, Efrem SC, Екатерина B, Willa D, Darlin PK, Malik R, Ceci RJ. J Allergy Clin Immunol. 2006 Shen;117(6):1430-4. DISCLAIMER: This test uses a kit/reagent designated by the sewer head as for research use, not for clinical use as well as one or more reagents classified as an analyte specific reagent (ASR). The performance characteristics of this test have been validated by [facility] at [facility]. It has not been cleared or approved by the US Food and Drug Administration. The results are not intended to be used as the sole means for clinical diagnosis or patient management decisions. This laboratory is certified under the Clinical Laboratory Improvement Amendments of 1988 (CLIA-88) as qualified to perform high complexity clinical laboratory testing. For additional information, including test methodology, please refer to the [employer] Test Directory at [email or web address] Rubber Worker: Moreno Brito M.D., PhD [facility], [facility] IgE Receptor Interpretation See Note 12/28/2024 2:19 PM CDT [facility] Comment: RESULT: No interpretive commentary necessary. Test Performed by: [facility] [address] [place] [address] Blood Venipuncture / Unknown 12/18/2024 3:48 PM CDT 12/18/2024 3:48 PM CDT us Bertrand Apple MD LAB_1 Final Result [facility] [address] [place] [address] * LAB HIV-1 p24 AND HIV-1/HIV-2 ANTIBODIES (12/18/2024 3:48 PM CDT) HIV 1/2 Antigen/Antib alcira (4th generation) Negative (Non Reactive) Negative (Non Reactive) 12/18/2024 9:19 PM CDT [facility] Comment:HIV-1 p24 Antigen an d HIV-1/HIV-2 Antibody not detected Blood Venipuncture / Unknown 12/18/2024 3:48 PM CDT 12/18/2024 3:48 PM CDT us Kiah Denise MD LAB_1 Final Result [facility] [address] [place], [place] [id number] [place] [address] * (ABNORMAL) C-Reactive Protein (Cardiac) (12/18/2024 3:48 PM CDT) [facility] CRP, Sensitive 17.0(H) 0.0 - 3.0 mg/L 12/18/2024 8:56 PM CDT [facility] Blood Venipuncture / Unknown 12/18/2024 3:48 PM CDT 12/18/2024 3:48 PM CDT Narrative [facility] - 12/18/2024 8:56 PM CDT Low cardiovascular risk: <1.0 mg/L Average cardiovascular risk: 1.0-3.0 mg/L High cardiovascular risk: 3.1-10.0 mg/L Results >10.0 mg/L may indicate non-cardiac inflammation us Bertrand Apple MD LAB_1 Final Result [facility] [address] [place] * Complete Blood Count-W/Diff (12/18/2024 3:48 PM CDT) [facility] WBC 8.8 3.5 - 10.5 x10(9)/L 12/18/2024 4:28 PM T [facility] RBC 4.20 3.90 - 5.03 x10(12)/L 12/18/2024 4:28 PM T [facility] Hemoglobin 12.8 12.0 - 15.5 g/dL 12/18/2024 4:28 PM [facility] HCT 39.1 34.9 - 44.5 % 12/18/2024 4:28 PM [facility] MCV 93.1 80.0 - 100.0 fL 12/18/2024 4:28 PM [facility] MCH 30.5 27.6 - 33.3 pg 12/18/2024 4:28 PM [facility] MCHC 32.7 31.5 - 35.2 g/dL 12/18/2024 4:28 PM [facility] RDW 13.6 11.9 - 15.5 % 12/18/2024 4:28 PM [facility] Platelets 264 150 - 450 x10(9)/L 12/18/2024 4:28 PM [facility] Automated NRBC 0 <=0 /100 WBC 12/18/2024 4:28 PM [facility] Neutrophil Absolute 5.9 1.7 - 7.0 10(9)/L 12/18/2024 4:28 PM [facility] Lymphocyte Absolute 2.2 1.0 - 4.8 10(9)/L 12/18/2024 4:28 PM [facility] Monocyte Absolute 0.5 0.2 - 0.9 10(9)/L 12/18/2024 4:28 PM [facility] Eosinophil Absolute 0.2 0.0 - 0.5 10(9)/L 12/18/2024 4:28 PM [facility] Basophil Absolute 0.1 0.0 - 0.3 10(9)/L 12/18/2024 4:28 PM [facility] Immature Granulocyte % 0.2 0.0 - 0.5 % 12/18/2024 4:28 PM [facility] Blood Venipuncture / Unknown 12/18/2024 3:48 PM CDT 12/18/2024 4:24 PM CDT us Bertrand Apple MD LAB_1 Final Result [facility] [address] [place] [address], [facility] * (ABNORMAL) Comp Metabolic Panel (12/18/2024 3:48 PM CDT) Sodium 140 136 - 145 mmol/L 12/18/2024 6:00 PM [facility] Potassium 3.9 3.5 - 5.1 mmol/L 12/18/2024 6:00 PM [facility] Chloride 106 98 - 109 mmol/L 12/18/2024 6:00 PM [facility] CO2 22 20 - 29 mmol/L 12/18/2024 6:00 PM [facility] Anion Gap 12 6 - 16 mmol/L 12/18/2024 6:00 PM [facility] Calcium 9.2 8.4 - 10.4 mg/dL 12/18/2024 6:00 PM [facility] BUN 13 7 - 26 mg/dL 12/18/2024 6:00 PM [facility] Creatinine 0.90 0.55 - 1.02 mg/dL 12/18/2024 6:00 PM [facility] Alkaline Phosphatase 71 40 - 150 U/L 12/18/2024 6:00 PM [facility] AST (SGOT) 31 16 - 46 U/L 12/18/2024 6:00 PM [facility] ALT (SGPT) 26 0 - 55 U/L 12/18/2024 6:00 PM [facility] Bilirubin, Total 0.3 0.2 - 1.2 mg/dL 12/18/2024 6:00 PM [facility] Protein, Total 7.7 6.4 - 8.3 g/dL 12/18/2024 6:00 PM [facility] Albumin 3.6 3.5 - 5.0 g/dL 12/18/2024 6:00 PM [facility] Glucose 107(H) 70 - 100 mg/dL 12/18/2024 6:00 PM [facility] Comment:The given reference range is for the fasting state. Non-fasting reference range for glucose is 70 - 180 mg/dL. GFR, Estimated >60 >60 mL/min/1.7 3m2 12/18/2024 6:00 PM [facility] Hours Fasting 4.0 8 - 12 Hours 12/18/2024 6:00 PM [facility] Blood VENOUS BLOOD SPECIMEN / Unknown Venipuncture / Unknown 12/18/2024 3:48 PM CDT 12/18/2024 3:48 PM CDT us Bertrand Apple MD LAB_1 Final Result [facility] [address] [place] [address] * Hepatitis C Antibody, with Reflex (12/18/2024 3:48 PM CDT) Hepatitis C Antibody Negative (Non Reactive) Negative (Non Reactive) 12/18/2024 9:19 PM CDT [facility] Comment:Antibodies to HCV no t detected. Does not exclude the possiblity of exposure to HCV. Blood Venipuncture / Unknown 12/18/2024 3:48 PM CDT 12/18/2024 3:48 PM CDT us Kiah Denise MD LAB_1 Final Result [facility] [address] * IgE Total (12/18/2024 3:48 PM CDT) [facility] IgE,Total 114.0 0.0 - 126.9 kU/L 12/19/2024 7:42 PM CDT [facility] Blood Venipuncture / Unknown 12/18/2024 3:48 PM CDT 12/18/2024 3:48 PM CDT us Bertrand Apple MD LAB_1 Final Result Performing Organization Address [facility] de Phone Number [facility] [address] * GT (Gamma GT) (12/18/2024 3:48 PM CDT) [facility] GT (Gamma Gt) 22 9 - 36 U/L 12/18/2024 5:54 PM CDT [facility] Blood Venipuncture / Unknown 12/18/2024 3:48 PM CDT 12/18/2024 3:48 PM CDT Bertrand Apple MD LAB_1 Final Result Performing Organization Address [facility] de Phone Number [facility] [address] [place] [address] * (ABNORMAL) Carbon Monoxide,Blood Level (12/18/2024 3:48 PM CDT) [facility] Carboxyhemoglobin 2.3(H) 0.0 - 2.0 % 12/18/2024 7:15 PM CDT [facility] Blood Venipuncture / Unknown 12/18/2024 3:48 PM CDT 12/18/2024 3:48 PM CDT Narrative [facility] - 12/18/2024 7:15 PM CDT Reference range for Carboxyhemoglobin: Healthy non-smokers: <1.5% Smokers: <9.0% Bertrand Apple MD LAB_1 Final Result Performing Organization Address [facility] de Phone Number [facility] [address] [place] [address] * Hep B Surface Antigen, No Reflex (12/18/2024 3:48 PM CDT) Hepatitis B Surface Antigen Negative (Non Reactive) Negative (Non Reactive) 12/18/2024 9:24 PM CDT [facility] Blood Venipuncture / Unknown 12/18/2024 3:48 PM CDT 12/18/2024 3:48 PM CDT Kiah Denise MD LAB_1 Final Result Performing Organization Address [facility] de Phone Number [facility] [address] [place] [address] * Hepatitis B Core Antibody (12/18/2024 3:48 PM CDT) Hepatitis B Core Antibody Negative (Non Reactive) Negative (Non Reactive) 12/18/2024 9:24 PM CDT [facility] Blood Venipuncture / Unknown 12/18/2024 3:48 PM CDT 12/18/2024 3:48 PM CDT Kiah Denise MD LAB_1 Final Result Performing Organization Address [facility] de Phone Number [facility] [address] [place] [address] * Skin Biopsy (No CPT) (12/01/2024 3:09 PM CDT) Narrative EXTERNAL RESULTS - 12/01/2024 3:09 PM CDT Type of biopsy: punch Informed consent: discussed and consent obtained Timeout: patient name, date of , surgical site, and procedure verified Procedure prep: Patient was prepped and draped in usual sterile fashion Prep type: Isopropyl alcohol Anesthesia: the lesion was anesthetized in a standard fashion Anesthetic: 1% lidocaine w/ epinephrine 1-100,000 local infiltration Punch size: 4 mm Suture size: 4-0 Suture type: Prolene (polypropylene) Suture removal (days): 14 Hemostasis achieved with: suture and pressure Outcome: patient tolerated procedure well Post-procedure details: sterile dressing applied and wound care instructions given Dressing type: petrolatum and pressure dressing us Matti Blanco MD DERM PROCEDURE ORDERABLES F inal Result EXTERNAL RESULTS * Surgical Path, Dermatology (12/01/2024 3:09 PM CDT) Case Report Surgical Pathology Report Case: [id number] Authorizing Provider: Matti Blanco MD Collected: 12/01/2024 1509 Ordering Location: [facility] Received: 12/04/2024 0814 Pathologist: Daniel Marin MD Specimen: Skin, Right Axilla 12/07/2024 2:39 PM CDT RESPIRATORY DIRECTOR 3800 DERMATOLOGY FINAL DIAGNOSIS A. Skin, Right Axilla, punch: - Consistent with hidradenitis suppurativa, see comment Comment: Sections show a cystically dilated follicle with an apparent sinus tract and associated scar, consistent with hidradenitis suppurativa. 12/07/2024 2:39 PM CDT RESPIRATORY DIRECTOR 3800 DERMATOLOGY at 1439 CDT Clinical Information Clinical Impression: r/o HS 12/07/2024 2:39 PM CDT RESPIRATORY DIRECTOR 3800 DERMATOLOGY Microscopic Description Microscopic examination is performed. 12/07/2024 2:39 PM CDT RESPIRATORY DIRECTOR 3800 DERMATOLOGY Technical Information A portion of the technical staining [place] [address]. 12/07/2024 2:39 PM CDT RESPIRATORY DIRECTOR 3800 DERMATOLOGY Gross Description A: Received in formalin, labeled with the patient's name and Skin, Right Axilla is a 5 x 5 x 10 mm punch of skin. The specimen is marked with purple ink, bisected, and submitted entirely in one cassette. TV 12/07/2024 2:39 PM CDT RESPIRATORY DIRECTOR 3800 DERMATOLOGY Embedded Images 12/07/2024 2:39 PM CDT RESPIRATORY DIRECTOR 3800 DERMATOLOGY Skin (Skin) 12/01/2024 3:09 PM CDT 12/04/2024 8:14 AM CDT Comment:Clinical Impression: r/o HS us Matti Blanco MD LAB PATHOLOGY Final Resul t Performing Organization Address [facility] Co de Phone Number [facility] 3800 [facility] [address] * (ABNORMAL) Hgb A1C (07/04/2024 3:32 PM 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) Hemoglobin A1C 5.9(H) <=5.6 % 07/05/2024 10:59 AM 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 [facility] Estimated Average Glucose (Calc) 123 < 117 mg/dL 07/05/2024 10:59 AM [facility] Comment:Estimated average gl ucose (eAG) converts A1c into glucose units (mg/dL) and estimates average glucose over the past approximately 3 months. The eAG reference interval (<117 mg/dL) corresponds to an A1c of <5.7%. Blood Venipuncture / Unknown 07/04/2024 3:32 PM 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 07/04/2024 3:32 PM 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 Narrative [facility] - 07/05/2024 10:59 AM 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 For patients not previously diagnosed with diabetes: 5.7-6.4%: Increased risk for diabetes 6.5% and greater: Diagnostic for diabetes For patients diagnosed with diabetes: <8.0%: Goal of therapy for ages 18-75 Clinicians may recommend a higher or lower goal for specific individuals. us Bertrand Apple MD LAB_1 Final Result Performing Organization Address City/State/[facility] Co de Phone Number [facility] [address] [address], [facility] * MM Mammogram Diag Bilat W 3D Garth (03/06/2024 2:55 PM CDT) Anatomical Region Laterality Modality Breast Bilateral Mammography 03/06/2024 2:55 PM CDT Narrative 03/06/2024 3:38 PM CDT EXAM: MM MAMMOGRAM DIAG BILAT W 3D GARTH, MM US BREAST RT LOCATION: [facility] DATE: 03/06/2024 INDICATION: Palpable area of concern of the right breast. COMPARISON: Priors back to 06/05/2020 MAMMOGRAPHIC FINDINGS: Bilateral full-field digital diagnostic mammograms performed. The breasts are almost entirely fatty. Images evaluated with the assistance of CAD. Breast tomosynthesis was used in interpretation. Reduction mammoplasty change present. Corresponding to the area of palpable concern as marked by a BB of the upper right breast is a focal asymmetry with central fat density. No suspicious mass or calcifications of the left breast. ULTRASOUND FINDINGS: Targeted ultrasound in the area of palpable concern as indicated by the patient at the 9:00 right breast 12 cm from the nipple demonstrates a hyperechoic area of tissue with central anechoic area within measuring 1.6 x 0.7 x 0.4 cm. Given the fat density seen on the mammogram, this is felt to most likely represent fat necrosis or posttraumatic change. The patient denies any recent injury. The finding is felt to be probably benign. IMPRESSION: Probably benign finding of the right breast has the appearance of posttraumatic change. Follow-up right breast ultrasound in 3 months is recommended to determine resolution. ACR BI-RADS Category 3: Probably Benign. Results given to the patient. FDA Accredited Facility: [facility] [id number] Procedure Note Maricel Coronel MD - 03/06/2024 EXAM: MM MAMMOGRAM DIAG BILAT W 3D GARTH, MM US BREAST RT LOCATION: [facility] DATE: 03/06/2024 INDICATION: Palpable area of concern of the right breast. COMPARISON: Priors back to 06/05/2020 MAMMOGRAPHIC FINDINGS: Bilateral full-field digital diagnostic mammogramsperformed. The breasts are almost entirely fatty. Images evaluated withthe assistance of CAD. Breast tomosynthesis was used in interpretation.Reduction mammoplasty change present. Corresponding to the area ofpalpable concern as marked by a BB of the upper right breast is a focalasymmetry with central fat density. No suspicious mass or calcificationsof the left breast. ULTRASOUND FINDINGS: Targeted ultrasound in the area of palpable concernas indicated by the patient at the 9:00 right breast 12 cm from the nippledemonstrates a hyperechoic area of tissue with central anechoic areawithin measuring 1.6 x 0.7 x 0.4 cm. Given the fat density seen on themammogram, this is felt to most likely represent fat necrosis orposttraumatic change. The patient denies any recent injury. The finding isfelt to be probably benign. IMPRESSION: Probably benign finding of the right breast has the appearance ofposttraumatic change. Follow-up right breast ultrasound in 3 months isrecommended to determine resolution. ACR BI-RADS Category 3: Probably Benign. Results given to the patient. FDA Accredited Facility: [facility] [id number] us Dione Leyva MD RAD [facility] Fin al Result * (ABNORMAL) Lipid Panel and Direct LDL(If Needed) (02/07/2024 12:08 PM [facility]) Cholesterol 164 0 - 199 mg/dL 02/07/2024 3:43 PM [facility] Triglyceride 183(H) <=149 mg/dL 02/07/2024 3:43 PM [facility] HDL Cholesterol 31(L) >=40 mg/dL 3:43 PM [facility] LDL, Calculated 96 <130 mg/dL 3:43 PM [facility] Non HDL Chol, Calculated 133 <=159 mg/dL 02/07/2024 3:43 PM [facility] Cholesterol/HDL Ratio 5.3(H) <=5.0 02/07/2024 3:43 PM [facility] Hours Fasting 12.0 8 - 12 Hours 02/07/2024 3:43 PM [facility] Blood Venipuncture / Unknown 02/07/2024 12:08 PM CDT 02/07/2024 12:08 PM CDT Annalee Lerma WILLIAM MIMS LAB_1 Final R esult [facility] [address] [place] [address], [facility] [address] [place] [address] * COLONOSCOPY [[id number]] (11/23/2016 9:29 AM CDT) 11/23/2016 9:29 AM CDT Narrative [facility]) - 11/23/2016 10:02 AM CDT Instrument Name: 184 Indications: Diarrhea, Hematochezia, Abnormal CT of the GI tract Providers: Javad Liu MD, Jef Loving RN, Mary Cavazos LPN Referring MD: Stephanie Chávez MD Medicines: Midazolam 3 mg IV, Fentanyl 150 micrograms IV Complications: No immediate complications. Estimated blood loss: None. Procedure: Pre-Anesthesia Assessment: - Prior to the procedure, a History and Physical was performed, and patient medications, allergies and sensitivities were reviewed. The patient's tolerance of previous anesthesia was reviewed. - The risks and benefits of the procedure and the sedation options and risks were discussed with the patient. All questions were answered and informed consent was obtained. - Mental Status Examination: alert and oriented. Airway Examination: normal oropharyngeal airway and neck mobility. Respiratory Examination: clear to auscultation. CV Examination: normal. Abdominal Examination: bowel sounds present, abdomen soft and non-tender, no masses or organomegaly noted. - ASA Grade Assessment: II - A patient with mild systemic disease. - After reviewing the risks and benefits, the patient was deemed in satisfactory condition to undergo the procedure. - The anesthesia plan was to use moderate sedation/analgesia (conscious sedation). - Immediately prior to administration of medications, the patient was re-assessed for adequacy to receive sedatives. - Sedation was administered by an endoscopy nurse. The sedation level attained was moderate. - The heart rate, respiratory rate, oxygen saturations, blood pressure, adequacy of pulmonary ventilation, and response to care were monitored throughout the procedure. - The physical status of the patient was re-assessed after the procedure. After I obtained informed consent, the scope was passed under direct vision. Prior to sedation, patient identity and procedure was reverified. Throughout the procedure, the patient's blood pressure, pulse, and oxygen saturations were monitored continuously. The PCF-H190L was introduced through the anus and advanced to the terminal ileum, with identification of the appendiceal orifice and IC valve. The colonoscopy was performed without difficulty. The patient tolerated the procedure well. The quality of the bowel preparation was good. Findings: The terminal ileum appeared normal. Normal mucosa was found in the entire colon. Biopsies for histology were taken with a cold forceps from the entire colon for evaluation of microscopic colitis. External and internal hemorrhoids were found. The hemorrhoids were small. The exam was otherwise normal throughout the examined colon. Moderate Sedation: Moderate (conscious) sedation was administered by the endoscopy nurse and supervised by the endoscopist. The following parameters were monitored: oxygen saturation, heart rate, blood pressure, and response to care. Total physician intraservice time was 15 minutes. Impression: - The examined portion of the ileum was normal. - Normal mucosa in the entire examined colon. Biopsied. - External and internal hemorrhoids. Recommendation: - High fiber diet. - Use fiber, for example Citrucel, Fibercon, Konsyl or Metamucil. - Take Sitz baths as needed. - use OTC anusol/prep H as needed - Await pathology results. - Return to referring physician as previously scheduled. Procedure Code(s): --- Professional --- 81800, Colonoscopy, flexible; with biopsy, single or multiple 15286, Moderate sedation services provided by the same physician or other qualified health child care associate teacher performing the diagnostic or therapeutic service that the sedation supports, requiring the presence of an independent trained observer to assist in the monitoring of the patient's level of consciousness and physiological status; initial 15 minutes of intraservice time, patient age 5 years or older Diagnosis Code(s): --- Professional --- R19.7, Diarrhea, unspecified K92.1, Melena (includes Hematochezia) R93.3, Abnormal findings on diagnostic imaging of other parts of digestive tract K64.8, Other hemorrhoids CPT copyright 2016 [employer]. All rights reserved. The codes documented in this report are preliminary and upon buggy operator review may be revised to meet current compliance requirements. Attending Participation: Javad Liu MD 11/23/2016 10:02:38 AM Number of Addenda: 0 Note Initiated On: 11/23/2016 9:29 AM Procedure Note Javad Liu MD - 11/23/2016 Instrument Name: 184 Indications: Diarrhea, Hematochezia, Abnormal CT of the GI tract Providers: Javad Liu MD, Jef Loving RN, Mary Cavazos LPN Referring MD: Stephanie Chávez MD Medicines: Midazolam 3 mg IV, Fentanyl 150 micrograms IV Complications: No immediate complications. Estimated blood loss: None. Procedure: Pre-Anesthesia Assessment: - Prior to the procedure, a History and Physical was performed, and patient medications, allergies and sensitivities were reviewed. The patient's tolerance of previous anesthesia was reviewed. - The risks and benefits of the procedure and the sedation options and risks were discussed with the patient. All questions were answered and informed consent was obtained. - Mental Status Examination: alert and oriented. Airway Examination: normal oropharyngeal airway and neck mobility. Respiratory Examination: clear to auscultation. CV Examination: normal. Abdominal Examination: bowel sounds present, abdomen soft and non-tender, no masses or organomegaly noted. - ASA Grade Assessment: II - A patient with mild systemic disease. - After reviewing the risks and benefits, the patient was deemed in satisfactory condition to undergo the procedure. - The anesthesia plan was to use moderate sedation/analgesia (conscious sedation). - Immediately prior to administration of medications, the patient was re-assessed for adequacy to receive sedatives. - Sedation was administered by an endoscopy nurse. The sedation level attained was moderate. - The heart rate, respiratory rate, oxygen saturations, blood pressure, adequacy of pulmonary ventilation, and response to care were monitored throughout the procedure. - The physical status of the patient was re-assessed after the procedure. After I obtained informed consent, the scope was passed under direct vision. Prior to sedation, patient identity and procedure was reverified. Throughout the procedure, the patient's blood pressure, pulse, and oxygen saturations were monitored continuously. The PCF-H190L was introduced through the anus and advanced to the terminal ileum, with identification of the appendiceal orifice and IC valve. The colonoscopy was performed without difficulty. The patient tolerated the procedure well. The quality of the bowel preparation was good. Findings: The terminal ileum appeared normal. Normal mucosa was found in the entire colon. Biopsies for histology were taken with a cold forceps from the entire colon for evaluation of microscopic colitis. External and internal hemorrhoids were found. The hemorrhoids were small. The exam was otherwise normal throughout the examined colon. Moderate Sedation: Moderate (conscious) sedation was administered by the endoscopy nurse and supervised by the endoscopist. The following parameters were monitored: oxygen saturation, heart rate, blood pressure, and response to care. Total physician intraservice time was 15 minutes. Impression: - The examined portion of the ileum was normal. - Normal mucosa in the entire examined colon. Biopsied. - External and internal hemorrhoids. Recommendation: - High fiber diet. - Use fiber, for example Citrucel, Fibercon, Konsyl or Metamucil. - Take Sitz baths as needed. - use OTC anusol/prep H as needed - Await pathology results. - Return to referring physician as previously scheduled. Procedure Code(s): --- Professional --- 18597, Colonoscopy, flexible; with biopsy, single or multiple 79188, Moderate sedation services provided by the same physician or other qualified health child care associate teacher performing the diagnostic or therapeutic service that the sedation supports, requiring the presence of an independent trained observer to assist in the monitoring of the patient's level of consciousness and physiological status; initial 15 minutes of intraservice time, patient age 5 years or older Diagnosis Code(s): --- Professional --- R19.7, Diarrhea, unspecified K92.1, Melena (includes Hematochezia) R93.3, Abnormal findings on diagnostic imaging of other parts of digestive tract K64.8, Other hemorrhoids CPT copyright 2016 [employer]. All rights reserved. The codes documented in this report are preliminary and upon buggy operator review may be revised to meet current compliance requirements. Attending Participation: Javad Liu MD 11/23/2016 10:02:38 AM Number of Addenda: 0 Note Initiated On: 11/23/2016 9:29 AM us Javad Liu MD DIGESTIVE CARE Final Result [facility] ([facility]) [place], [place] * Pap Test, Routine (12/23/2015 1:28 PM CDT) Cytology, Pap (NOTE) Diplomatic Interpreter Cytology Report Patient Name: SUSY DE LOS SANTOS Taken: 12/23/2015 Received: 12/23/2015 Reported: 12/25/2015 Physician(s): ELSY OTT Source of Specimen Pap Test, Routine Cervical/Endocervi avi: Specimen Adequacy Satisfactory for evaluation. Endocervical component present. Final Cytologic Interpretation/Res ult NEGATIVE FOR INTRAEPITHELIAL LESION OR MALIGNANCY (NILM) *Electronically Signed Out By ANGELICA Everett (ASCP)* ANGELICA Everett (ASCP) Pap Smear History Date of Last Menstrual Period: 12/08/2015 Microscopic Description Microscopic examination is performed. [facility] Department of Pathology [address] [place] [address] [facility] 12/23/2015 1:28 PM CDT 12/23/2015 6:35 PM CDT us Elsy Ott MD LAB_1 Final Result [facility] [phone] from Last 3 Months or Most Recently Relevant to Health Maintenance Additional Health Concerns Infection Onset Date Last Indicated MRSA Comment:10/01/2017 from urgency room in [facility] absess 10/11/201809/14 Insurance [facility] MISC INS WORK COMP WC Advance Directives * Full Code (Latest Code Status on File) Date Activated Date Inactivated Comments 02/27/2020 8:21 PM 02/29/2020 3:09 PM * Full Code Date Activated Date Inactivated Comments 02/25/2020 3:16 PM 02/27/2020 8:21 PM * Full Code Date Activated Date Inactivated Comments 10/12/2018 4:08 PM 10/13/2018 4:40 PM * Full Code Date Activated Date Inactivated Comments 10/12/2018 7:29 AM 10/12/2018 4:08 PM * Full Code Date Activated Date Inactivated Comments 01/13/2018 4:35 PM 01/14/2018 6:45 PM Care Teams Mosquito Sprayer Relationship Specialty Start Date End Date Annalee Lerma, CADD OPERATOR, HEALTH ANALYST [address] [place] [address] PCP - General Nurse Practitioner 04/12/24
--- OUTSIDE RECORDS SUMMARY | 2025-02-13 22:32 | XMS_ITS | Encounter Summary ---
Author Organization [facility] Address [address] [place] [address] Care Team Providers Care Airbrush Artist Name Role Phone Annalee Lerma Kaykay MIMS, WILLIAM Primary Care Provider Encounter Details Date Type Department Care Team (Late st Contact Info) Description 01/26/2025 Telephone [facility] [address] [address] Kee Ortega, PharmD [address] [place] [address] Social History Tobacco Use Types Packs/Day Years [...] Sex Assigned at Female 06/18/2022 1:13 PM CATH LAB MANAGER Legal Sex Female 7:25 AM CDT Gender Identity Not on file Sexual Orientation Not on file 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 Dallas. Will follow up regarding scheduling in the coming days * Kee Ortega, PharmD - 01/26/2025 3:40 PM CDT Called and spoke with Susy to follow up on biologic therapy. See 01/02/25 MT note. Patient reported that Ilaris was denied but has been initiated on Anakinra. Following her first dose two nights ago, she experienced facial redness, tachycardia, chills, and nausea lasting 6-8 hours;symptoms were relieved with Benadryl. After the second dose last night, symptoms were milder (itchiness, nausea, and subcutaneous tingling), but did not require Benadryl. She plans to take her third dose tonight and will discontinue therapy if symptoms worsen (hives). Patient also noted a flare up in her hidradenitis since starting Anakinra, which she states typically occurs when beginning new medications. She is thinking she might discontinue Anakinra if it gets worse because she does not want to get to the point of not being able to walk due to the pain. She continues to take antibiotics for hidradenitis. Encouraged patient to contact her rheumatology care team for further guidance on Anakinra prior to her third dose tonight. She knows when to seek emergency care if needed. Will send FYI to dermatology care team. She may plan to pursue Humira or Cosentyx if Anakinra does not work out for her. Pharmacist will check-in with patient on Wednesday. documented in this encounter Plan of Treatment Upcoming Encounters Date Type Department Care Team (Late st Contact Info) Description 02/26/2025 8:00 AM CDT Telemedicine [facility] [address] [place] [address] Nanda Ritter, PhD, LP [address] [place] [address] 03/08/2025 4:00 PM CDT Phone Visit [facility] [address] [place] [address] Bertrand Dallas MD [address] [place] [address] 03/19/2025 8:00 AM CDT Telemedicine [facility] [address] [facility] [address] Nanda Ritter, PhD, LP [address] [place] [address] 04/02/2025 8:00 AM CDT Telemedicine [facility] [address] [facility] [address] Nanda Ritter, PhD, LP [facility] [place] [address] 04/16/2025 8:00 AM CATH LAB MANAGER Telemedicine [facility] [address] [place] [address] Nanda Ritter, PhD, LP [address] [place] [address] 04/30/2025 8:00 AM CATH LAB MANAGER Telemedicine [facility] [address] [place] [address] Nanda Ritter, PhD, LP [address] [place] [address] 05/14/2025 8:00 AM [facility] [address] [facility] [place] [address] Nanda Ritter, PhD, LP [address] [place] [phone] 05/28/2025 8:00 AM [facility] [address] [facility] [place] [address] Nanda Ritter, PhD, LP [address] [place] [phone] documented as of this encounter Visit Diagnoses Not on filedocumented in this encounter Additional Health Concerns Infection Onset Date Last Indicated Resolved Time MRSA Comment:10/01/2017 from urgency room in [facility] absess 10/11/2018 10/11/2018 documented as of this encounter Care Teams Airbrush Artist Relationship Specialty Start Date End Date Annalee Lerma APRN, DECAL CUTTER [address] [place] [phone] PCP - General Nurse Practitioner 04/12/24 documented as of this encounter
--- OUTSIDE RECORDS SUMMARY | 2025-02-13 22:32 | XMS_ITS | Encounter Summary ---
Author Organization [facility] Address [address] [place] [address] Care Team Providers Care Continuous Improvement Director Name Role Phone DemiYannick terrymarielena Mccracken APRN, SMOKE JUMPER SUPERVISOR Primary Care Provider Encounter Details Date Type Department Care Team (Latest Contact Info) Description 02/03/2016 Consent for Procedure/Treatme nt [facility] [address] [facility] 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 [address] Nanda Ritter, PhD, LP [facility] [place] [address] 03/08/2025 4:00 PM CDT Phone Visit [facility] [address] [place] [address] Bertrand Apple MD [address] [place] [address] 03/19/2025 8:00 AM CDT Telemedicine [facility] Pain Management [address] [place] [address] Nanda Ritter, PhD, LP 295 [place] [address] 04/02/2025 8:00 AM CDT Telemedicine [facility] Pain Management [address] [facility] [place] [address] Nanda Ritter, PhD, LP [address] [place] [address] 04/16/2025 8:00 AM PAN CLEANER Telemedicine [facility] Pain Management [address] [facility] [place] [address] Nanda Ritter, PhD, LP [facility] [place] [address] 04/30/2025 8:00 AM PAN CLEANER Telemedicine [facility] Pain Management [address] [facility] [place] [address] Nanda Ritter, PhD, LP [facility] [place] [address] 05/14/2025 8:00 AM PAN CLEANER Telemedicine [facility] Pain Management [address] [facility] [place] [address] Nanda Ritter, PhD, LP 295 [place] [address] 05/28/2025 8:00 AM PAN CLEANER Telemedicine [facility] Pain Management 295 [facility] [place] [address] Nanda Ritter, PhD, LP 295 [place] [address] documented as of this encounter Visit Diagnoses Not on filedocumented in this encounter Additional Health Concerns Infection Onset Date Last Indicated Resolved Time ESBL - Contact (retired) Comment:Urine 02/20/14 03/06/2014 03/06/2014 01/13/2018 3:22 PM CDT MRSA Comment:10/01/2017 from urgency room in [facility] absess 10/11/2018 10/11/2018 C-Diff 08/01/2024 08/01/2024 08/11/2024 3:18 AM PAN CLEANER documented as of this encounter Care Teams Continuous Improvement Director Relationship Specialty Start Date End Date Annalee Lerma APRN, SMOKE JUMPER SUPERVISOR [address] [place] [phone] PCP - General Nurse Practitioner 04/12/24 documented as of this encounter
--- OUTSIDE RECORDS SUMMARY | 2025-02-13 22:32 | XMS_ITS | Encounter Summary ---
Author Organization [facility] Address [address] [place] [address] Care Team Providers Care Salt Maker Name Role Phone Annalee Lerma Saida MIMS, PRESSER MACHINE Primary Care Provider Encounter Details Date Type Department Care Team (Late st Contact Info) Description 07/02/2015 Consent for Procedure/Treatme nt [facility] Department INFORMED CONSENT RECORD Social History Tobacco Use Types Packs/Day Years Used Date Smoking Tobacco: Former Cigarettes Q uit: 06/14/1987 Smokeless Tobacco: Never Alcohol Use Standard Drinks/Week Comments No 0 (1 standard drink = 0.6 oz pur e alcohol) Comments No Sex and Gender Information Value Date Recorded Sex Assigned at Female 06/18/2022 1:13 PM COAGULATING BATH MIXER Legal Sex Female 7:25 AM CDT Gender Identity Not on file Sexual Orientation Not on file 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 [place], [place] [id number] Nanda Ritter, PhD, LP 295 [place] [address] 03/08/2025 4:00 PM CDT Phone Visit [facility] [address] [place] [address] Bertrand Apple MD [address] [place] [address] 03/19/2025 8:00 AM CDT Telemedicine [facility] Pain Management [address] [facility] [place] [address] Nanda Ritter, PhD, LP 295 [place] [address] 04/02/2025 8:00 AM CDT Telemedicine [facility] Pain Management [address] [facility] [place] [address] Nanda Ritter, PhD, LP 295 [place] [address] 04/16/2025 8:00 AM COAGULATING BATH MIXER Telemedicine [facility] Management [address] [facility] [place] [address] Nanda Ritter, PhD, LP 295 [place] [address] 04/30/2025 8:00 AM COAGULATING BATH MIXER Telemedicine [facility] Management [address] [place] [address] Nanda Ritter, PhD, LP [address] [place] [address] 05/14/2025 8:00 AM COAGULATING BATH MIXER Telemedicine [facility] Pain Management [address] [facility] [place] [address] Nanda Ritter, PhD, LP 295 [facility] [place] [address] 05/28/2025 8:00 AM COAGULATING BATH MIXER Telemedicine [facility] Pain Management 295 [facility]. [place] [address] Nanda Ritter, PhD, LP 295 [place], [place] [phone] documented as of this encounter Visit Diagnoses Not on filedocumented in this encounter Additional Health Concerns Infection Onset Date Last Indicated Resolved Time ESBL - Contact (retired) Comment:Urine 02/20/14 03/06/2014 03/06/2014 01/13/2018 3:22 PM CDT MRSA Comment:10/01/2017 from urgency room in [facility] absess 10/11/2018 10/11/2018 C-Diff 08/01/2024 08/01/2024 08/11/2024 3:18 AM COAGULATING BATH MIXER documented as of this encounter Care Teams Salt Maker Relationship Specialty Start Date End Date Annalee Lerma, BUSINESS SALES CONSULTANT, PRESSER MACHINE [address] [place] [phone] PCP - General Nurse Practitioner 04/12/24 documented as of this encounter
--- OUTSIDE RECORDS SUMMARY | 2025-02-13 22:32 | XMS_ITS | Encounter Summary ---
Author Organization [facility] Address [address] [place] [address] Care Team Providers Care Outdoor Studies Professor Name Role Phone Annalee Lerma Saida MIMS, RETAIL SERVICES PROFESSIONAL Primary Care Provider Encounter Details Date Type Department Care Team (Late Contact Info) Description 11/23/2016 Consent for Procedure/Treatme nt [facility] Department INFORMED CONSENT RECORD Social History Tobacco Use Types Packs/Day Years Used Date Smoking Tobacco: Former Cigarettes Q uit: 06/14/1987 Smokeless Tobacco: Never Comments:Smoke every blue mo on Alcohol Use Standard Drinks/Week Comments Yes 0 (1 standard drink = 0.6 oz pur e alcohol) socially Comments No Sex and Gender Information Value Date Recorded Sex Assigned at Female 06/18/2022 1:13 PM ROTARY HELPER Legal Sex Female 7:25 AM CDT Gender Identity Not on file Sexual Orientation Not on file 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 [address] Nanda Ritter, PhD, LP 295 [place] [address] 03/08/2025 4:00 PM CDT Phone Visit [facility] [address] [place] [address] Bertrand Apple MD [address] [place] [address] 03/19/2025 8:00 AM CDT Telemedicine [facility] Pain Management [address] [place] [address] Nanda Ritter, PhD, LP 295 [place] [address] 04/02/2025 8:00 AM CDT Telemedicine [facility] Pain Management 295 [facility] [place] [address] Nanda Ritter, PhD, LP [address] [place] [address] 04/16/2025 8:00 AM ROTARY HELPER Telemedicine [facility] Pain Management [address] [facility] [place] [address] Nanda Ritter, PhD, LP 295 [place] [address] 04/30/2025 8:00 AM ROTARY HELPER Telemedicine [facility] Pain Management [address] [facility] [place] [address] Nanda Ritter, PhD, LP [address] [place] [address] 05/14/2025 8:00 AM ROTARY HELPER Telemedicine [facility] Pain Management [address] [place] [address] Nanda Ritter, PhD, LP 295 [facility] [place] [address] 05/28/2025 8:00 AM ROTARY HELPER Telemedicine [facility] Pain Management 295 [facility]. [place] [phone] Nanda Ritter, PhD, LP 295 [place] [address] documented as of this encounter Visit Diagnoses Not on filedocumented in this encounter Additional Health Concerns Infection Onset Date Last Indicated Resolved Time ESBL - Contact (retired) Comment:Urine 02/20/14 03/06/2014 03/06/2014 01/13/2018 3:22 PM CDT MRSA Comment:10/01/2017 from urgency room in [facility] absess 10/11/2018 10/11/2018 C-Diff 08/01/2024 08/01/2024 08/11/2024 3:18 AM ROTARY HELPER documented as of this encounter Care Teams Outdoor Studies Professor Relationship Specialty Start Date End Date Annalee Lerma, DRAGLINE OPERATOR HELPER, RETAIL SERVICES PROFESSIONAL [address] [place] [phone] PCP - General Nurse Practitioner 04/12/24 documented as of this encounter
--- OUTSIDE RECORDS SUMMARY | 2025-02-13 22:32 | XMS_ITS | Encounter Summary ---
Author Organization [facility] Address [address] [place] [address] Care Team Providers Care Service Control Operator Name Role Phone Annalee Lerma Saida MIMS, ANIMAL PATHOLOGY TEACHER Primary Care Provider Encounter Details Date Type Department Care Team (Late Contact Info) Description 02/07/2016 Consent for Procedure/Treatme nt [facility] Department INFORMED CONSENT Social History Tobacco Use Types Packs/Day Years Used Date Smoking Tobacco: Former Cigarettes Q uit: 06/14/1987 Smokeless Tobacco: Never Comments:Smoke every blue mo on Alcohol Use Standard Drinks/Week Comments Yes 0 (1 standard drink = 0.6 oz pur e alcohol) socially Comments No Sex and Gender Information Value Date Recorded Sex Assigned at Female 06/18/2022 1:13 PM CARBON SEQUESTRATION PLANT ENGINEER Legal Sex Female 7:25 AM CDT Gender Identity Not on file Sexual Orientation Not on file 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 [address] Nanda Ritter, PhD, LP 295 [place] [address] 03/08/2025 4:00 PM CDT Phone Visit [facility] [address] [place] [address] Bertrand Apple MD [address] [place] [address] 03/19/2025 8:00 AM CDT Telemedicine [facility] Pain Management [address] [facility] [place] [address] Nanda Ritter, PhD, LP 295 [place] [address] 04/02/2025 8:00 AM CDT Telemedicine [facility] Pain Management [address] [place] [address] Nanda Ritter, PhD, LP [address] [place] [address] 04/16/2025 8:00 AM CARBON SEQUESTRATION PLANT ENGINEER Telemedicine [facility] Pain Management [address] [place] [address] Nanda Ritter, PhD, LP 295 [place] [address] 04/30/2025 8:00 AM CARBON SEQUESTRATION PLANT ENGINEER Telemedicine [facility] Pain Management [address] [place] [address] Nanda Ritter, PhD, LP [address] [place] [address] 05/14/2025 8:00 AM CARBON SEQUESTRATION PLANT ENGINEER Telemedicine [facility] Pain Management [address] [place] [address] Nanda Ritter, PhD, LP 295 [facility] [place] [address] 05/28/2025 8:00 AM CARBON SEQUESTRATION PLANT ENGINEER Telemedicine [facility] Pain Management 295 [facility]. [place] [address] Nanda Ritter, PhD, LP 295 [facility] [address] documented as of this encounter Visit Diagnoses Not on filedocumented in this encounter Additional Health Concerns Infection Onset Date Last Indicated Resolved Time ESBL - Contact (retired) Comment:Urine 02/20/14 03/06/2014 03/06/2014 01/13/2018 3:22 PM CDT MRSA Comment:10/01/2017 from urgency room in [facility] absess 10/11/2018 10/11/2018 C-Diff 08/01/2024 08/01/2024 08/11/2024 3:18 AM CARBON SEQUESTRATION PLANT ENGINEER documented as of this encounter Care Teams Service Control Operator Relationship Specialty Start Date End Date Annalee Lerma, GREEN HOUSE MANAGER, ANIMAL PATHOLOGY TEACHER [address] [place] [phone] PCP - General Nurse Practitioner 04/12/24 documented as of this encounter
--- OUTSIDE RECORDS SUMMARY | 2025-02-13 22:32 | XMS_ITS | CCD ---
Author Name Interface, [facility] Address [address] [address] Organization [facility] Address [address] [address] Care Team Providers Care Processor Inspector Name Role Phone Eva TRIVEDI, Delma Engel Unavailable Un available Allergies and Adverse Reactions Medication/Group Name Reaction Severity Date clindamycin 10/22/2023 cefdinir 10/22/2023 doxycycline 10/22/2023 prochlorperazine 10/22/2023 Sulfa (Sulfonamide Antibiotics) 10/22/2023 levofloxacin 10/22/2023 methylprednisolone Reglan 10/22/2023 Reason for Visit OV 30 MIN Medications Date Name Route Dose Frequency Instructions Start Date End Date Status Famotidine Oral orally 20.0 mg BID active Cyclobenzaprine Oral orally 10.0 mg prn active Cromolyn Oral Liquid stopped Omeprazole Oral Delayed Release Capsule active Oxycodone Oral orally 5.0 mg prn pain stopped Lorazepam Oral orally 0.5 mg .5 tablets prn active Methocarbamol Oral orally 500.0 mg prn active Ondansetron Oral active Diphenhydramine Oral active Ibuprofen Oral ac tive Problems Diagnosis Status Date of Diagnosis Resolution Date Ovarian mass Active Social History Date Name Value 09/01/2023 Sex Female
--- OUTSIDE RECORDS SUMMARY | 2025-02-13 22:33 | XMS_ITS | Encounter Summary ---
Author Organization [facility] Address [address] [place] [address] Care Team Providers Care Formula Room Worker Name Role Phone Annalee Lerma Saida MIMS, ACCOUNTANT CERTIFIED PUBLIC Primary Care Provider Encounter Details Date Type Department Care Team (Late st Contact Info) Description 05/14/2017 Correspondence [facility] [address] [place] [phone] Fredy Obando, BOLA CHIROPRACTIC PATIENT LIAB NOTIFICATION AND AGRMNT Social History Tobacco Use Types Packs/Day Years Used Date Smoking Tobacco: Former Cigarettes Q uit: 06/14/1987 Smokeless Tobacco: Never Comments:Smoke every blue mo on Alcohol Use Standard Drinks/Week Comments Yes 0 (1 standard drink = 0.6 oz pur e alcohol) socially Comments No Sex and Gender Information Value Date Recorded Sex Assigned at Female 06/18/2022 1:13 PM CUTTER WOODWIND REEDS Legal Sex Female 7:25 AM CDT Gender Identity Not on file Sexual Orientation Not on file 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 [address] Nanda Ritter, PhD, LP [address] [place] [address] 03/08/2025 4:00 PM CDT Phone Visit [facility] [address] [place] [address] Bertrand Apple MD [address] [place] [address] 03/19/2025 8:00 AM CDT Telemedicine [facility] [address] [facility] [place] [address] Nanda Ritter, PhD, LP 295 [place] [address] 04/02/2025 8:00 AM CDT Telemedicine [facility] [address] [place] [address] Nanda Ritter, PhD, LP [address] [place] [address] 04/16/2025 8:00 AM CUTTER WOODWIND REEDS Telemedicine [facility] [address] [facility] [place] [address] Nanda Ritter, PhD, LP [address] [place] [address] 04/30/2025 8:00 AM CUTTER WOODWIND REEDS Telemedicine [facility] [address] [facility] [place] [address] Nanda Ritter, PhD, LP [address] [place] [address] 05/14/2025 8:00 AM CUTTER WOODWIND REEDS [facility]icine [facility] [address] [place] [address] Nanda Ritter, PhD, LP 295 [facility] [place] [address] 05/28/2025 8:00 AM CUTTER WOODWIND REEDS [facility] [address] [facility] [place] [address] Nanda Ritter, PhD, LP 295 [place] [address] documented as of this encounter Visit Diagnoses Not on filedocumented in this encounter Additional Health Concerns Infection Onset Date Last Indicated Resolved Time ESBL - Contact (retired) Comment:Urine 02/20/14 03/06/2014 03/06/2014 01/13/2018 3:22 PM CDT MRSA Comment:10/01/2017 from urgency room in [facility] absess 10/11/2018 10/11/2018 C-Diff 08/01/2024 08/01/2024 08/11/2024 3:18 AM CUTTER WOODWIND REEDS documented as of this encounter Care Teams Formula Room Worker Relationship Specialty Start Date End Date Annalee Lerma APRN, WILLIAM [address] [place] [phone] PCP - General Nurse Practitioner 04/12/24 documented as of this encounter
--- OUTSIDE RECORDS SUMMARY | 2025-02-13 22:33 | XMS_ITS | Encounter Summary ---
Author Organization [facility] Address [address] [place] [address] Care Team Providers Care Flake Miller Wheat [employer] Oats Name Role Phone Annalee Lerma Saida MIMS, HANGING FLAGS DECORATOR Primary Care Provider Encounter Details Date Type Department Care Team (Late st Contact Info) Description 02/24/2012 [facility] [address] [place] [address] Jack Jenkins MD [address] [place] [id number] FMLA Social History Tobacco Use Types Packs/Day Years Used Date Smoking Tobacco: Former Cigarettes 1.5 10 0 06/14/1987 - 06/14/1997 Smokeless Tobacco: Never Alcohol Use Standard Drinks/Week Comments Yes 0 (1 standard drink = 0.6 oz pur e alcohol) twice a year Comments No Sex and Gender Information Value Date Recorded Sex Assigned at Female 06/18/2022 1:13 PM PSYCH NP Legal Sex Female 7:25 AM CDT Gender Identity Not on file Sexual Orientation Not on file 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 [address] Nanda Ritter, PhD, LP [address] [place] [address] 03/08/2025 4:00 PM CDT Phone Visit [facility] [address] [place] [address] Bertrand Apple MD [address] [place] [address] 03/19/2025 8:00 AM CDT [facility] Pain Management [address] [place] [address] Nanda Ritter, PhD, LP [facility] [place] [address] 04/02/2025 8:00 AM CDT Telemedicine [facility] Pain Management [address] [place] [address] Nanda Ritter, PhD, LP [facility] [place] [address] 04/16/2025 8:00 AM PSYCH NP Telemedicine [facility] Pain Management [address] [place] [address] Nanda Ritter, PhD, LP [address] [place] [address] 04/30/2025 8:00 AM PSYCH NP Telemedicine [facility] Pain Management [address] [facility] [place] [address] Nanda Ritter, PhD, LP [address] [place] [address] 05/14/2025 8:00 AM PSYCH NP Telemedicine [facility] Pain Management [address] [facility] [place] [address] Nanda Ritter, PhD, LP [address] [place] [address] 05/28/2025 8:00 AM PSYCH NP Telemedicine [facility] Pain Management [address] [facility] [address] Nanda Ritter, PhD, LP [address] [place] [address] documented as of this encounter Visit Diagnoses Not on filedocumented in this encounter Additional Health Concerns Infection Onset Date Last Indicated Resolved Time ESBL - Contact (retired) Comment:Urine 02/20/14 03/06/2014 03/06/2014 01/13/2018 3:22 PM CDT MRSA Comment:10/01/2017 from urgency room in [facility] absess 10/11/2018 10/11/2018 C-Diff 08/01/2024 08/01/2024 08/11/2024 3:18 AM PSYCH NP documented as of this encounter Care Teams Flake [employer] Wheat [employer] Oats Relationship Specialty Start Date End Date Annalee Lerma, LEGAL SUPPORT ANALYST, HANGING FLAGS DECORATOR [address] [place] [facility] [facility] [phone] PCP - General Nurse Practitioner 04/12/24 documented as of this encounter
--- OUTSIDE RECORDS SUMMARY | 2025-02-13 22:33 | XMS_ITS | Encounter Summary ---
Author Organization [facility] Address [address] [place] [address] Care Team Providers Care Patent Prosecution Paralegal Name Role Phone Annalee Lerma Saida MIMS, INFECTION CONTROL MANAGER Primary Care Provider Encounter Details Date Type Department Care Team (Late st Contact Info) Description 10/01/2017 Emergency Room External to [facility] DERM PROBLEM Social History Tobacco Use Types Packs/Day Years Used Date Smoking Tobacco: Former Cigarettes Q uit: 06/14/1987 Smokeless Tobacco: Never Comments:Smoke every blue mo on Alcohol Use Standard Drinks/Week Comments Yes 0 (1 standard drink = 0.6 oz pur e alcohol) socially Comments No Sex and Gender Information Value Date Recorded Sex Assigned at Female 06/18/2022 1:13 PM ENVIRONMENTAL CONSTRUCTION ENGINEER Legal Sex Female 7:25 AM CDT Gender Identity Not on file Sexual Orientation Not on file 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 [address] [facility] [place] [address] Nanda Ritter, PhD, LP [address] [place] [address] 03/08/2025 4:00 PM CDT Phone Visit [facility] [address] [place] [address] Bertrand Apple MD [address] [place] [address] 03/19/2025 8:[address] [facility] [address] [place] [address] Nanda Ritter, PhD, LP [address] [place] [address] 04/02/2025 8:[address] [facility] [address] [place] [address] Nanda Ritter, PhD, LP [address] [place] [address] 04/16/2025 8:00 AM ENVIRONMENTAL CONSTRUCTION ENGINEER Telemedicine [facility] [address] [place] [address] Nanda Ritter, PhD, LP [address] [place] [address] 04/30/2025 8:00 AM ENVIRONMENTAL CONSTRUCTION ENGINEER Telemedicine [facility] [address] [place] [address] Nanda Ritter, PhD, LP [address] [place] [address] 05/14/2025 8:00 AM ENVIRONMENTAL CONSTRUCTION ENGINEER Telemedicine [facility] [address] [facility] [place] [address] Nanda Ritter, PhD, LP [address] [facility] [place] [address] 05/28/2025 8:00 AM ENVIRONMENTAL CONSTRUCTION ENGINEER Telemedicine [facility] [address] [facility] [place] [address] Nanda Ritter, PhD, LP [address] [place] [address] documented as of this encounter Visit Diagnoses Not on filedocumented in this encounter Additional Health Concerns Infection Onset Date Last Indicated Resolved Time ESBL - Contact (retired) Comment:Urine 02/20/14 03/06/2014 03/06/2014 01/13/2018 3:22 PM CDT MRSA Comment:10/01/2017 from urgency room in [facility] absess 10/11/2018 10/11/2018 C-Diff 08/01/2024 08/01/2024 08/11/2024 3:18 AM ENVIRONMENTAL CONSTRUCTION ENGINEER documented as of this encounter Care Teams Patent Prosecution Paralegal Relationship Specialty Start Date End Date Annalee Lerma, BYPRODUCTS MAKER, INFECTION CONTROL MANAGER [address] [place] [phone] PCP - General Nurse Practitioner 04/12/24 documented as of this encounter
--- OUTSIDE RECORDS SUMMARY | 2025-02-13 22:33 | XMS_ITS | Clinical Summary ---
Author Organization [facility] Address [facility] [place] [address] Care Team Providers Care Management Accounts Manager Name Role Phone Bertrand Apple MD Primary Care Provider [phone] Allergies Active Allergy Reactions Criticality Noted Date Comments Cefdinir Itching 09/22/2023 Clindamycin GI Upset 05/27/2018 GI upset Doxycycline Vomiting 05/10/2023 Within 20 minutes, had nonstop vomiting Hydromorphone Other - Describe In Comment Field Medium 01/02/2020 Patient does not metabolize well. Levofloxacin Edema 05/08/2020 Methylprednisolone *Unknown 09/22/2023 Metoclopramide *Unknown 05/24/2017 Akathesia, per patient. Metoclopramide Hcl Other - Describe In Comment Field 10/22/2023 Unlisted Allergen (Include Detail In Comments) Other - Describe In Comment Field 01/13/2021 Patient has impaired liver metabolism of medications-risk of toxicity Prochlorperazine Psychosis,*Unknown ,Other - Describe In Comment Field 10/15/2003 akathesia, wigging out [place] Angioedema High 12/30/2020 Sulfa (Sulfonamide Antibiotics) Contact Dermatitis,Hives High 12/28/2012 Medications diphenhydrAMINE (BENADRYL) 12.5 mg/5 mL elixir Take 6.25 mg/2.5 ml (0.5 unit dose cup) by mouth in the morning and at noon, and 12.5 mg/5 ml (1 unit dose cup) in the evening and at bedtime. Active LORazepam (ATIVAN) 0.5 mg tab Take 0.25 mg by mouth 2 times daily if needed. 09/03/19 24 Active famotidine (PEPCID) 20 mg tablet Take 20 mg by mouth two times daily. Active ondansetron (ZOFRAN ODT) 4 mg disintegrating tabletIndications: Viral gastroenteritis Place 1 Tablet (4 mg) on the tongue every 8 hours if needed for Nausea/Vomiting . 10 Tablet 07/20/19 25 Active loperamide (IMODIUM) 2 mg capsuleIndications :Viral gastroenteritis Take 2 capsules (4mg) orally with 1st loose stool, then 1 capsule (2mg) with other loose stools. Max 16 mg in 24 hrs. 40 Capsule 07/20/19 25 Active diclofenac (VOLTAREN) 75 mg delayed-release tabletIndications: Polyarthralgia Take 1 Tablet (75 mg) by mouth two times daily with meals. 60 Tablet 3 07/27/19 25 Active ergocalciferol (vitamin D2) 50 mcg (2,000 unit) capIndications:Vit myles D deficiency Take 1 Capsule by mouth once daily. 90 Capsule 1 11/04/19 25 Active canakinumab (PF) 150 mg/mL solnIndications:Cr yopyrin-associated periodic syndrome (HC) Inject 150 mg subcutaneous every 8 weeks. 1 mL 3 12/08/19 25 Active metFORMIN 500 mg tablet Take 500 mg by mouth. 07/03/19 25 026 Active traMADoL 50 mg tabletIndications: Cellulitis of skin Take 1 Tablet (50 mg) by mouth every 6 hours if needed for Pain. 10 Tablet 12/09/19 25 Active anakinra (KINERET) 100 mg/0.67 mL syringeIndications :Cryopyrin-associa sahara periodic syndrome (HC) Inject 0.67 mL (100 mg) subcutaneous once daily. 20.1 mL 2 01/23/20 25 Active anakinra (KINERET) 100 mg/0.67 mL syringeIndications :Cryopyrin-associa sahara periodic syndrome (HC) Inject 0.67 mL (100 mg) subcutaneous once daily for 90 doses. 20.1 mL 2 01/12/20 25 025 Discontin ued(Reord er (E-cancel not sent)) Active Problems Problem Noted Date Diagnosed Date Hidradenitis suppurativa 08/03/2024 Vitamin D deficiency 08/03/2024 Class 3 severe obesity with body mass index (BMI) of 45.0 to 49.9 in adult 08/03/2024 Fatigue 08/03/2024 Elevated sed rate 08/03/2024 IFG (impaired fasting glucose) 08/03/2024 Post-traumatic stress disorder, chronic 03/25/20 24 Tobacco user 03/25/2024 Menorrhagia 03/25/2024 Mass of ovary 09/20/2023 Right ovarian cyst 08/26/2023 Gastrojejunal ulcer 07/21/2023 Intermittent asthma 07/21/2023 Gastroesophageal reflux disease 07/21/2023 Liver disorder 01/21/2022 Overview (01/21/2022): Very slow metabolizer of any hepatic cleared medications. 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 If admitted with flare, IV benadryl, IV zofran and IV famotidine works best to stabilize mast cells and improve sxs. Diffuse arthralgia 08/28/2021 Nausea with vomiting, unspecified 08/28/2021 Itching 08/28/2021 PCOS (polycystic ovarian syndrome) 08/06/2021 Overview (03/25/2024): Diagnosed when 18 , absense of cycles and irregualr cycle Morbid obesity 01/12/2016 Extended spectrum beta lactamase (ESBL) resistan ce 03/06/2014 Overview (03/25/2024): Pt meets criteria for discontinuation of isolation 01/14/18 Urine 02/20/14 Stress incontinence 02/23/2014 Overview (03/25/2024): Stress incontinence, s/p midurethral sling procedure 02/2014 Herpes labialis 05/11/2012 Encounters Date Type Department Care Team Description 01/19/2025 Telephone [facility] [address] [address] Luis Carrillo MD Error-please disregard 01/08/2025 Telephone [facility] [address] [address] Luis Carrillo MD Medication Management (Prior Auth) 12/29/2024 Telephone [facility] [address] [address] Luis Carrillo MD Questions (Verify Patient's insurance) 12/08/2024 12:50 PM CDT Office Visit [facility] [address] [place] [address] Nazario Nur MD Derm Problem (Swollen lumps over pubic area and left labia. Recent diagnosis hidradenitis suppurativa.) 12/08/2024 12:10 PM CDT Telemedicine [facility] [address] [place] [address] Sandra Wolf PA Telehealth 12/08/2024 Travel 12/07/2024 4:30 PM CDT Office Visit [facility] [address] [address] Luis Carrillo MD Follow Up 12/07/2024 Travel from Last 3 Months Immunizations Immunization Administration Dates Next Due COVID-19 vaccine ([employer] 30mcg/0.3mL) 12YO+ REBECCA-SUCROSE JUANIS FRANCIS 08/29/2021() Pneumococcal Poly,23-Valent (Pneumovax) 08/30/19 22() Td (Age >=7 Years) 07/15/1997 Family History Medical History Relation Name Comments Other Brother hydroadenitis Esophageal cancer Father Parkinsonism Maternal Grandfather No Known Problems Maternal Grandmother Other Mother polio Ovarian cysts Mother Graves' disease Other cousin Testicular cancer Paternal Grandfather Diabetes type I Paternal Grandmother Ovarian cysts Sister Relation Name Status Comments Brother Alive Father Maternal Grandfather Maternal Grandmother Alive Mother Alive Other cousin Paternal Grandfather Paternal Grandmother Sister Alive Social History Tobacco Use Types Packs/Day Years Used Date Smoking Tobacco: Former Cigarettes Q uit: 08/13/1995 Smokeless Tobacco: Never Tobacco Cessation:Counseling Given: Not Answered Alcohol Use Standard Drinks/Week Comments Not Currently 0 (1 standard drink = 0.6 oz pur e alcohol) PHQ-2 Answer Date Recorded PHQ-2 TOTAL SCORE 0 07/13/2024 Social Connections Answer Date Recorded Do you often feel lonely or isolated from those around you? 0 07/11/2024 Financial Resource Strain Answer Date R ecorded Difficulty of Paying Living Expenses 2 07/11/2024 Difficulty of Paying Living Expenses 1 07/11/2024 Food Insecurity Answer Date Recorded Do you worry your food will run out before you are able to buy more? 1 07/11/2024 Transportation Needs Answer Date Record ed Does lack of transportation keep you from medica l appointments? 1 07/11/2024 Does lack of transportation keep you from work, meetings or getting things that you need? 1 07/11/2024 Housing Stability Answer Date Recorded What is your housing situation today? 1 07/11/2024 Interpersonal Safety Answer Date Record ed Are you being hit, kicked, p ushed or yelled at (see row info)? No 07/07/2024 Interpersonal Safety Abuse 12 - 18 Not on file 07/07/2024 Interpersonal Safety Ambulatory Vulnerability No t on file 07/07/2024 Utilities Answer Date Recorded Do you have trouble paying f or utilities (for example, heat, electricity, water, phone)? 1 07/11/2024 Comments No Sex and Gender Information Value Date Recorded Sex Assigned at Not on file Legal Sex Female 10:56 AM CDT Gender Identity Not on file Sexual Orientation Not on file Obstetrics History Last Filed Vital Signs Vital Sign Reading Time Taken Comments Blood Pressure 141/63 12/08/2024 1:03 PM CDT Pulse 76 12/08/2024 1:03 PM CDT Temperature 36.8 C (98.2 F) 12/08/2024 1:03 PM CDT Respiratory Rate 20 12/08/2024 1:03 PM CDT Oxygen Saturation 96% 12/08/2024 1:03 PM CDT Inhaled Oxygen Concentration - - Weight 125.4 kg (276 lb 8 oz) 12/08/2024 1:03 PM CDT Height 160 cm (5' 3) 12/07/2024 4:26 PM CDT Body Mass Index 48.98 12/07/2024 4:26 PM CDT Plan of Treatment Upcoming Encounters Date Type Department Care Team (Late st Contact Info) Description 03/12/2025 4:30 PM CDT Office Visit [facility] [address] [address] [place] [address] [place] [address] Health Maintenance Due Date Last Done Comments COVID-19 vaccine series (#1) 1979 HIV for age 15-65 1989 Hepatitis C screening for ag e 18-79 02/02/1992 Hepatitis B series for 19+ ( 1 of 3 - 19+ 3-dose series) 1993 Zoster (shingles) series for age 50+ (1 of 2) 1993 Pap test for age 21-65 1995 Tetanus booster 07/15/2007 07/15/1997 Colonoscopy through age 75 2019 Lipids for age 45-75 2019 Mammogram for age 45-75 2019 Pneumococcal series for age 50+ (1 of 1 - PCV) 02/02/2024 Influenza Vaccine (#1) 2025 Depression screening for age 12+ 07/13/2025 07/13/19 25, 01/21/2022 BMI (ht and wt on same day) for age 18+ 12/07/2025 12/07/2024, 09/27/2024, 08/14/2024, Additional history exists RSV vaccine for adults or (1 - 1-dose 75+ series) 2049 Additional Health Concerns Infection Onset Date Last Indicated MRSA Clearance Comment:Hx MRSA 10/11/18 @ [facility] 09/23/2023 09/23/[address] [place] [address] [id number] [facility] [place] [address] Advance Directives * Full Code (Latest Code Status on File) Date Activated Date Inactivated Comments 09/23/2023 8:49 AM 09/24/2023 5:03 PM Question Answer Comments Code Status Discussion: Unable to Assess Preferences, Provider to review later * Full Code Date Activated Date Inactivated Comments 08/28/2021 5:21 PM 08/29/2021 1:22 PM Question Answer Comments Code Status Discussion: Reviewed Preferences Care Teams Management Accounts Manager Relationship Specialty Start Date End Date Bertrand Apple MD [address] [place] [phone] PCP - General 12/07/24
--- OUTSIDE RECORDS SUMMARY | 2025-02-13 22:33 | XMS_ITS | Encounter Summary ---
Author Organization [facility] Address [address] [place] [address] Care Team Providers Care Java Lead Developer Name Role Phone Annalee Lerma APRN, CNP Primary Care Provider Encounter Details Date Type Department Care Team (Late Contact Info) Description 05/24/[address] [address] Ailyn Tom APRN, STRAIGHT TRUCK DRIVER FMLA Social History Tobacco Use Types Packs/Day Years Used Date Smoking Tobacco: Former Cigarettes Q uit: 06/14/1987 Smokeless Tobacco: Never Comments:Smoke every blue mo on Alcohol Use Standard Drinks/Week Comments Yes 0 (1 standard drink = 0.6 oz pur e alcohol) socially Comments No Sex and Gender Information Value Date Recorded Sex Assigned at Female 06/18/2022 1:13 PM CORPORATE QUALITY ASSURANCE MANAGER Legal Sex Female 7:25 AM CDT Gender Identity Not on file Sexual Orientation Not on file 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 [address] aNnda Ritter, PhD, LP [address] [place] [address] 03/08/2025 4:00 PM CDT Phone Visit [facility] [address] [place] [address] Bertrand Apple MD [address] [place] [address] 03/19/2025 8:00 AM CDT Telemedicine [facility] [address] [place] [address] Nanda Ritter, PhD, LP [address] [place] [address] 04/02/2025 8:00 AM CDT Telemedicine [facility] [address] [facility] [place] [address] Nanda Ritter, PhD, LP [address] [place] [address] 04/16/2025 8:00 AM CORPORATE QUALITY ASSURANCE MANAGER Telemedicine [facility] [address] [place] [address] Nanda Ritter, PhD, LP [facility] [place] [address] 04/30/2025 8:00 AM CORPORATE QUALITY ASSURANCE MANAGER Telemedicine [facility] [address] [place] [address] Nanda Ritter, PhD, LP [facility] [place] [address] 05/14/2025 8:00 AM CORPORATE QUALITY ASSURANCE MANAGER Telemedicine [facility] [address] [facility] [place] [address] Nanda Ritter, PhD, LP [address] [facility] [place] [place] [address] 05/28/2025 8:00 AM CORPORATE QUALITY ASSURANCE MANAGER Telemedicine [facility] [address] [facility] [place] [address] Nanda Ritter, PhD, LP [address] [place] [address] documented as of this encounter Visit Diagnoses Not on filedocumented in this encounter Additional Health Concerns Infection Onset Date Last Indicated Resolved Time ESBL - Contact (retired) Comment:Urine 02/20/14 03/06/2014 03/06/2014 01/13/2018 3:22 PM CDT MRSA Comment:10/01/2017 from urgency room in [facility] absess 10/11/2018 10/11/2018 C-Diff 08/01/2024 08/01/2024 08/11/2024 3:18 AM CORPORATE QUALITY ASSURANCE MANAGER documented as of this encounter Care Teams Java Lead Developer Relationship Specialty Start Date End Date Annalee Lerma APRN, STRAIGHT TRUCK DRIVER [address] [place] [phone] PCP - General Nurse Practitioner 04/12/24 documented as of this encounter
--- OUTSIDE RECORDS SUMMARY | 2025-02-13 22:33 | XMS_ITS | Encounter Summary ---
Author Organization [facility] Address [address] [place] [address] Care Team Providers Care Firearms Inspector Name Role Phone Annalee Lerma Saida MIMS, BOTTLE MACHINE OPERATOR Primary Care Provider Encounter Details Date Type Department Care Team (Late st Contact Info) Description 02/04/2012 Consent for Procedure/Treatme nt [facility] Department INFORMED CONSENT RECORD Social History Tobacco Use Types Packs/Day Years Used Date Smoking Tobacco: Former Cigarettes 1.5 10 0 06/14/1987 - 06/14/1997 Smokeless Tobacco: Never Alcohol Use Standard Drinks/Week Comments Yes 0 (1 standard drink = 0.6 oz pur e alcohol) twice a year Comments No Sex and Gender Information Value Date Recorded Sex Assigned at Female 06/18/2022 1:13 PM BINDERY ASSISTANT Legal Sex Female 7:25 AM CDT Gender Identity Not on file Sexual Orientation Not on file 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 [address] Nanda Ritter, PhD, LP [address] [place] [address] 03/08/2025 4:00 PM CDT Phone Visit [facility] [address] [place] [address] Bertrand Apple MD [address] [place] [address] 03/19/2025 8:00 AM CDT Telemedicine [facility] [address] [facility] [place] [address] Nanda Ritter, PhD, LP [address] [place] [address] 04/02/2025 8:00 AM CDT Telemedicine [facility] [address] [facility] [place] [address] Nanda Ritter, PhD, LP [address] [place] [address] 04/16/2025 8:00 AM BINDERY ASSISTANT Telemedicine [facility] [address] [place] [address] Nanda Ritter, PhD, LP [address] [place] [address] 04/30/2025 8:00 AM BINDERY ASSISTANT Telemedicine [facility] [address] [place] [address] Nanda Ritter, PhD, LP [address] [place] [address] [place] [address] 05/14/2025 8:00 AM BINDERY ASSISTANT Telemedicine [facility] [address] [facility] [place] [id number] Nanda Ritter, PhD, LP [address] [place] [address] 05/28/2025 8:00 AM BINDERY ASSISTANT Telemedicine [facility] [address] [facility] [place], [place] [id number] Nanda Ritter, PhD, LP [address] [place] [phone] documented as of this encounter Visit Diagnoses Not on filedocumented in this encounter Additional Health Concerns Infection Onset Date Last Indicated Resolved Time ESBL - Contact (retired) Comment:Urine 02/20/14 03/06/2014 03/06/2014 01/13/2018 3:22 PM CDT MRSA Comment:10/01/2017 from urgency room in [facility] absess 10/11/2018 10/11/2018 C-Diff 08/01/2024 08/01/2024 08/11/2024 3:18 AM BINDERY ASSISTANT documented as of this encounter Care Teams Firearms Inspector Relationship Specialty Start Date End Date Annalee Lerma, TONSORIAL ARTIST, BOTTLE MACHINE OPERATOR [address] [place] [phone] PCP - General Nurse Practitioner 04/12/24 documented as of this encounter
--- OUTSIDE RECORDS SUMMARY | 2025-02-13 22:33 | XMS_ITS | Encounter Summary ---
Author Organization [facility] Address [address] [place] [address] Care Team Providers Care Export Packer Name Role Phone DemiYannick terrymarielena Mccracken APRN, ENTRY LEVEL PROJECT COORDINATOR Primary Care Provider Encounter Details Date Type Department Care Team (Latest Contact Info) Description 03/12/1999 Orders Only Dorian Lofton [place], [place] Social History Tobacco Use Types Packs/Day Years Used Date Smoking Tobacco: Never Assessed Comments Unknown Sex and Gender Information Value Date Recorded Sex Assigned at Female 06/18/2022 1:13 PM ELECTRIC REFRIGERATOR SERVICER Legal Sex Female 7:25 AM CDT Gender Identity Not on file Sexual Orientation Not on file documented as of this encounter Plan of Treatment Upcoming Encounters Date Type Department Care Team (Late st Contact Info) Description 02/26/2025 8:00 AM CDT Telemedicine [facility] [address] [facility] [place], [place] [phone] Nanda Ritter, PhD, LP [address] [place] [address] 03/08/2025 4:00 PM CDT Phone Visit [facility] [address] [place] [address] Bertrand Apple MD [address] [place] [address] 03/19/2025 8:00 AM CDT Telemedicine [facility] [address] [place] [address] Nanda Ritter, PhD, LP [address] [place] [address] 04/02/2025 8:00 AM CDT Telemedicine [facility] [address] [facility] [place] [address] Nanda Ritter, PhD, LP [facility] [place] [address] 04/16/2025 8:00 AM ELECTRIC REFRIGERATOR SERVICER Telemedicine [facility] [address] [place] [address] Nanda Ritter, PhD, LP [address] [place] [address] 04/30/2025 8:00 AM ELECTRIC REFRIGERATOR SERVICER Telemedicine [facility] [address] [facility] [place] [address] Nanda Ritter, PhD, LP [address] [place] [address] 05/14/2025 8:00 AM ELECTRIC REFRIGERATOR SERVICER Telemedicine [facility] [address] [facility] [place] [address] Nanda Ritter, PhD, LP [address] [place] [address] 05/28/2025 8:00 AM ELECTRIC REFRIGERATOR SERVICER Telemedicine [facility] Pain Management [address] [facility] [place] [address] Nanda Ritter, PhD, LP [address] [place], [place] [phone] documented as of this encounter Visit Diagnoses Not on filedocumented in this encounter Additional Health Concerns Infection Onset Date Last Indicated Resolved Time ESBL - Contact (retired) Comment:Urine 02/20/14 03/06/2014 03/06/2014 01/13/2018 3:22 PM CDT MRSA Comment:10/01/2017 from urgency room in RLQ absess 10/11/2018 10/11/2018 C-Diff 08/01/2024 08/01/2024 08/11/2024 3:18 AM ELECTRIC REFRIGERATOR SERVICER documented as of this encounter Care Teams Export Packer Relationship Specialty Start Date End Date Annalee Lerma APRN, ENTRY LEVEL PROJECT COORDINATOR [address] [place] [facility] [place] [phone] PCP - General Nurse Practitioner 04/12/24 documented as of this encounter
--- OUTSIDE RECORDS SUMMARY | 2025-02-13 22:33 | XMS_ITS | Encounter Summary ---
Author Organization [facility] Address [address] [place] [address] Care Team Providers Care Cooperative Manager Name Role Phone DemiYannick terrymarielena Mccracken APRN, OPTIC FIBRE DRAWER Primary Care Provider Encounter Details Date Type Department Care Team (Latest Contact Info) Description 01/22/1999 Orders Only Dorian Lofton [place], [place] Social History Tobacco Use Types Packs/Day Years Used Date Smoking Tobacco: Never Assessed Comments Unknown Sex and Gender Information Value Date Recorded Sex Assigned at Female 06/18/2022 1:13 PM AIR COMMODORE Legal Sex Female 7:25 AM CDT Gender Identity Not on file Sexual Orientation Not on file documented as of this encounter Plan of Treatment Upcoming Encounters Date Type Department Care Team (Late st Contact Info) Description 02/26/2025 8:00 AM CDT Telemedicine [facility] [address] [place], [place] [phone] Nanda Ritter, PhD, LP [address] [place] [address] 03/08/2025 4:00 PM CDT Phone Visit [facility] [address] [place] [address] Bertrand Apple MD [address] [place] [address] 03/19/2025 8:00 AM CDT Telemedicine [facility] Pain Management [address] [place] [address] Nanda Ritter, PhD, LP [address] [place] [address] 04/02/2025 8:00 AM CDT Telemedicine [facility] Pain Management [address] [facility] [place] [address] Nanda Ritter, PhD, LP [facility] [place] [address] 04/16/2025 8:00 AM AIR COMMODORE Telemedicine [facility] Pain Management [address] [place] [address] Nanda Ritter, PhD, LP [address] [place] [address] 04/30/2025 8:00 AM AIR COMMODORE Telemedicine [facility] Pain Management [address] [place] [address] Nanda Ritter, PhD, LP [address] [place] [address] 05/14/2025 8:00 AM AIR COMMODORE Telemedicine [facility] Pain Management [address] [facility] [place] [address] Nanda Ritter, PhD, LP [address] [place] [address] 05/28/2025 8:00 AM AIR COMMODORE Telemedicine [facility] Pain Management [address] [place] [address] Nanda Ritter, PhD, LP [address] [place], [place] [phone] documented as of this encounter Visit Diagnoses Not on filedocumented in this encounter Additional Health Concerns Infection Onset Date Last Indicated Resolved Time ESBL - Contact (retired) Comment:Urine 02/20/14 03/06/2014 03/06/2014 01/13/2018 3:22 PM CDT MRSA Comment:10/01/2017 from urgency room in RLQ absess 10/11/2018 10/11/2018 C-Diff 08/01/2024 08/01/2024 08/11/2024 3:18 AM AIR COMMODORE documented as of this encounter Care Teams Cooperative Manager Relationship Specialty Start Date End Date Annalee Lerma APRN, OPTIC FIBRE DRAWER [address] [place] [phone] PCP - General Nurse Practitioner 04/12/24 documented as of this encounter
--- OUTSIDE RECORDS SUMMARY | 2025-02-13 22:33 | XMS_ITS | Encounter Summary ---
Author Organization [facility] Address [address] [place] [address] Care Team Providers Care Public Relations Player Name Role Phone DemiYannick terrymarielena Mccracken APRN, WILLIAM Primary Care Provider Encounter Details Date Type Department Care Team (Latest Contact Info) Description 09/22/1999 Orders Only Endy Jaramillo MD [address] [place] [id number] Social History Tobacco Use Types Packs/Day Years Used Date Smoking Tobacco: Never Assessed Comments Unknown Sex and Gender Information Value Date Recorded Sex Assigned at Female 06/18/2022 1:13 PM ELEMENTARY SPANISH TEACHER Legal Sex Female 7:25 AM CDT Gender Identity Not on file Sexual Orientation Not on file documented as of this encounter Plan of Treatment Upcoming Encounters Date Type Department Care Team (Late st Contact Info) Description 02/26/2025 8:00 AM CDT Telemedicine [facility] Pain Management [address] [facility] [place], [place] [phone] Nanda Ritter, PhD, LP 295 [place] [address] 03/08/2025 4:00 PM CDT Phone Visit [facility] [address] [place] [address] Bertrand Apple MD [address] [place] [address] 03/19/2025 8:00 AM CDT Telemedicine [facility] Pain Management [address] [place] [address] Nanda Ritter, PhD, LP [address] [place] [address] 04/02/2025 8:00 AM CDT [facility] Pain Management [address] [facility] [place] [address] Nanda Ritter, PhD, LP [address] [place] [address] 04/16/2025 8:00 AM ELEMENTARY SPANISH TEACHER Telemedicine [facility] Pain Management [address] [facility] [place] [address] Nanda Ritter, PhD, LP [address] [place] [address] 04/30/2025 8:00 AM ELEMENTARY SPANISH TEACHER Telemedicine [facility] Pain Management [address] [facility] [place] [address] Nanda Ritter, PhD, LP [facility] [place] [address] 05/14/2025 8:00 AM ELEMENTARY SPANISH TEACHER [facility] Pain Management [address] [place] [address] Nanda Ritter, PhD, LP [address] [place] [address] 05/28/2025 8:00 AM ELEMENTARY SPANISH TEACHER Telemedicine [facility] Pain Management [address] [facility] [place], [place] [phone] Nanda Ritter, PhD, LP [address] [place], [place] [phone] documented as of this encounter Visit Diagnoses Not on filedocumented in this encounter Additional Health Concerns Infection Onset Date Last Indicated Resolved Time ESBL - Contact (retired) Comment:Urine 02/20/14 03/06/2014 03/06/2014 01/13/2018 3:22 PM CDT MRSA Comment:10/01/2017 from urgency room in RLQ absess 10/11/2018 10/11/2018 C-Diff 08/01/2024 08/01/2024 08/11/2024 3:18 AM ELEMENTARY SPANISH TEACHER documented as of this encounter Care Teams Public Relations Player Relationship Specialty Start Date End Date Annalee Lerma, MILK POWDER GRINDER, BATTERY HAND [address] [place] [facility] [place] [phone] PCP - General Nurse Practitioner 04/12/24 documented as of this encounter
--- OUTSIDE RECORDS SUMMARY | 2025-02-13 22:33 | XMS_ITS | Encounter Summary ---
Author Organization [facility] Address [address] [place] [address] Care Team Providers Care Back Hanger Name Role Phone DemiYannick terrymarielena Mccracken APRN, WILLIAM Primary Care Provider Encounter Details Date Type Department Care Team (Latest Contact Info) Description 03/29/1998 Orders Only Endy Jaramillo MD [address] [place] [id number] Social History Tobacco Use Types Packs/Day Years Used Date Smoking Tobacco: Never Assessed Comments Unknown Sex and Gender Information Value Date Recorded Sex Assigned at Female 06/18/2022 1:13 PM PROPERTY LOSS INSURANCE CLAIM ADJUSTER Legal Sex Female 7:25 AM CDT Gender Identity Not on file Sexual Orientation Not on file documented as of this encounter Plan of Treatment Upcoming Encounters Date Type Department Care Team (Late st Contact Info) Description 02/26/2025 8:00 AM CDT Telemedicine [facility] Pain Management [address] [facility] [place], [place] [phone] Nanda Ritter, PhD, LP 295 [place] [address] 03/08/2025 4:00 PM CDT Phone Visit [facility] [address] [place] [address] Bertrand Apple MD [address] [place] [address] 03/19/2025 8:00 AM CDT Telemedicine [facility] Pain Management [address] [place] [address] Nanda Ritter, PhD, LP [address] [place] [address] 04/02/2025 8:00 AM CDT [facility] Pain Management [address] [facility] [place] [address] Nanda Ritter, PhD, LP [address] [place] [address] 04/16/2025 8:00 AM PROPERTY LOSS INSURANCE CLAIM ADJUSTER Telemedicine [facility] Pain Management [address] [facility] [place] [address] Nanda Ritter, PhD, LP [address] [place] [address] 04/30/2025 8:00 AM PROPERTY LOSS INSURANCE CLAIM ADJUSTER Telemedicine [facility] Management [address] [facility] [place] [address] Nanda Ritter, PhD, LP [facility] [place] [address] 05/14/2025 8:00 AM PROPERTY LOSS INSURANCE CLAIM ADJUSTER [facility] Pain Management [address] [place] [address] Nanda Ritter, PhD, LP [address] [place] [address] 05/28/2025 8:00 AM PROPERTY LOSS INSURANCE CLAIM ADJUSTER Telemedicine [facility] [address] [facility] [place], [place] [phone] Nanda Ritter, PhD, LP [address] [place], [place] [phone] documented as of this encounter Visit Diagnoses Not on filedocumented in this encounter Additional Health Concerns Infection Onset Date Last Indicated Resolved Time ESBL - Contact (retired) Comment:Urine 02/20/14 03/06/2014 03/06/2014 01/13/2018 3:22 PM CDT MRSA Comment:10/01/2017 from urgency room in RLQ absess 10/11/2018 10/11/2018 C-Diff 08/01/2024 08/01/2024 08/11/2024 3:18 AM PROPERTY LOSS INSURANCE CLAIM ADJUSTER documented as of this encounter Care Teams Back Hanger Relationship Specialty Start Date End Date Annalee Lerma, HARD CANDY BATCH MIXER, CNA CAREGIVER [address] [place] [phone] PCP - General Nurse Practitioner 04/12/24 documented as of this encounter
--- OUTSIDE RECORDS SUMMARY | 2025-02-13 22:33 | XMS_ITS ---
Author Name Interface, [id number] lity Address [address] [facility] [address] [place] [address] [facility] Address [address] [place] [address] Allergies and Adverse Reactions Medication/Group Name Reaction Severity Date clindamycin 10/22/2023 cefdinir 10/22/2023 doxycycline 10/22/2023 prochlorperazine 10/22/2023 Sulfa (Sulfonamide Antibiotics) 10/22/2023 levofloxacin 10/22/2023 methylprednisolone Reglan 10/22/2023 Plan Date Type Value 10/22/2023 APPOINTMENT OV 30 MIN 10/08/2023 APPOINTMENT POST OP 30 MIN 09/23/2023 APPOINTMENT SURGERY 1 HR 09/20/2023 APPOINTMENT OUTSIDE TEST 5 M IN 09/07/2023 APPOINTMENT OUTSIDE TEST 5 M IN 09/01/2023 APPOINTMENT DIRECTOR OF AUTOMATION R OVARIAN CYS T 09/01/2023 APPOINTMENT DIRECTOR OF AUTOMATION R OVARIAN CYS T 09/01/2023 APPOINTMENT LAB 15 MIN 09/01/2023 APPOINTMENT NEW PT CONSULT 6 0 MIN 09/07/[address] abdomen/pelvi s w/ contrast Reason for Visit OV 30 MIN Encounters Date Name 09/01/2023 Ovarian mass Diagnostic Results Date Type Test Units Lower Limit Upper Limit Result Flag Comments Status Ordered By Specimen Source Lab Address 10/12 Misc other lab See oral surgery physician d Medications Date Name Route Dose Frequency Instructions [...] mass Active Vital Signs Date Type Value 09/01/2023 BMI 49.42 09/01/2023 Height 64.00 09/01/2023 Weight 287.90 09/01/2023 Pain Scale 5.00 09/01/2023 BSA 2.28 09/01/2023 Oxygen Saturation 99.00 09/01/2023 Respiratory Rate 16.00 09/01/2023 Heart Beat 86.00 09/01/2023 Body Temperature 97.80 09/01/2023 Intravascular Systolic 117 09/01/2023 Intravascular Diastolic 70 10/08/2023 BSA 2.30 10/08/2023 BMI 50.29 10/08/2023 Height 64.00 10/08/2023 Weight 293.00 10/08/2023 Pain Scale 10.00 10/08/2023 Intravascular Systolic 132 10/08/2023 Intravascular Diastolic 74 10/08/2023 Oxygen Saturation 98.00 10/08/2023 Respiratory Rate 19.00 10/08/2023 Body Temperature 97.60 10/08/2023 Heart Beat 72.00 10/22/2023 Body Temperature 97.60 10/22/2023 Heart Beat 83.00 10/22/2023 Respiratory Rate 16.00 10/22/2023 Oxygen Saturation 98.00 10/22/2023 Intravascular Systolic 104 10/22/2023 Intravascular Diastolic 76 10/22/2023 Pain Scale 6.00 10/22/2023 Height 64.00 Notes Section * FOURDRINIER MACHINE TENDER Onc Consult Note GYNECOLOGIC ONCOLOGY CONSULT Patient Name: GRACIELA HANLEY Patient : 1975 Patient Referring Physician: Dione Yost MD (Obstetrics/Gynecology) Primary GYNOncologist: Delma Velasquez (Gynecological/Oncology) Date of Service: 09/01/2023 Reason for Consult: Ovarian cyst?? History of Present Illness (Ornamental Metal Fabricator Apprentice Oncology): Graciela Hanley is a??48-year-old female [facility] with aright ovarian cyst. H/o RLQ abdominal/pelvic pain related to ovarian cyst, last CT imaging 2022 prior to recent imaging. Was seen in ED for possible vulvar cellulitis 2/16/24. Has been seen several times over the past 2months for follow up by CRIME SCENE PHOTOGRAPHER.??CT scan was performed with no??abscess identified,??however a leftadnexal multiloculated lesion was noted.?? This led to subsequent workup with pelvic ultrasound andtumor markers. Has been symptomatic - having significant GI related symptoms recently (bloating, indigestion, heartburn, intermittent episodes of emesis). Difficulty with bowel movements, experiences severe pelvic pressure with bowel movements. H/o multiple UTIs recently. Notices urinary urgency. Noticing a lot pelvic pressure recently.? Genetic Testing (Ornamental Metal Fabricator Apprentice Oncology): NA Review of Systems: A complete 14-point review of systems is negative except as noted in the above history of present illness. Past [...] - isn't sure if there was aninfection?? 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 Menarche: 10 years old Irregular menses Last pap smear:??2019 normal per patient report H/o OCP use: Yes Sexually active No history of abnormal pap smears Allergies# Reglan, Sulfa (Sulfonamide Antibiotics), cefdinir, clindamycin, doxycycline, levofloxacin, methylprednisolone and prochlorperazine Medications: * Lorazepam Oral 0.5 mg orally .5 tablets prn * Omeprazole Oral Delayed Release Capsule * Benadryl (Diphenhydramine Oral) * Ondansetron Oral * Cyclobenzaprine Oral 10 mg orally prn * Ibuprofen Oral * Methocarbamol Oral 500 mg orally prn * Famotidine Oral 20 mg orally BID Family History: Throat cancer-father Colon cancer-paternal grandfather [...] for repeat screening Vital Signs: Blood pressure: 117/70, Sitting, R arm, Wrist, Pulse: 86, Temperature: 97.8 F, Respirations: 16, O2sat: 99%, At Rest, Room Air, Pain Scale: 5, Height: 64 in, Weight: 287.9 lb, BSA: 2.28, BMI: 49.42 kg/m2 Physical Exam (Ornamental Metal Fabricator Apprentice Oncology): General: appears well and in no apparent distress, alert and oriented x3 HEENT: sclerae white, extraocular movements intact, no cervical or supraclavicular lymphadenopathy?? Respiratory: ??normal respiratory effort Heart: peripheral perfusion normal Abdomen: soft, nondistended, nontender to palpation and without masses. no rebound or guarding.?? Lower extremities: no edema in bilateral lower extremities, non-tender to palpation?? Neuro: CNII-XII grossly intact, moving all extremities without difficulty?? Psych: appropriate mood and affect?? Pelvic: normal external genitalia; the left labia majora is larger in size with no erythema bruising or fluctuance. vagina without nodularity or lesions, cervix surgically absent, physiologic discharge. Bimanual: no adnexal masses or tenderness palpated on exam, exam limited by body habitus?? Laboratory Data: 08/11/23 CA-125, CEA, CA 19-9 within normal limits ? Imaging: Ultrasound 08/12/23?? Measurements and comments [...] EXAM: CT ABDOMEN PELVIS W CONTRAST LOCATION: [facility] DATE/TIME: 08/12/2022 3:38 PM INDICATION: Right sided [...] Problems: * Ovarian mass Assessment & Plan (Ornamental Metal Fabricator Apprentice Oncology): Graciela Hanley is a??48-year-old female [facility] with aright ovarian cyst (unclear laterality). Ultrasound notable for??9.4 x 5.7 x 8.0 complex cystic area appearing to arise from the right ovary/adnexa with extension to the left pelvis/adnexa, multiloculated without solid component, multiple irregular septations, a few of the septations demonstrate vascularity. Tumor markers unremarkable.?? We reviewed that adnexal masses can be benign, borderline or cancerous in nature. ??She is aware that we cannot know for certain without surgical removal and a pathologic diagnosis. We discussed intraoperative frozen section and that if there is a concern for malignancy, complete staging (pelvic and para-aortic lymph node dissection, omentectomy, peritoneal biopsies) would be performed. I counseled her that frozen section is not 100% accurate and if cancer is identified unexpectedly on the final pathology, there is the risk she would need another procedure for staging. I recommended removal of both ovaries via robot assisted approach, possible cancer staging.? We reviewed the risks of surgery including pain, infection, bleeding, damage to surrounding structures or organs including bladder, ureters, bowel, blood vessels, or nerves, need for laparotomy or open incision to complete the procedure, port site or incision hernia.?? Removal of the ovaries would result in surgical menopause. Reviewed risk of scar tissue from hysterectomy which could increase risk of laparotomy, damage to nearby organs. Also reviewed the risk of need for additional procedures or blood transfusion if complications. Blood transfusions carry additional risks of transfusion reactions, damaged to lung/kidneys, fevers, . Medical risks of surgery were reviewed including anesthesia-related complications, pneumonia and blood clot/pulmonary embolism, which can be fatal. * CT Abdomen/Pelvis with IV contrast given recent upper GI symptoms?? * Plan for??robot-assisted bilateral oophorectomy, pelvic washings, possible cancer staging * Surgical consent to be signed preoperatively day of surgery. Procedure was reviewed at today's visit including risks, benefits and alternatives * PCP Clearance: Labs and EKG PRN to be ordered by PCP?? * Preoperative orders: Type and Screen, Heparin 5000U SQ, Ancef IV * Postoperative orders: OK for Oxycodone Rx/Ibuprofen Rx. No Tylenol.?? I spent 20 minutes reviewing the patient's chart (outside clinic and hospital documentation, labs and imaging) before seeing the patient today. I spent 40 minutes face to face with the patient, 35 minutes of which was spent interviewing and counseling the patient and 5 minutes examining the patient.?? Delma Velasquez MD ?? Gynecologic Oncology - [facility]?? Pain Care Management: Pain Scale: 5 Patient Care needs: Depressions Status: Was screened; Outcome positive: No; Screening Date: 09/01/2023; Screening Tool:PRIME [id number]; Total depression score: 0 Smoking Status: Smoking Tobacco : Former smoker; Smokeless Tobacco : Never used smokeless tobacco; Vaping : Never vaped Delma Velasquez MD Copy to: Dione Yost MD (Referring) Bertrand Apple MD ?? Electronically signed by Delma Velasquez MD 09/01/2023 11:05 CDT
--- OUTSIDE RECORDS SUMMARY | 2025-02-13 22:33 | XMS_ITS | Encounter Summary ---
Author Organization [facility] Address [address] [place] [address] Care Team Providers Care Slabbing Machine Operator Name Role Phone DemiYannick terrymarielena Mccracken APRN, ALTERATION MANAGER Primary Care Provider Encounter Details Date Type Department Care Team (Latest Contact Info) Description 11/20/1998 Orders Only Dorian Lofton [place], [place] Social History Tobacco Use Types Packs/Day Years Used Date Smoking Tobacco: Never Assessed Comments Unknown Sex and Gender Information Value Date Recorded Sex Assigned at Female 06/18/2022 1:13 PM STAMP ANALYST Legal Sex Female 7:25 AM CDT Gender Identity Not on file Sexual Orientation Not on file documented as of this encounter Plan of Treatment Upcoming Encounters Date Type Department Care Team (Late st Contact Info) Description 02/26/2025 8:00 AM CDT Telemedicine [facility] [address] [facility] [place], [place] [id number] Nanda Ritter, PhD, LP [address] [place] [address] 03/08/2025 4:00 PM CDT Phone Visit [facility] [address] [place] [address] Bertrand Apple MD [address] [place] [address] 03/19/2025 8:00 AM CDT Telemedicine [facility] Pain Management [address] [place] [address] Nanda Ritter, PhD, LP [address] [place] [address] 04/02/2025 8:00 AM CDT Telemedicine [facility] Pain Management [address] [facility] [place] [address] Nanda Ritter, PhD, LP [facility] [place] [address] 04/16/2025 8:00 AM STAMP ANALYST Telemedicine [facility] Pain Management [address] [place] [address] Nanda Ritter, PhD, LP [address] [place] [address] 04/30/2025 8:00 AM STAMP ANALYST Telemedicine [facility] Pain Management [address] [place] [address] Nanda Ritter, PhD, LP [address] [place] [address] 05/14/2025 8:00 AM STAMP ANALYST Telemedicine [facility] Pain Management [address] [facility] [place] [address] Nanda Ritter, PhD, LP [address] [place] [address] 05/28/2025 8:00 AM STAMP ANALYST Telemedicine [facility] Pain Management [address] [facility] [place] [address] Nanda Ritter, PhD, LP [address] [place], [place] [id number] documented as of this encounter Visit Diagnoses Not on filedocumented in this encounter Additional Health Concerns Infection Onset Date Last Indicated Resolved Time ESBL - Contact (retired) Comment:Urine 02/20/14 03/06/2014 03/06/2014 01/13/2018 3:22 PM CDT MRSA Comment:10/01/2017 from urgency room in RLQ absess 10/11/2018 10/11/2018 C-Diff 08/01/2024 08/01/2024 08/11/2024 3:18 AM STAMP ANALYST documented as of this encounter Care Teams Slabbing Machine Operator Relationship Specialty Start Date End Date Annalee Lerma APRN, ALTERATION MANAGER [address] [place] [facility] [place] [phone] PCP - General Nurse Practitioner 04/12/24 documented as of this encounter
--- OUTSIDE RECORDS SUMMARY | 2025-02-13 22:33 | XMS_ITS | Encounter Summary ---
Author Organization [employer] Address [address] [place] [address] Care Team Providers Care Client Support Representative Name Role Phone Annalee Lerma Saida MIMS, IAP DISPLAYS ANALYST Primary Care Provider Encounter Details Date Type Department Care Team (Late st Contact Info) Description 03/02/2012 Consent for Procedure/Treatme nt [facility] Department INFORMED CONSENT RECORD Social History Tobacco Use Types Packs/Day Years Used Date Smoking Tobacco: Former Cigarettes 1.5 10 0 06/14/1987 - 06/14/1997 Smokeless Tobacco: Never Alcohol Use Standard Drinks/Week Comments Yes 0 (1 standard drink = 0.6 oz pur e alcohol) twice a year Comments No Sex and Gender Information Value Date Recorded Sex Assigned at Female 06/18/2022 1:13 PM SETTLEMENT WORKER Legal Sex Female 7:25 AM CDT Gender Identity Not on file Sexual Orientation Not on file 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 [address] Nanda Ritter, PhD, LP [address] [place] [address] 03/08/2025 4:00 PM CDT Phone Visit [facility] [address] [place] [address] Bertrand Apple MD [address] [place] [address] 03/19/2025 8:00 AM CDT Telemedicine [facility] Pain Management [address] [facility] [place] [address] Nanda Ritter, PhD, LP [address] [place] [address] 04/02/2025 8:00 AM CDT Telemedicine [facility] Pain Management [address] [facility] [place] [address] Nanda Ritter, PhD, LP [address] [place] [address] 04/16/2025 8:00 AM SETTLEMENT WORKER Telemedicine [facility] Pain Management [address] [facility] [place] [address] Nanda Ritter, PhD, LP [address] [place] [address] 04/30/2025 8:00 AM SETTLEMENT WORKER Telemedicine [facility] Pain Management [address] [facility] [place] [address] Nanda Ritter, PhD, LP [address] [place] [address] [place] [address] 05/14/2025 8:00 AM SETTLEMENT WORKER Telemedicine [facility] Pain Management [address] [facility] [place], [place] [phone] Nanda Ritter, PhD, LP [address] [place] [address] 05/28/2025 8:00 AM SETTLEMENT WORKER Telemedicine [facility] Pain Management [address] [facility] [place], [place] [id number] Nanda Ritter, PhD, LP [address] [place] [phone] documented as of this encounter Visit Diagnoses Not on filedocumented in this encounter Additional Health Concerns Infection Onset Date Last Indicated Resolved Time ESBL - Contact (retired) Comment:Urine 02/20/14 03/06/2014 03/06/2014 01/13/2018 3:22 PM CDT MRSA Comment:10/01/2017 from urgency room in RLQ absess 10/11/2018 10/11/2018 C-Diff 08/01/2024 08/01/2024 08/11/2024 3:18 AM SETTLEMENT WORKER documented as of this encounter Care Teams Client Support Representative Relationship Specialty Start Date End Date Annalee Lerma, ACCREDITED LEGAL SECRETARY, IAP DISPLAYS ANALYST [address] [place] [phone] PCP - General Nurse Practitioner 04/12/24 documented as of this encounter
[2025-02-13] MEDS: OLANZapine 5 MG/ML inj IVP (23:11)
== END 2025-02-14 00:10 | disposition home or self-care (01) ==
PROVIDERS: Emergency Provider Emergency Medicine
DX: R51.9 Headache, unspecified (principal); R42 Dizziness and giddiness
CPT/HCPCS: 70450; 70496; 70498; 99283; 99284; J7030; Q9967